=== PATIENT | female | born 2000 | race African-American/Black ===

== ENCOUNTER 2022-06-06 20:32 | Observation (INO) | payer BC, OTHER, SELFPAY ==
--- NOTE | 2022-06-18 08:56 | PM.OBTRLD ---
OB - Triage/Final Diagnosis Visit Information Comments/Additional reasons for admission: I have assessed the risk for this patient, Joyce Vieyra, and determined that she would benefit from observation care. Final Diagnosis (1) False labor: Code(s): O47.9 - False labor, unspecified Status: Acute
== END 2022-06-06 22:30 | disposition home or self-care (01) ==
PROVIDERS: Admitting Provider Obstetrics & Gynecology; Visit Provider Obstetrics & Gynecology
DX: O47.9 False labor, unspecified (principal); Z3A.00 Weeks of gestation of pregnancy not specified
CPT/HCPCS: G0378; G0379

== ENCOUNTER 2022-06-17 19:46 | Inpatient (IN) | payer BC, OTHER, SELFPAY ==
--- NOTE | 2022-06-17 19:46 | LDADM ---
This patient, Joyce Vieyra, was admitted to Labor/Delivery/Recovery 105 on 06/17/22 at 19:46. Plans for labor, pain management and were discussed with patient. Patient/family oriented to hospital policies and general routines including ID bracelet, bed and alarms, visiting hours, pain management, procedures, bathroom and other care routines, personal items, smoking policy, room service/diet and guest tray routines, security routines, and visiting hours. Patient/Family are encouraged to report perceived risks to care and to ask questions if they do not understand what they are told or what they should do. See OBIX for further documentation.
[2022-06-17 21:27] VITALS: BMI 24.9
[2022-06-17 21:31] VITALS: BP 93/53; PULSE 70
[2022-06-17 21:46] VITALS: BP 112/67; PULSE 80
[2022-06-17 21:49] VITALS: RESP 16; TEMP 37.1
[2022-06-17 21:51] LABS: Basophils Percent Auto 0.3 % (0.2-1.2); Eosinophils Absolute Auto 0.1 K/mm3 (0-0.3); Eosinophils Percent Auto 0.8 % (0-4.4); Hemoglobin 11.3 g/dL (12.0-15.0); Immature Granulocyte Absolute 0.18 K/mm3 (0.00-0.031); Immature Granulocyte Percent A 1.5 % (0-0.5); Lymphocytes Absolute Auto 1.31 K/mm3 (0.9-3.2); Lymphocytes Percent Auto 11.1 % (18.3-44.2); Mean Corpuscular HGB Conc 32.3 g/dl (32-36); Mean Corpuscular Hemoglobin 29.4 pg (26-34); Mean Corpuscular Volume 90.9 fl (80-100); Mean Platelet Volume 9.8 fl (7.4-10.4); Monocytes Percent Auto 8.1 % (2.6-8.5); Neutrophils Absolute Auto 9.2 K/mm3 (1.3-6.7); Neutrophils Percent Auto 78.2 % (45.5-73.1); Platelet Count Result 180 k/mm3 (150-375); Red Blood Count 3.85 M/mm3 (4.2-5.4); Red Cell Distribution Width 17.3 % (11.5-14.5); White Blood Count 11.8 K/mm3 (4.5-10.0)
[2022-06-17 22:39] VITALS: BP 104/83; PULSE 75
[2022-06-17 23:59] VITALS: BP 120/77; PULSE 78
[2022-06-18] VITALS (26 sets, daily range): BP systolic 92–129; BP diastolic 51–83; PULSE 62–93; RESP 14–18; TEMP 36.6–37.3; O2SAT 91–98
[2022-06-18] MEDS: fentaNYL CITRATE INJ (*CRX) 100 MCG/2 ML VIAL 50 MCG IV PUSH ×2 (00:34→02:22)
[2022-06-18] MEDS: fentaNYL CITRATE INJ (*CRX) 100 MCG/2 ML VIAL IV PUSH ×4 (03:27→09:11)
--- NOTE | 2022-06-18 08:47 | WPDOBADMIT ---
Obstetrics - Admit Note Admission Note: 22 y /o at 39 weeks here in spontaneous labor. VSS Regular contractions FHR category 1 Cervix 5/90/0 AROM small amount of clear odorless fluid Anticipate record reviewed. No pertinent additions to the history and/or any subsequent changes in the physical findings that are not consistent with the expected course of the were found. Additions to the history and/or subsequent changes in the physical findings follow. None.
--- NOTE | 2022-06-18 10:51 | PM.OBPRVD ---
OB - Delivery Note Procedure Delivery date: 06/18/22 Procedure: Induction method: None Delivery augmentation: Rupture of Membranes Delivery monitor: External FHT and External Uterine Route of delivery: Episiotomy description: None Laceration Description: Superficial and Other (Small superficial left inner labia and left perineal. Just skin involvement. No suture needed.) Quantitative Blood Loss (ml): 104 Anesthesia type: None Narrative: Called for unmedicated delivery. Spontaneous delivery. to mother abdomen. Mother and baby in stable condition. Cord venous gas collected and handed off to staff. Unable to collect arterial. [place] Baby Date of : 06/18/22 Time of : 10:35 Weeks of gestation at delivery: 39 Infant gender: Female Weight (pounds): 7 Weight (ounces): 7 presentation: vertex position: Left Occiput Anterior Placenta delivery description: Spontaneous score one minute: 9 score five minutes: 9
[2022-06-18] MEDS: OXYTOCIN 30 UNITS/NS 500 ML 30 UNITS/500 ML BAG 999 UNITS IV CONT (11:31)
[2022-06-18] MEDS: OXYTOCIN 30 UNITS/NS 500 ML 30 UNITS/500 ML BAG 125 UNITS IV CONT (11:33)
[2022-06-18] MEDS: HYDROcodone/acetaminophen (*CRX) 5-325 MG TABLET 1 TAB PO (12:21)
[2022-06-18] MEDS: WITCH HAZEL 40 PADS 1 PAD TOPICAL (12:38)
[2022-06-18] MEDS: BENZOCAINE 20% AER SPR (*SP) 56 GM CAN 1 SPRAY TOPICAL (12:38)
--- NOTE | 2022-06-18 15:09 | OBPPTRN ---
[id number] Patient transferred to post room #288 via W/C. Support person present. Oriented to unit, room, information board, rooming in, admission packet and security measures. Patient verbalizes understanding.
[2022-06-18] MEDS: ACETAMINOPHEN 325 MG TABLET 650 MG PO (16:08)
[2022-06-18] MEDS: IBUPROFEN 600 MG TABLET PO (16:11)
[2022-06-19] MEDS: ACETAMINOPHEN 325 MG TABLET 650 MG PO ×3 (00:16→13:05)
[2022-06-19] MEDS: IBUPROFEN 600 MG TABLET PO ×3 (00:17→13:06)
[2022-06-19 00:40] VITALS: BP 101/53; PULSE 73; RESP 14; TEMP 37.1; O2SAT 98
[2022-06-19 04:05] VITALS: BP 98/68; PULSE 67; RESP 16; TEMP 36.4; O2SAT 94
[2022-06-19 05:00] LABS: Hemoglobin 9.9 g/dL (12.0-15.0)
[2022-06-19] MEDS: POLYSACCHARIDE IRON COMPLEX 150 MG CAPSULE PO (07:02)
[2022-06-19] MEDS: MULTIVIT/MIN/PREN/FOL AC/IRON TABLET 1 TAB PO (07:02)
[2022-06-19] MEDS: DOCUSATE SODIUM 100 MG CAPSULE PO (07:02)
[2022-06-19 07:10] VITALS: PULSE 67; RESP 16; O2SAT 94
[2022-06-19 07:45] VITALS: BP 100/60; PULSE 64; RESP 16; TEMP 36.6; O2SAT 98
--- NOTE | 2022-06-19 08:19 | PM.OBPNVD ---
OB - PN: Subj Subjective Date/time seen: 06/19/22 08:19 Patient comments: no complaints baby status: doing well OB - PN: Obj Data Labs 06/19/22 04:12 Labs: Laboratory Results - last 24 hr 06/19/22 04:12 Hgb 9.9 L Hct 30.0 L OB - PN A/P Plan day: 1 Plan: routine care Time Spent With Patient Time: Total time spent is greater than 50% in coordination of care (as documented) at patient's floor/unit and/or counseling patient: Time with patient: less than 15 minutes Review of Systems Review of Systems: All systems reviewed & are unremarkable except as noted in HPI and below Exam Narrative: Fundus firm and vaginal flow controlled. No lower ext redness, warmth, or edema. Negative homans. Const: General: comfortable Chest: Breast/axilla inspection: normal inspection of the breasts Resp: Effort & Inspection: normal respiratory effort Cardio: Rate: regular rate GI: GI Palp: Yes Soft to palpation Psych: Appearance: grossly normal Affect: normal affect Attitude: cooperative Thought content: Yes Normal thought content present Judgement: Good judgement present (Psych)
--- NOTE | 2022-06-19 08:21 | P.DS_ITS ---
DS: Admitting Diagnosis Discharge Date 06/19/22 Admitting Diagnosis Labor DS: Discharge Diagnosis Discharge Diagnosis (1) Vaginal delivery: Code(s): O80 - Encounter for full-term uncomplicated delivery Status: Acute OB - DS: Summary OB Procedures : None OB Procedures Intrapartum: Spontaneous Vag Delivery OB Procedures: : None Time Spent with Patient Time attestation: Total time spent providing and/or coordinating discharge services: DS: Data Data Completed and Pending Labs on day of discharge: Labs from last 24 hours 06/19/22 04:12 Hgb 9.9 L Hct 30.0 L Discharge Plan Discharge Attending physician on discharge: Silvana Gonzalez Discharging Clinician: Silvana Gonzalez Patient Disposition: Home, Self-Care Activity: pelvic rest Diet: as tolerated Patient Instructions: Antibiotic Form Stand Alone Forms: General Discharge Information Follow-up/Referrals: Silvana Gonzalez, CNM [Certified Nurse Accounting Support Specialist] - Discharge Medications: New acetaminophen [Mapap (acetaminophen)] 325 mg Tablet 650 mg PO Q6H PRN (Reason: Mild Pain (1-3) Or Headache) Qty: 20 0RF ibuprofen 600 mg Tablet 600 mg PO Q6H PRN (Reason: Cramping) Qty: 20 0RF No Action No Home Medications Date of admission: 06/17/22 19:46 Primary Care Provider: UNKNOWN,DOCTOR Admitting Provider: Mavis Guthrie Attending physician on admission: Mavis Guthrie Condition: Stable
[2022-06-19 10:02] LABS: Rapid Plasma Reagin Non-Reactive (NonReactive)
[2022-06-19] MEDS: TETANUS,DIPHTHERIA,AC PERTUSSIS ADULT (0.5 ML) BOOSTRIX IM (13:07)
--- NOTE | 2022-06-19 13:22 | PC.NURSE ---
Patient was given the opportunity to view the discharge video Mother & Baby Care, The First Two Weeks and to ask questions. Patient declined viewing the video and has been given the mother/baby guide for home reference.
== END 2022-06-19 14:50 | disposition home or self-care (01) | DRG 807 ==
LOC: ANHLDR 21:18 → ANHOB2 06-18 13:40
PROVIDERS: Advanced Practice Midwife; Admitting Provider Obstetrics & Gynecology; Visit Provider Obstetrics & Gynecology
DX: O70.0 First degree perineal laceration during delivery (principal); Z37.0 Single live birth; Z3A.39 39 weeks gestation of pregnancy
CPT/HCPCS: 36415; 85014; 85018; 85025; 86592; 86850; 86900; 86901; 90715; A9270; J2590; J2795; J3010

== ENCOUNTER 2024-11-25 18:56 | Emergency (ER) | payer SELFPAY ==
--- NOTE | ~2024-11-25 | US_ITS ---
EXAMINATION: US OB <=14 wk fetus w TV INDICATION: abdominal pain, unknown TECHNIQUE: Sonography of the pelvis was performed by transabdominal and transvaginal techniques. COMPARISON: None. RESULT: Uterus: 8.9 x 5.7 x 6.5 cm. Anteverted. Irregular, thickened endometrium measuring up to 22 mm, with multifocal, irregular hypoechoic cystic areas. Intrauterine gestational sac: Not seen. Right ovary: 3.6 x 2.0 x 2.8 cm. Vascular flow is present. No adnexal mass. Left ovary: 2.7 x 1.2 x 2.1 cm. Vascular flow is present. No adnexal mass. Pelvis free fluid: Moderate volume pelvic ascites. IMPRESSION: of unknown location. No definite intrauterine gestational sac identified. Irregular, thickened endometrium, with several h ypoechoic cystic areas, any one of which could represent an early gestational sac, without identifiab le pole. No sonographic evidence of ectopic . Recommend close clinical and sonographic follow-up. Reviewed, dictated and finalized at location K. IMPRESSION: of unknown location. No definite intrauterine gestational sac identified. Irregular, thickened endom etrium, with several hypoechoic cystic areas, any one of which could represent an early gestational sac, without identifiable pole. No sonographic evidence of ectopic . Recommend close clinical and sonographic follow-up.
[2024-11-25 18:57] VITALS: BP 109/66; PULSE 90; RESP 18; TEMP 36.6; O2SAT 100
--- OUTSIDE RECORDS SUMMARY | 2024-11-25 18:58 | XMS_ITS | Clinical Summary ---
Author Organization [facility] Address [address] [place] [address] Care Team Providers Care Software Sales Executive Name Role Phone Unavailable Primary Care Provider Unavailabl e Source Comments [facility],non-owned Affiliates and Associated Physician Practices is amultiple site organization consisting of ambulatory clinics and hospital sitesin [place], [place], [place] and [place]. This disclosure is being madepursuant to the Care Everywhere program and may not contain all information available regarding this patient. Last updated 18.[facility] Allergies No known active allergies Medications * Be aware that medications may not be up to date on this document. Alwaysverify current medications with the patient. 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 Not hard at all 09/03/2023 [facility] [place] of Occupat ional Health - Occupational Stress Questionnaire Answer Date Recorded Do you feel stress - tense, restless, nervous, or anxious, or unable to sleep at night because your mind is troubled all the time - these days? Only a little 09/03/2023 Hunger Vital Sign Answer Date Recorded Within the past 12 months, y ou worried that your food would run out before you got the money to buy more. Never true 09/03/19 24 Within the past 12 months, t he food you bought just didn't last and you didn't have money to get more. Never true 09/03/2023 PRAPARE - Transportation Answer Date Re corded In the past 12 months, has l ack of transportation kept you from medical appointments or from getting medications? No 09/2023 In the past 12 months, has l ack of transportation kept you from meetings, work, or from getting things needed for daily living? No 09/03/2023 Housing Stability Vital Sign Answer Memo e Recorded In the last 12 months, was t here a time when you were not able to pay the mortgage or rent on time? Yes 09/03/2023 In the last 12 months, how many places have you lived? 2 09/03/2023 In the last 12 months, was t here a time when you did not have a steady place to sleep or slept in a nursing home (including now)? No 09/03/2023 [place] Depression Scale Answer Date Recorded [place] Depression Scale Total 0 09/03/2023 The thought of harming myself has occurred to me . Never 09/03/2023 Comments No Sex and Gender Information Value Date Recorded Sex Assigned at Not on file Legal Sex Female 1:36 PM CDT Gender Identity Not on file Sexual Orientation Not on file Last Filed Vital Signs Vital Sign Reading Time Taken Comments Blood Pressure 107/69 09/03/2023 9:58 AM CDT Pulse 64 09/03/2023 9:58 AM CDT Temperature - - Respiratory Rate 16 09/03/2023 9:58 AM CDT Oxygen Saturation - - Inhaled Oxygen Concentration - - Weight 52.2 kg (115 lb) 09/03/2023 9:58 AM CDT Height - - Body Mass Index - - Plan of Treatment Health Maintenance Due Date Last Done Comments HPV VACCINE (1 - 3-dose series) 2013 DTAP/TDAP/TD VACCINES (1 - Tdap) 2017 HEPATITIS B VACCINE (1 of 3 - 19+ 3-dose series) 2017 COVID-19 VACCINE (1 - 2023-2 5 season) 2023 DEPRESSION SCREENING 04/30/2024 INFLUENZA VACCINE (#1) 2024 8, 02/02/2016, 01/28/2013 PAP SMEAR 09/02/2026 09/03/2023 ZOSTER VACCINE (1 of 2) 2048 HEPATITIS C SCREENING Completed 09/03/2023 HIV SCREENING Completed 09/03/2023 HIB VACCINE Aged Out No longer eligi ble based on patient's age to complete this topic MENINGOCOCCAL (Group B) VACCINE SHARED DECISION-MAKING Aged Out No longer eligible based on patient's age to complete this topic MENINGOCOCCAL GROUPS A/C/Y/W VACCINE Aged Out No longer eligible b ased on patient's age to complete this topic PNEUMOCOCCAL VACCINE Aged Out No long er eligible based on patient's age to complete this topic Procedures Procedure Name Priority Date/Time Associated Diagnosis Comments PAP IG LB RFLX HPV APTIMA ASCU Routine 09/03/2023 10:48 AM CDT Supervision of high risk , antepartum HEPATITIS C ANTIBODY Routine 09/03/2023 10:46 AM CDT Supervision of high risk , antepartum HIV-1 HIV-2 ANTIBODY + HIV P24 AG PANEL Routine 09/03/2023 10:46 AM CDT Supervision of high risk , antepartum from Last 3 Months or Most Recently Relevant to Health Maintenance Results * PAP IG LB RFLX HPV APTIMA ASCU (09/03/2023 10:48 AM CDT) Diagnosis Comment 09/06/2023 3:10 PM CDT [facility] ([facility]) Comment: NEGATIVE FOR INTRAEPITHELIAL LESION OR MALIGNANCY. REACTIVE CELLULAR CHANGES AND/OR REPAIR ARE PRESENT. Specimen Adequacy Comment 024 3:10 PM CDT [facility] ([facility]) Comment: Satisfactory for evaluation. Endocervical and/or squamous metaplastic cells (endocervical component) are present. Performed by Comment 09/06/2023 3:10 PM CDT [facility] ([facility]) Comment:Nanda Chen Cytote chnologist (ASCP) Electronically Signed by Comment 09/06/2023 3:10 PM CDT [facility] ([facility]) Comment:Krystin Nelson MD, P athologist Comment . 09/06/2023 3:10 PM CDT [facility] ([facility]) Note Comment 09/06/2023 3:10 PM CDT [facility] ([facility]) Comment: The Pap smear is a screening test designed to aid in the detection of premalignant and malignant conditions of the uterine cervix. It is not a diagnostic procedure and should not be used as the sole means of detecting cervical cancer. Both false-positive and false-negative reports do occur. IGLBP CPT Code Automation Comment 09/06/2023 3:10 PM CDT [facility] ([facility]) Comment: This liquid based ThinPrep(R) pap test was screened with the use of an image guided system. Note Comment 09/06/2023 3:10 PM CDT [facility] ([facility]) Comment: The HPV DNA reflex criteria were not met with this specimen result therefore, no HPV testing was performed. Pathology/Cytolo gy ENTIRE ENDOCERVIX / Unknown Collection / Unknown 09/03/2023 10:48 AM CDT 09/03/2023 11:16 AM CDT Narrative [facility] ([facility]) - 09/06/2023 3:10 PM CDT Performed at: 01 - [address] [id number] [place] Machine Operator Helper: Gina Fernandez MD, Phone: [phone] Specimen Comment: No. of containers..01 ThinPrep Vial us Sherry Sutherland MD LAB - PATHOLOGY /CYTOLOGY ORDERABLES Final Result [facility] ([facility]) [address] [place] [address] * HIV-1 HIV-2 ANTIBODY + HIV P24 AG PANEL (09/03/2023 10:46 AM CDT) HIV1/2 Ab + P24 Ag Non Reactive Non Reactive 09/03/2023 12:09 PM CDT [facility] Blood BLOOD SPECIMEN / Unknown Venipuncture / Unknown 09/03/2023 10:46 AM CDT 09/03/2023 11:18 AM CDT Narrative [facility] - 09/03/2023 12:09 PM CDT No Laboratory evidence of HIV infection. Sherry Sutherland MD LAB - CHEMISTRY ORDERABLES Final Result [facility] [address] [place], [place] [id number] * HEPATITIS C ANTIBODY (09/03/2023 10:46 AM CDT) Pathologist [facility] HCV Antibody Screen Non Reactive Non Reactive 09/03/2023 12:10 PM CDT [facility] Blood BLOOD SPECIMEN / Unknown Venipuncture / Unknown 09/03/2023 10:46 AM CDT 09/03/2023 11:18 AM CDT Narrative [facility] - 09/03/2023 12:10 PM CDT Non Reactive - Antibodies to Hepatitis C virus (HCV) were not detected, result does not exclude early acute HCV infection. Sherry Sutherland MD LAB - CHEMISTRY ORDERABLES Final Result [facility] [address] [place] [id number] from Last 3 Months or Most Recently Relevant to Health Maintenance Insurance [facility]
--- OUTSIDE RECORDS SUMMARY | 2024-11-25 18:58 | XMS_ITS | Encounter Summary ---
Author Organization [facility] Address [address] [place] [address] Phone Care Team Providers Care Loan Analyst Name Role Phone Estelle Lopez APRN, CNP Unavailable [phone] Barak Bucio Primary Care Provider Arthur Espinosa MD Unavailable [phone] Reason for Visit * Reason Comments Medication Refill Encounter Details Date Type Department Care Team (Late st Contact Info) Description 06/30/2023 Refill [facility] - Primary Care - [place] [address] [place] [address] Barak Bucio PAC [address] [place] [address] Medication Refill Social History Tobacco Use Types Packs/Day Years Used Date Smoking Tobacco: Never Smokeless Tobacco: Never Alcohol Use Standard Drinks/Week Comments Yes 0 (1 standard drink = 0.6 oz pur e alcohol) rare PHQ-2 Answer Date Recorded Total Score - Questions 1-9 0 06/28 Sexually Active Control Partners Comments Yes None, Male Condom Male Comments Unknown Sex and Gender Information Value Date Recorded Sex Assigned at Not on file Legal Sex Female 7:20 PM CDT Gender Identity Not on file Sexual Orientation Not on file documented as of this encounter Miscellaneous Notes * Telephone Encounter - Barak Bucio PAC - 07/02/2023 1:24 PM CST Refill approved. ING SUPERVISOR * Telephone Encounter - Castro Membreno RN - 07/02/2023 8:04 AM CST Medication failed the protocol, provider to review and approve the medication order if appropriate. Requested Prescriptions Pending Prescriptions Disp Refills triamcinolone (KENALOG) 0.1 % Cream [Pharmacy Med Name: TRIAMCINOLONE 0.1% CREAM 80GM] 80 g 0 Sig: APPLY EXTERNALLY TO RASH ON ELBOW AND KNEE CREASES TWICE DAILY Not Delegated - Topical Steroids Protocol Failed - 06/30/2023 2:25 PM Failed - This refill cannot be delegated Passed - Visit with relevant provider in past 12 months or upcoming 90 days Recent Visits Date Type Provider Dept 06/29/23 Office Visit Barak Bucio PAC [facility] 05/28/23 Office Visit Barak Bucio PAC [facility] Showing recent visits within past 365 days and meeting all other requirements Future Appointments Date Type Provider Dept 07/30/23 Appointment Barak Bucio PAC [facility] Showing future appointments within next 90 days and meeting all other requirements ING SUPERVISOR documented in this encounter Plan of Treatment Not on file documented as of this encounter Visit Diagnoses Diagnosis Flexural eczema Other atopic dermatitis and related conditions documented in this encounter Additional Health Concerns Infection Onset Date Last Indicated Resolved Time COVID - 19 12/22/2023 12/22/2023 01/01/2024 12:1 6 AM CDT COVID - 19 04/27/2024 04/27/2024 04/27/2024 1:50 PM CLOSING SUPERVISOR Assessment Noted Time PHQ-9 Depression Total Score: 0 05/28/19 9:38 AM CLOSING SUPERVISOR documented as of this encounter Care Teams Loan Analyst Relationship Specialty Start Date End Date Barak Bucio PAC [address] [place] [id number] PCP - General Physician Shipping Supervisor 05/28/23 Estelle Lopez, ELECTRICAL TROUBLESHOOTER, HOTEL SERVICES SUPERVISOR [address] [place] [address] Nurse Practitioner Advanced Practice Nurse 07/12/20 06/10/24 Arthur Espinosa MD [address] [address] Consulting Physician Urology 11/04/24 documented as of this encounter
--- OUTSIDE RECORDS SUMMARY | 2024-11-25 18:58 | XMS_ITS | Data Portability ---
Author Organization [facility] Address [address] [place] [address] [place] [address] Assessment No assessment recorded. Plan of Treatment Reminders Order Date Submit Date Provider Last Modified By Organization Details Last Modified Time Details Appointments None recorded. Lab None recorded. Referral None recorded. Procedures None recorded. Surgeries None recorded. Imaging US, obstetric, biophysical profile + non-stress test 2022 023 [email or web address] [place], [facility] [address], [address], [place], [address], 3 21:48:12 non-stress test 2022 023 [email or web address] [place] [facility] [address], [address], [place], [address], 3 12:07:26 non-stress test 2022 023 [email or web address] [place] [facility] [address], [address], [place], [address], 3 11:54:18 Medication Orders None recorded. Patient TargetsNo targets recorded. Patient InstructionsNo instructions recorded. Reason for Referral None Reported. Results Created Date Observation Date Name Description Value Unit Range Abnormal Flag Note LastModifiedBy Organization Detail LastModifiedTime 05/30/19 23 05/30/2022 CULTU RE: GROUP B STREP SCREE N, REFLE X SUSCE PTIBI LITY result report SEE RESULT S BELOW Test: Cultu re: Group B Strep , Refle x Susce ptibi lity ([facility] ) Speci men Sourc e: Vagin a/Rec fiorella Speci men Type: Vagin al/Re ctal Speci men Date: 2022 1:39 PM Resul t Date: 023 12:28 PM Resul t Statu s: Final resul t Abnor mal: No Resul ting Lab: [facility] [address] [facility] [address] Tel: CULTU RE ----- ----- ----- --- No Group B strep isola susan at 2 days (joan ctive broth enhan cemen t) Not Available [facility] (Lab) [address], [place], [address], 06/02/2022 13:30:53 05/11/19 23 05/11/2022 US, obste tric, bioph ysica l profi le + non-s tress test No observ ation record ed. [email or web address] [place] [address], [place], [address], 05/11/2022 13:13:16 05/11/19 23 05/11/2022 non-s tress test No observ ation record ed. [email or web address] [place] [address], [place], [address], 05/11/2022 12:56:14 05/11/19 23 05/11/2022 US, obstute tric, bioph ysica l profi le + non-s tress test No observ ation record ed. [email or web address] [address] [facility], [place], [address], 05/12/2022 11:22:40 05/16/19 23 05/16/2022 non-s tress test No observ ation record ed. [email or web address] [place] [address], [place], [address], 05/16/2022 21:38:00 05/16/19 23 05/16/2022 US, obste tric, follo w-up No observ ation record ed. [email or web address] [place] [address], [place], [address], 05/16/2022 11:57:52 05/16/19 23 05/16/2022 US, obste tric, follo w-up No observ ation record ed. [email or web address] [address], [place], [address], 05/17/2022 18:37:04 05/23/19 23 05/23/2022 non-s tress test No observ ation record ed. [email or web address] [place] [address], [place], [address], 05/23/2022 11:47:25 05/23/19 23 05/23/2022 US, obste tric, bioph ysica l profi le + non-s tress test No observ ation record ed. [email or web address] [place] [address], [place], [address], 05/23/2022 13:44:19 05/23/19 23 05/23/2022 US, obste tric, bioph ysica l profi le + non-s tress test No observ ation record ed. [email or web address] [address], [place], [address], 05/24/2022 11:10:51 05/30/19 23 05/30/2022 US, obste tric, bioph ysica l profi le + non-s tress test No observ ation record ed. [email or web address] [place] [address], [place], [address], 05/30/2022 11:43:55 05/30/19 23 05/30/2022 US, obste tric, bioph ysica l profi le + non-s tress test No observ ation record ed. [email or web address] [address], [place], [address], 05/30/2022 23:35:35 05/30/19 23 05/30/2022 non-s tress test No observ ation record ed. [email or web address] [place] [address], [place], [address], 05/30/2022 22:31:10 06/06/19 23 06/06/2022 non-s tress test No observ ation record ed. [email or web address] [place] [address], [place], [address], 06/06/2022 11:31:34 06/06/19 23 06/06/2022 US, obste tric, follo w-up No observ ation record ed. [email or web address] [place] [address], [place], [address], 06/06/2022 13:02:02 06/06/19 23 06/06/2022 US, obste tric, follo w-up No observ ation record ed. [email or web address] [address], [place], [address], 06/08/2022 23:14:15 06/13/19 23 06/13/2022 US, obste tric, bioph ysica l profi le + non-s tress test No observ ation record ed. [email or web address] [place] [address], [place], [address], 06/13/2022 12:40:44 06/13/19 23 06/13/2022 US, obste tric, bioph ysica l profi le + non-s tress test No observ ation record ed. [email or web address] [address], [place], [address], 06/13/2022 17:56:31 06/13/19 23 06/13/2022 non-s tress test No observ ation record ed. [email or web address] [place] [address], [place], [address], 06/13/2022 17:14:16 Result Notes None recorded. Problems Name Problem SNOMED Code Status Onset Date Resolution Date Notes Provider Name and Address Organization Details Recorded Time Infectio n by Marge thornton [id number] Completed SILVERIO neg, repeat STD testing 3rd tri. Retest 05/04 [facility] 3 16:02:37 Anemia of pregnanc y [id number] Completed to start Fe [facility] [place] [facility] 3 16:02:37 History of previous intraute rine growth restrict ed [id number] Completed weekly NST [facility] 3 16:02:37 Problem Notes None recorded. Procedures Surgical History Date Name Laterality Status Provider Name and Address Organization Details Recorded Time 04/30/19 21 termination of completed Love Ty [facility] 05/23/2022 12:31:27 04/30/19 18 Ectopic completed Kourtney Adorno [facility] 11/17/2021 10:04:00 Imaging Results None recorded. Procedure Notes None recorded. Medical Equipment None Reported. Allergies No known drug allergies Medications Name Sig Start Date Stop Date Status Note LastModified by Organization Details LastModified Time Pain Reliever (acetaminop hen) 325 mg tablet 07/17 completed Not Available Not Available Not Available metronidazo le 0.75 % (37.5 mg/5 gram) vaginal gel INSERT 1 APPLICATO RFUL VAGINALLY EVERY NIGHT FOR 5 DAYS 11/17 completed Not Available Not Available Not Available ondansetron HCl 4 mg tablet TAKE 1 TABLET BY MOUTH EVERY 4 TO 6 HOURS NEEDED FOR NAUSEA OR VOMITING 12/15 completed Not Available Not Available Not Available metronidazo le 500 mg tablet TAKE 1 TABLET BY MOUTH TWICE DAILY FOR 7 DAYS DIRECTED 12/15 completed Not Available Not Available Not Available sulfamethox azole 800 mg-trimetho prim 160 mg tablet TAKE 1 TABLET BY MOUTH TWICE DAILY FOR 5 DAYS 11/17 completed Not Available Not Available Not Available cephalexin 500 mg capsule TAKE ONE CAPSULE BY MOUTH THREE TIMES DAILY FOR 7 DAYS 11/17 completed Not Available Not Available Not Available ibuprofen 600 mg tablet TAKE 1 TABLET BY MOUTH EVERY 6 HOURS NEEDED FOR CRAMPING 07/17 completed Not Available Not Available Not Available metoclopram mala 10 mg tablet 11/17 completed Not Available Not Available Not Available nitrofurant oin monohydrate /macrocryst als 100 mg capsule TAKE 1 CAPSULE BY MOUTH TWICE DAILY WITH MEALS FOR 7 DAYS 12/15 completed Not Available Not Available Not Available 28 mg iron-800 mcg tablet TAKE 1 TABLET BY MOUTH EVERY NIGHT FOR 30 DAYS 11/17 completed Not Available Not Available Not Available ID NOW COVID-19 Test Kit TEST DIRECTED TODAY 02/06 completed Not Available Not Available Not Available Vitals Date Recorded Body height Body mass index (BMI) Body weight Systolic And Diastolic Provider Name and Address Organization Details Last Updated DateTime 06/06/2022 165.1 cm 24.3 kg/m2 14743.486 02 g 99/65 mm[Hg] Christine Cantu [facility] 06/06/2022 11:54:42 Date Recorded Body height Body mass index (BMI) Body weight Systolic And Diastolic Provider Name and Address Organization Details Last Updated DateTime 06/13/2022 165.1 cm 24.6 kg/m2 35361.670 76 g 100/65 mm[Hg] Love Ty [facility] 06/13/2022 12:10:01 Date Recorded Body weight Provider Name an d Address Organization Details Last Updated DateTime 07/17/2022 99760.40180 g Nigel Barnett [facility] 08/14/2022 16:02:41 Date Recorded Body height Body mass index (BMI) Systolic And Diastolic Provider Name and Address Organization Details Last Updated DateTime 07/17/2022 165.1 cm 22.1 kg/m2 122/83 mm[Hg] Love Ty [facility] 07/17/2022 12:28:05 Social History Question Answer Notes LastModified by Organizat ion Details LastModified Time Tobacco Smoking Status Never Smoker Terry Bartholomew moiz, [facility] 02/06/2022 10:58:21 Do You Have An Advance Directive? No Information n ot available 11/17/2021 If You Are , What Was Your Level Of Alcohol Consumption Prior To ? Occasional [email or web address] Information not available 02/06/2022 How Many Years Have You Consumed Alcohol? 2 Information not available 11/17/2021 Are You Blind Or Do You Have Difficulty Seeing? No Information n ot available 11/17/2021 What Is Your Level Of Caffeine Consumption? Occasional Information not available 11/17/2021 How Much Tobacco Do You Chew? None Information not available 11/17/2021 In The 14 Days Before Symptom Onset, Have You Had Close Contact With A Laboratory-confirm ed COVID-19 While That Case Was Ill? No Information n ot available 11/17/2021 In The 14 Days Before Symptom Onset, Have You Had Close Contact With A Person Who Is Under Investigation For COVID-19 While That Person Was Ill? No Information not available 11/17/2021 Have You Been To An Area Known To Be High Risk For COVID-19? No Information not available 11/17/2021 Are You Deaf Or Do You Have Serious Difficulty Hearing? No Information not available 11/17/2021 What Type Of Diet Are You Following? REGULAR Information n ot available 11/17/2021 What Is The Highest Grade Or Level Of School You Have Completed Or The Highest Degree You Have Received? [id number] Information not available 11/17/2021 Are There Any Guns Present In Your Home? No Information not available 11/17/2021 Do You Use Protection During Sex? No Information not available 11/17/2021 Do You Use Your Seat Belt Or Car Seat Routinely? Yes Information not available 11/17/2021 Do You Have Smoke And Carbon Monoxide Detectors In Your Home? Yes Information not available 11/17/2021 How Much Tobacco Do You Smoke? No Information not available 11/17/2021 Do You Use Sunscreen Routinely? No Information not available 11/17/2021 Have You Used IV Drugs? No Information not available 11/17/2021 Do You Have Difficulty Walking Or Climbing Stairs? No [email or web address] Information not available 03/07/2022 Sex: Unknown Functional Status Question Answer Note LastModified by Organizat ion Details LastModified Time Do you use any illicit or recreational drugs? No Information not available 11/17/2021 What is your level of alcohol consumption? None Information not available 11/17/2021 Are you able to walk? YESWOREST Information not available 11/17/2021 Are you able to care for yourself independently? Yes Information not available 03/07/2022 What is your occupation? D[employer] Information not available 11/17/2021 Do you have difficulty dressing, bathing, grooming, or toileting? No [email or web address] Information not available 03/07/2022 What is your exercise level? None Information not available 11/17/2021 Mental Status Question Answer Note LastModified by Organization D etails LastModified Time Do you feel stressed (tense, restless, nervous, or anxious, or unable to sleep at night)? [id number] Information not available 11/17/2021 Family History Nothing Reported. Medical History Condition Response Allergies (Food, seasonal, environmental ) N Other Y Breast Cancer N Drug/Latex Allergies/Reactions N Blood Transfusion N Dermatologic Disorders N Lung Disease N Defects or Inherited Disease N Breast Problem N Gestational Diabetes N Hematologic disorders N Anesthesia Complications N History of STI N Deep Vein Thrombosis N Polycystic ovary syndrome N Anxiety Disorder N Autoimmune disease N Arthritis N Infertility N Polyps N Acid Reflux (GERD) N History of abnormal pap N Cancer N Stroke N Varicosities N Neurologic/Epilepsy N Endometriosis N High Cholesterol N Headaches N Fibromyalgia N Kidney Disease N Heart Problems N Kidney or Bladder Problems N Thyroid Problems N GI Problems N Eating Disorder N Anemia Y Art (IVF or FET) N Psychiatric Illness N Ovarian Cancer N Diabetes N Pulmonary (TB, Asthma) N Hepatitis/Liver Disease N No Past Medical History N Eczema N Urinary Tract Infection N Abuse/Domestic Violence N Asthma N Trauma/Violence N Depression/ depression N Heart Disease N Pre-Eclampsia N Hypertension N Osteoporosis N Thrombophilias N Gynecological History Statement/Question Response STIs/STDs N Date of Last Pap Smear Sexual Problems? N Current Control Method None LMP Unknown Sexually Active? Y Obstetrics History GPAL:G 4 P 2 0 2 2 Type Value Full Term 2 Induced 1 Living 2 Ectopics 1 Total 4 Past Encounters Encounter ID Performer Location Encounter Start Date Encounter Closed Date Diagnosis/Indication Diagnosis SNOMED-CT Code Diagnosis ICD10 Code Diagnosis Note [id number] Yobany Guthrie MD [place] [address] [address] 11/17/2021 09:27:58 11/17/2021 09:55:39 [id number] Yobany Guthrie MD [place] [address] [address] 11/17/2021 09:28:12 11/17/2021 11:16:12 Urinary symptoms 680200431 R39.9 to treat for UTI. She was diagnosed with UTI previously . She was not treated. She denies any dysuria or hematuria or urgency. Amenorrhea 49544313 N91. 2 This patient is a 21-year-ol d multiparou s female who presents for amenorrhea . She has positive test. Ultrasound performed today. She has an 8 week 3 day gestation. She is continent of her last menstrual. She denies any nausea, vomiting, fever, chills. She denies any vaginal bleeding or cramping. We discussed early care today we spent more than 30 minutes face-to-fa ce. More than 50% was counseling . She will follow-up in 4 weeks . She will have 1st visit in 4 weeks. [id number] Yobany Guthrie MD [place] [address] [address] 12/15/2021 11:37:02 12/15/2021 12:10:24 screening 769444671 Z36.82 [id number] Yobany Guthrie MD [place] [address] [address] 12/15/2021 11:37:44 12/15/2021 13:52:36 Routine care 895587418 Z34.81 [id number] Radha Aguilar MD [place] [address] [address] 01/09/2022 12:04:44 01/11/2022 15:27:15 Routine care 248705684 Z34.82 Anemia of 2734 2003 O99.019 [id number] Radha Aguilar MD [place] [address] [address] 02/06/2022 10:58:13 02/06/2022 12:42:19 screening for malformation 873363124 Z36.3 [id number] Radha Aguilar MD [place] [address] [address] 02/06/2022 10:58:34 02/06/2022 13:54:09 Routine care 007087232 Z34.82 [id number] Yobany Guthrie MD [place] [address],[place] [address] 03/07/2022 11:13:28 03/07/2022 12:18:41 Routine care 943477145 Z34.81 [id number] MD Mary Abreu [address] [address] 03/30/2022 11:56:15 03/30/2022 12:55:38 Routine care 476029543 Z34.81 [id number] MD Mary Abreu [address] [address] 04/17/2022 11:32:38 04/17/2022 12:53:42 History of previous intrauterine growth restricted 5442397795 75289 Z87.59 [id number] MD Mary Abreu [address] [address] 04/19/2022 09:33:34 04/19/2022 10:12:42 Medical examination for suspected condition 381953870 Z03.74 Z3A.30 [id number] MD Mary Abreu [address] [address] 05/04/2022 11:33:59 05/04/2022 13:03:24 Routine care 384126295 Z34.81 [id number] MD Mary Abreu [address] [address] 05/11/2022 12:04:19 05/11/2022 12:49:01 Anemia of 63033917 O99.013 Z03.74 Z3A.33 [id number] MD Mary Abreu [address] [address] 05/11/2022 12:04:31 05/11/2022 12:56:30 History of previous intrauterine growth restricted 8521035014 35657 Z87.59 [id number] Silvana Gonzalez [facility] [address],[place] [address] 05/11/2022 12:05:58 05/11/2022 14:28:26 Routine care 523833083 Z34.93 [id number] MD Mary Abreu [address],[place] [address] 05/16/2022 10:00:59 05/16/2022 11:47:25 History of previous intrauterine growth restricted 2825258749 23704 Z87.59 [id number] MD Mary Abreu [address] [address] 05/16/2022 10:01:17 05/16/2022 11:47:06 Anemia of 25497182 O99.013 Z03.74 Z3A.34 [id number] MD Mary Abreu [address] [address] 05/16/2022 10:01:33 05/16/2022 11:46:19 Routine care 592055679 Z34.81 [id number] Yobany Guthrie MD [place] [address],[place] [address] 05/23/2022 10:52:27 05/23/2022 11:41:49 History of previous intrauterine growth restricted 4316512210 65676 Z87.59 [id number] MD Mary Abreu [address] [address] 05/23/2022 10:52:46 05/23/2022 12:24:23 Anemia of 88238853 O99.013 O09.293 Z3A.35 [id number] Silvana Gonzalez [facility] [address],[place] [address] 05/23/2022 10:53:05 05/23/2022 15:22:35 Routine care 741494593 Z34.93 [id number] Yobany Guthrie MD [place] [address],[place] [address] 05/30/2022 10:27:07 05/30/2022 12:33:23 History of previous intrauterine growth restricted 3869046857 39249 Z87.59 [id number] MD Mary Abreu [address],[place] [address] 05/30/2022 10:31:45 05/30/2022 11:57:08 Anemia of 45786668 O99.013 O09.293 Z3A.36 [id number] Yobany Guthrie MD [place] [address] [address] 05/30/2022 10:32:17 05/30/2022 13:52:09 Routine care 356122156 Z34.81 [id number] MD Mary Abreu [address] [address] 06/06/2022 10:26:10 06/06/2022 11:54:18 History of previous intrauterine growth restricted 2775428118 78519 Z87.59 [id number] Yobany Guthrie MD [place] [address] [address] 06/06/2022 10:27:42 06/06/2022 11:53:58 Anemia of 02391461 O99.013 Z3A.37 [id number] Silvana Gonzalez CNM [place] [address] [address] 06/06/2022 10:29:07 06/06/2022 14:55:54 Routine care 467332611 Z34.93 [id number] Yobany Guthrie MD [place] [address] [address] 06/13/2022 10:23:59 06/13/2022 12:07:25 History of previous intrauterine growth restricted 6439447451 99928 Z87.59 [id number] Yobany Guthrie MD [place] [address] [address] 06/13/2022 10:24:33 06/13/2022 12:09:04 Anemia of 39539251 O99.013 Z3A.38 [id number] Silvana Gonzalez CNM [place] [address] [address] 06/13/2022 10:24:55 06/14/2022 12:20:07 Routine care 567883182 Z34.93 [id number] Silvana Gonzalez CNM [place] [address] [address] 07/17/2022 12:19:24 07/19/2022 17:42:32 state 11838740 Z39.2 Continue to watch for signs/symp toms of post depression . Return one year from last pap smear for a well woman exam. Will schedule in 1 month. Considerin g mirena IUD. Discussed risks and benefits. Will discuss again at wwe. Patient received above instructio ns, and questions have been answered. If you have any questions please call or respond to this email. Patient was made aware of the patient portal and may obtain a paper copy of today's plan if desired Health Concerns Section Related Observation LastModified by Organization Detai ls LastModified Time None Recorded Concern Status LastModified by Organization Details LastModified Time None Recorded Advance Directives Directive N: Payers Insurance Date Sequence Insurance Name Policy Number Policy Byrnes Covered Member ID Byrnes Member ID Guarantor Name 08/11/2022 1 [facility] (MEDICAID HMO) [id number] Joyce Vieyra [id number] Joyce Vieyra 07/07/2022 2 [place] [facility] Joyce Vieyra [id number] Joyce Vieyra OBGyn Episode Ob Episode Information Episode Created Date Number of Fetuses Patient Bloodtype Patient rh Status Prepregnancy Weight lbs Domestic Partner Domestic Partner Phone Father Name Metal Hanger Status 12/16/19 22 1 O Positive 119 CLOSED Fetus Data First Name Last Name Admitted to NICU Weight (g) Sex Living Outcome Pediatric Complications Fetus ID Race Codes Race Delivery Type Azie 3373.59 05 F true Full Term [id number] Vaginal Delivery Problems Problem Notes Problem Name Start Date End Date Resolution Snomed Code Not e History of previous intrauterine growth restricted 593869531395863 weekly NST Infection by Trichomonas [id number] SILVERIO neg, repeat STD testing 3rd tri. Retest 05/04 Negative. Anemia of 55104384 to start Fe Jamel Calculation Initial Jamel Date Initial Exam Date Initial Exam Provider Initial Ultrasound Date Last Menstrual Period Date Ultra Sound Weeks Gestation 06/26/2022 12/15/2021 11/17/2021 09/18/2021 8 Eighteen To Twenty Week Jamel Update Ultra Sound Date Fundal Height At Umbil Quickening Date Ultra Sound Latest Weeks Gestation Final Jamel Confirmed By Final Jamel Confirmed Date Final Jamel Date Ultra Sound Latest Days Gestation 0 [email or web address] 12/15/2021 06/25/19 23 0 Pre-crista Flowsheet Flowsheet Date 12/15/2021 Beltran Score Blood Edema Fundus Height Fundus Units Glucose Ketones Leukocytes Nitrite Labor Signs Protein Cervic Dilation Cervic Effacement Cervic Station 12 Type Weight in lbs Pre/Post Dialysis Refused Weight 121.242736301511 BP Diastolic BP Location Tested BP Systolic BP Type 67 R arm 106 sitting Fetus Heart Rate Present A 165 Fetus Movement Comments no complaints, this patient is a 21-year-old 4 para 1021 at 12 weeks gestation presents for initial care. Patient is on vaccinated. She is given vaccine recommendation for COVID. She is also given flu and Tdap recommendations. She has no worrisome medical concerns. She has a term 6 lb 4 oz vaginal without complications. We discussed care in detail. Flowsheet Date 01/09/2022 Beltran Score Blood Edema Fundus Height Fundus Units Glucose Ketones Leukocytes Nitrite Labor Signs Protein Cervic Dilation Cervic Effacement Cervic Station neg none none trace Type Weight in lbs Pre/Post Dialysis Refused Weight 124.442717351953 BP Diastolic BP Location Tested BP Systolic BP Type 67 106 Fetus Heart Rate Present A 145 Fetus Movement A Yes Comments Doing fine. NO concerns. Did not start iron for anemia, forgot. Will start now. Trich SILVERIO neg. Will retest STDs in 3rd trimester. Anatomy US next visit. Flowsheet Date 02/06/2022 Beltran Score Blood Edema Fundus Height Fundus Units Glucose Ketones Leukocytes Nitrite Labor Signs Protein Cervic Dilation Cervic Effacement Cervic Station Type Weight in lbs Pre/Post Dialysis Refused BP Diastolic BP Location Tested BP Systolic BP Type Fetus Heart Rate Present Fetus Movement Comments Flowsheet Date 02/06/2022 Beltran Score Blood Edema Fundus Height Fundus Units Glucose Ketones Leukocytes Nitrite Labor Signs Protein Cervic Dilation Cervic Effacement Cervic Station neg none none trace Type Weight in lbs Pre/Post Dialysis Refused Weight 127.578580168054 BP Diastolic BP Location Tested BP Systolic BP Type 68 102 Fetus Heart Rate Present A 150 Fetus Movement A Yes Comments Doing well no concerns. Lilo amada today complete and wnl. Taking iron, tolerating well. Flowsheet Date 03/07/2022 Beltran Score Blood Edema Fundus Height Fundus Units Glucose Ketones Leukocytes Nitrite Labor Signs Protein Cervic Dilation Cervic Effacement Cervic Station neg none 21 none trace Type Weight in lbs Pre/Post Dialysis Refused Weight 135.99969642472 BP Diastolic BP Location Tested BP Systolic BP Type 56 97 Fetus Heart Rate Present A 145 Fetus Movement A Yes Comments no problems Flowsheet Date 03/30/2022 Beltran Score Blood Edema Fundus Height Fundus Units Glucose Ketones Leukocytes Nitrite Labor Signs Protein Cervic Dilation Cervic Effacement Cervic Station 27 Type Weight in lbs Pre/Post Dialysis Refused Weight [id number] BP Diastolic BP Location Tested BP Systolic BP Type 67 R arm 106 sitting Fetus Heart Rate Present A 145 Fetus Movement A Yes Comments no complaints, no problems, diabetes testing today. Flowsheet Date 04/17/2022 Beltran Score Blood Edema Fundus Height Fundus Units Glucose Ketones Leukocytes Nitrite Labor Signs Protein Cervic Dilation Cervic Effacement Cervic Station 30 Type Weight in lbs Pre/Post Dialysis Refused Weight 138.179118201659 BP Diastolic BP Location Tested BP Systolic BP Type 59 R arm 98 sitting Fetus Heart Rate Present A 145 Fetus Movement Comments history growth restriction, growth ultrasound today her as soon as possible, awaiting iron infusion For severe anemi Flowsheet Date 04/19/2022 Beltran Score Blood Edema Fundus Height Fundus Units Glucose Ketones Leukocytes Nitrite Labor Signs Protein Cervic Dilation Cervic Effacement Cervic Station Type Weight in lbs Pre/Post Dialysis Refused BP Diastolic BP Location Tested BP Systolic BP Type Fetus Heart Rate Present Fetus Movement Comments Flowsheet Date 05/04/2022 Beltran Score Blood Edema Fundus Height Fundus Units Glucose Ketones Leukocytes Nitrite Labor Signs Protein Cervic Dilation Cervic Effacement Cervic Station 32 Type Weight in lbs Pre/Post Dialysis Refused Weight 139.697781200730 BP Diastolic BP Location Tested BP Systolic BP Type 58 R arm 96 sitting Fetus Heart Rate Present A 145 Fetus Movement Comments this patient is 21-year-old, multiparous to start weekly NSTs for growth restriction, serial growth ultrasound. No complaints today. Flowsheet Date 05/11/2022 Beltran Score Blood Edema Fundus Height Fundus Units Glucose Ketones Leukocytes Nitrite Labor Signs Protein Cervic Dilation Cervic Effacement Cervic Station Type Weight in lbs Pre/Post Dialysis Refused BP Diastolic BP Location Tested BP Systolic BP Type Fetus Heart Rate Present Fetus Movement Comments Flowsheet Date 05/11/2022 Beltran Score Blood Edema Fundus Height Fundus Units Glucose Ketones Leukocytes Nitrite Labor Signs Protein Cervic Dilation Cervic Effacement Cervic Station Type Weight in lbs Pre/Post Dialysis Refused BP Diastolic BP Location Tested BP Systolic BP Type Fetus Heart Rate Present Fetus Movement Comments Flowsheet Date 05/11/2022 Beltran Score Blood Edema Fundus Height Fundus Units Glucose Ketones Leukocytes Nitrite Labor Signs Protein Cervic Dilation Cervic Effacement Cervic Station neg none none trace Type Weight in lbs Pre/Post Dialysis Refused Weight 141.462677413537 BP Diastolic BP Location Tested BP Systolic BP Type 64 99 Fetus Heart Rate Present Fetus Movement A Yes Comments Doing well. No contractions. Encouraged tdap and to schedule pre admit. History of spontaneous labor. No epidural. Having a girl. Growth ultrasound next week. BPP today normal. Flowsheet Date 05/16/2022 Beltran Score Blood Edema Fundus Height Fundus Units Glucose Ketones Leukocytes Nitrite Labor Signs Protein Cervic Dilation Cervic Effacement Cervic Station Type Weight in lbs Pre/Post Dialysis Refused BP Diastolic BP Location Tested BP Systolic BP Type Fetus Heart Rate Present Fetus Movement Comments Flowsheet Date 05/16/2022 Beltran Score Blood Edema Fundus Height Fundus Units Glucose Ketones Leukocytes Nitrite Labor Signs Protein Cervic Dilation Cervic Effacement Cervic Station Type Weight in lbs Pre/Post Dialysis Refused BP Diastolic BP Location Tested BP Systolic BP Type Fetus Heart Rate Present Fetus Movement Comments Flowsheet Date 05/16/2022 Beltran Score Blood Edema Fundus Height Fundus Units Glucose Ketones Leukocytes Nitrite Labor Signs Protein Cervic Dilation Cervic Effacement Cervic Station 34 Type Weight in lbs Pre/Post Dialysis Refused Weight 142.332820545525 BP Diastolic BP Location Tested BP Systolic BP Type 64 R arm 100 sitting Fetus Heart Rate Present A 134 Fetus Movement Comments no complaints, no problems - routine care. noraml growth US today Flowsheet Date 05/23/2022 Beltran Score Blood Edema Fundus Height Fundus Units Glucose Ketones Leukocytes Nitrite Labor Signs Protein Cervic Dilation Cervic Effacement Cervic Station Type Weight in lbs Pre/Post Dialysis Refused BP Diastolic BP Location Tested BP Systolic BP Type Fetus Heart Rate Present Fetus Movement Comments Flowsheet Date 05/23/2022 Beltran Score Blood Edema Fundus Height Fundus Units Glucose Ketones Leukocytes Nitrite Labor Signs Protein Cervic Dilation Cervic Effacement Cervic Station Type Weight in lbs Pre/Post Dialysis Refused BP Diastolic BP Location Tested BP Systolic BP Type Fetus Heart Rate Present Fetus Movement Comments Flowsheet Date 05/23/2022 Beltran Score Blood Edema Fundus Height Fundus Units Glucose Ketones Leukocytes Nitrite Labor Signs Protein Cervic Dilation Cervic Effacement Cervic Station neg none none trace Type Weight in lbs Pre/Post Dialysis Refused Weight 144.061521699668 BP Diastolic BP Location Tested BP Systolic BP Type 66 101 Fetus Heart Rate Present Fetus Movement A Yes Comments Doing well. Pre admit today. Labor precautions. testing reassuring. Return in 1 week for routine visit. Flowsheet Date 05/30/2022 Beltran Score Blood Edema Fundus Height Fundus Units Glucose Ketones Leukocytes Nitrite Labor Signs Protein Cervic Dilation Cervic Effacement Cervic Station Type Weight in lbs Pre/Post Dialysis Refused BP Diastolic BP Location Tested BP Systolic BP Type Fetus Heart Rate Present Fetus Movement Comments Flowsheet Date 05/30/2022 Beltran Score Blood Edema Fundus Height Fundus Units Glucose Ketones Leukocytes Nitrite Labor Signs Protein Cervic Dilation Cervic Effacement Cervic Station Type Weight in lbs Pre/Post Dialysis Refused BP Diastolic BP Location Tested BP Systolic BP Type Fetus Heart Rate Present Fetus Movement Comments Flowsheet Date 05/30/2022 Beltran Score Blood Edema Fundus Height Fundus Units Glucose Ketones Leukocytes Nitrite Labor Signs Protein Cervic Dilation Cervic Effacement Cervic Station 36 2cm 50% -1 Type Weight in lbs Pre/Post Dialysis Refused Weight 150.909950072145 BP Diastolic BP Location Tested BP Systolic BP Type 65 R arm 100 sitting Fetus Heart Rate Present A 143 Fetus Movement Comments no problems, routine care Flowsheet Date 06/06/2022 Beltran Score Blood Edema Fundus Height Fundus Units Glucose Ketones Leukocytes Nitrite Labor Signs Protein Cervic Dilation Cervic Effacement Cervic Station Type Weight in lbs Pre/Post Dialysis Refused BP Diastolic BP Location Tested BP Systolic BP Type Fetus Heart Rate Present Fetus Movement Comments Flowsheet Date 06/06/2022 Beltran Score Blood Edema Fundus Height Fundus Units Glucose Ketones Leukocytes Nitrite Labor Signs Protein Cervic Dilation Cervic Effacement Cervic Station Type Weight in lbs Pre/Post Dialysis Refused BP Diastolic BP Location Tested BP Systolic BP Type Fetus Heart Rate Present Fetus Movement Comments Flowsheet Date 06/06/2022 Beltran Score Blood Edema Fundus Height Fundus Units Glucose Ketones Leukocytes Nitrite Labor Signs Protein Cervic Dilation Cervic Effacement Cervic Station neg none 36 none trace 3cm 50% -3 Type Weight in lbs Pre/Post Dialysis Refused Weight 146.108175680729 BP Diastolic BP Location Tested BP Systolic BP Type 65 R arm 99 sitting Fetus Heart Rate Present A 130 Fetus Movement A Yes Comments Doing well. Labor precaution s discussed. Pt had very little pain with her other labor. Encouraged to come in if any suspicion of labor. Flowsheet Date 06/13/2022 Beltran Score Blood Edema Fundus Height Fundus Units Glucose Ketones Leukocytes Nitrite Labor Signs Protein Cervic Dilation Cervic Effacement Cervic Station Type Weight in lbs Pre/Post Dialysis Refused BP Diastolic BP Location Tested BP Systolic BP Type Fetus Heart Rate Present Fetus Movement Comments Flowsheet Date 06/13/2022 Beltran Score Blood Edema Fundus Height Fundus Units Glucose Ketones Leukocytes Nitrite Labor Signs Protein Cervic Dilation Cervic Effacement Cervic Station Type Weight in lbs Pre/Post Dialysis Refused BP Diastolic BP Location Tested BP Systolic BP Type Fetus Heart Rate Present Fetus Movement Comments Flowsheet Date 06/13/2022 Beltran Score Blood Edema Fundus Height Fundus Units Glucose Ketones Leukocytes Nitrite Labor Signs Protein Cervic Dilation Cervic Effacement Cervic Station neg none none trace 3cm Type Weight in lbs Pre/Post Dialysis Refused Weight 148.460710309333 BP Diastolic BP Location Tested BP Systolic BP Type 65 100 Fetus Heart Rate Present Fetus Movement A Yes Comments Doing well. Occasional contr actions. Labor precautions discussed. MIL 2-20 @ 0001 Flowsheet Date 07/17/2022 Beltran Score Blood Edema Fundus Height Fundus Units Glucose Ketones Leukocytes Nitrite Labor Signs Protein Cervic Dilation Cervic Effacement Cervic Station Type Weight in lbs Pre/Post Dialysis Refused Weight 133.741918026564 BP Diastolic BP Location Tested BP Systolic BP Type 83 122 Fetus Heart Rate Present Fetus Movement Comments Menstrual History Last Menstrual Date Menses Monthly On Bcp Conception Prior Menses Frequency Hcg Plus Date Menarche Onset Age 0509/18/2021 Genetic Screening And Infection History Question Response Note Mental Retardation/Autism false Patient's Age Will Be 35 Years Or Older At Estim ated Date of Delivery false Thalassemia (Faroese, Venezuelan, Mediterranean, Or Background): MCV < 80 false Neural Tube Defect (Meningomyelocele, Spina Bifi da, Or Anencephaly) false Congenital Heart Defect false Down Syndrome false Shiva-Sachs (eg, Taoism, Cajun, Japanese-[place]) f alse Nazia Disease false Sickle Cell Disease Or Trait () false Hemophilia Or Other Blood Disorders false Muscular Dystrophy false Cystic Fibrosis false Richards's Chorea false Intellectual Disability/Autism false If Yes, Was Person Tested For Fragile X? false Other Inherited Genetic Or Chromosomal Disorder false Maternal Metabolic Disorder (eg, Type 1 Diabetes , PKU) false Patient Or Baby's Father Had A Child With Defects Not Listed Above false Recurrent Loss, Or A Stillbirth false Medications (including Suppl ements, Vitamins, Herbs, OTC Drugs), Illicit/Recreational Drugs, Alcohol false If Yes, Agent(s) And Strength/Dosage false Any Other Genetic History false Live With Someone With TB Or Exposed To TB false Patient Or Partner Has History Of Genital Herpes false Rash Or Viral Illness Since Last Menstrual Perio d false History Of STD, Gonorrhea, Chlamydia, HPV, Syphi lis false Other Infection History false History of HIV false History of Hepatitis false Prior GBS-infected child false Hemoglobinopathy Or Carrier false Other Structural Defect false Recent Travel History Outside of Country false Delivery Information Delivery Date Delivery Type Labor Anesthesia Weeks Gestation Incision Type Labor Labor Length Hrs Delivered By Post Complications Tubal Sterilization Discharge Date Comments 3 susan None 39 false Panyik, Silvana CNM Anemia Discharge Information Feeding Method Contraceptive Method Maternal HG B and HCT Levels Ob Episode Information Episode Created Date Number of Fetuses Patient Bloodtype Patient rh Status Prepregnancy Weight lbs Domestic Partner Domestic Partner Phone Father Name Metal Hanger Status 11/18/19 22 1 CLOSED Fetus Data First Name Last Name Admitted to NICU Weight (g) Sex Living Outcome Pediatric Complications Fetus ID Race Codes Race Delivery Type Ectopic [id number] Jamel Calculation Initial Jamel Date Initial Exam Date Initial Exam Provider Initial Ultrasound Date Last Menstrual Period Date Ultra Sound Weeks Gestation 0 Eighteen To Twenty Week Jamel Update Ultra Sound Date Fundal Height At Umbil Quickening Date Ultra Sound Latest Weeks Gestation Final Jamel Confirmed By Final Jamel Confirmed Date Final Jamel Date Ultra Sound Latest Days Gestation 0 0 Menstrual History Last Menstrual Date Menses Monthly On Bcp Conception Prior Menses Frequency Hcg Plus Date Menarche Onset Age Delivery Information Delivery Date Delivery Type Labor Anesthesia Weeks Gestation Incision Type Labor Labor Length Hrs Delivered By Post Complications Tubal Sterilization Discharge Date Comments 8 Discharge Information Feeding Method Contraceptive Method Maternal HG B and HCT Levels Ob Episode Information Episode Created Date Number of Fetuses Patient Bloodtype Patient rh Status Prepregnancy Weight lbs Domestic Partner Domestic Partner Phone Father Name Metal Hanger Status 11/18/19 22 1 CLOSED Fetus Data First Name Last Name Admitted to NICU Weight (g) Sex Living Outcome Pediatric Complications Fetus ID Race Codes Race Delivery Type , Induced [id number] Jamel Calculation Initial Jamel Date Initial Exam Date Initial Exam Provider Initial Ultrasound Date Last Menstrual Period Date Ultra Sound Weeks Gestation 0 Eighteen To Twenty Week Jamel Update Ultra Sound Date Fundal Height At Umbil Quickening Date Ultra Sound Latest Weeks Gestation Final Jamel Confirmed By Final Jamel Confirmed Date Final Jamel Date Ultra Sound Latest Days Gestation 0 0 Menstrual History Last Menstrual Date Menses Monthly On Bcp Conception Prior Menses Frequency Hcg Plus Date Menarche Onset Age Delivery Information Delivery Date Delivery Type Labor Anesthesia Weeks Gestation Incision Type Labor Labor Length Hrs Delivered By Post Complications Tubal Sterilization Discharge Date Comments 1 Discharge Information Feeding Method Contraceptive Method Maternal HG B and HCT Levels Ob Episode Information Episode Created Date Number of Fetuses Patient Bloodtype Patient rh Status Prepregnancy Weight lbs Domestic Partner Domestic Partner Phone Father Name Metal Hanger Status 11/18/19 22 1 CLOSED Fetus Data First Name Last Name Admitted to NICU Weight (g) Sex Living Outcome Pediatric Complications Fetus ID Race Codes Race Delivery Type [id number] F Full Term [id number] Vaginal Delivery Jamel Calculation Initial Jamel Date Initial Exam Date Initial Exam Provider Initial Ultrasound Date Last Menstrual Period Date Ultra Sound Weeks Gestation 0 Eighteen To Twenty Week Jamel Update Ultra Sound Date Fundal Height At Umbil Quickening Date Ultra Sound Latest Weeks Gestation Final Jamel Confirmed By Final Jamel Confirmed Date Final Jamel Date Ultra Sound Latest Days Gestation 0 0 Menstrual History Last Menstrual Date Menses Monthly On Bcp Conception Prior Menses Frequency Hcg Plus Date Menarche Onset Age Delivery Information Delivery Date Delivery Type Labor Anesthesia Weeks Gestation Incision Type Labor Labor Length Hrs Delivered By Post Complications Tubal Sterilization Discharge Date Comments 9 40.4 Discharge Information Feeding Method Contraceptive Method Maternal HG B and HCT Levels
--- OUTSIDE RECORDS SUMMARY | 2024-11-25 18:58 | XMS_ITS | Clinical Summary ---
Author Organization [facility] Address [address] [place] [address] Phone Care Team Providers Care Power System Electrical Engineer Name Role Phone BucioBarak Noreen HOYT Primary Care Provider [phone] Arthur Espinosa MD Unavailable [phone] Allergies No known active allergies Medications mometasone (ELOCON) 0.1 % OintmentIndicati ons:Flexural eczema Apply daily. Application Site: Bilateral elbow creases. Apply twice daily 45 g 5 Active docusate sodium (COLACE) 100 MG CapsuleIndicatio ns:Constipation, unspecified constipation type Take 1 Capsule by mouth 2 times daily. 180 Capsule 3 5 Active polyethylene glycol (GLYCOLAX, MIRALAX) 17 g PackIndications: Constipation, unspecified constipation type Take 1 Packet by mouth daily. Dissolve in 4-8 oz of liquid. 90 Packet 3 5 Active fluconazole (DIFLUCAN) 150 MG Tablet Take 1 Tablet by mouth every 3 days. 2 Tablet 5 Active ondansetron (ZOFRAN) 4 MG TabletIndication s:Nausea and Vomiting Take 1 Tablet by mouth every 8 hours as needed for Nausea - 1st line. Indications: Nausea and Vomiting 10 Tablet 5 Active dicyclomine (BENTYL) 20 MG Tablet Take 1 Tablet by mouth every 6 hours. 30 Tablet 5 Active Active Problems Problem Noted Date Diagnosed Date Chronic constipation 07/30/2023 Anxiety 07/01/2023 Encounters Date Type Department Care Team Description 11/24/2024 7:00 PM CDT - 11/24/2024 9:47 PM CDT Emergency [facility] Emergency [address] [facility] [place] [address] Joel Quispe, PAC Gastroenteritis Discharge Disposition: Discharged to home or Selfcare 11/24/2024 Travel 11/07/2024 Travel 09/27/2024 10:29 AM CDT - 09/27/2024 11:57 AM CDT Emergency [facility] Emergency [address] [place] [address] Joel Quispe, PAC Variable menstrual cycle Discharge Disposition: Discharged to home or Selfcare 09/27/2024 Travel 09/10/2024 8:40 AM CDT - 09/10/2024 10:47 AM CDT Emergency [facility] Emergency [address] [place] [address] Dano Russell MD Cystitis Discharge Disposition: Discharged to home or Selfcare 09/10/2024 Travel 09/04/2024 8:29 AM CDT - 09/04/2024 9:15 AM CDT Emergency [facility] Emergency [address] [place] [address] Bassem Powell, Dysuria Discharge Disposition: Discharged to home or Selfcare 09/04/2024 Travel from Last 3 Months Immunizations Immunization Administration Dates Next Due DTAP VACCINE 01/23/2003, 0,10/25/1999,08/17 Hepatitis A Vaccine, Pediatric/adolescent, 2 Dose Schedule 02/02/2016,01/28/2013 Hepatitis B Vaccine, Pediatric/adolescent 01/23/2003,08/18/1999,1998 Hib Vaccine,unspecified Formulation 01/19/2000,0 10/25/1999,08/18/1999 Human Papillomavirus (HPV) 9 -valent Vaccine 02/02/2016 Human Papillomavirus Vaccine (HPV), quadrivalent 01/28/2013 Inactivated Polio Vaccine 01/23/2003,,10/25/1999,08/17 Influenza Vaccine, Quadrivalent, PF 02/02/2016,1 Influenza, Injectable, Quadrivalent 04/04/2018 MMR Vaccine 01/28/2004,01/19/2000 Meningococcal Group B OMV 06/07/2016,02/02/2016 Meningococcal Vaccine 02/02/2016 TDAP Vaccine 06/19/2022,07/10/2018,01/28/2013 Varicella Vaccine Live 02/02/2016,02/10/2003 Social History Tobacco Use Types Packs/Day Years Used Date Smoking Tobacco: Never Smokeless Tobacco: Never Tobacco Cessation:Counseling Given: Not Answered Alcohol Use Standard Drinks/Week Comments Yes 0 (1 standard drink = 0.6 oz pur e alcohol) rare [facility] Utilities Answer Date Recorded In the past 12 months has th e electric, gas, oil, or water company threatened to shut off services in your home? Patient declined 07/16/2024 Social Connection and Isolation Panel Answer Date Recorded In a typical week, how many times do you talk on the phone with family, friends, or neighbors? Patient declined 07/16/2024 How often do you get togethe r with friends or relatives? Patient declined 07/16/2024 How often do you attend confucianist or yazidi serv ices? Patient declined 07/16/2024 Active Member of Clubs or Organizations Not on f ile 07/16/2024 Attends Club or Organization Meetings Not on alexandra e 07/16/2024 Marital Status Not on file 07/16/2024 AUDIT-C Answer Date Recorded Q1: How often do you have a drink containing alc ohol? Patient declined 07/16/2024 Q2: How many drinks containi ng alcohol do you have on a typical day when you are drinking? Patient declined 07/16/2024 Q3: How often do you have si x or more drinks on one occasion? Patient declined 07/16/2024 Overall Financial Resource Strain (CARDIA) Answe r Date Recorded How hard is it for you to pa y for the very basics like food, housing, medical care, and heating? Patient declined 07/16/2024 PHQ-2 Answer Date Recorded Total Score - Questions 1-9 0 06/28 [facility] of Occupat ional Health - Occupational Stress Questionnaire Answer Date Recorded Do you feel stress - tense, restless, nervous, or anxious, or unable to sleep at night because your mind is troubled all the time - these days? Patient declined 07/16/2024 Exercise Vital Sign Answer Date Recorde d On average, how many days pe r week do you engage in moderate to strenuous exercise (like a brisk walk)? Patient declined On average, how many minutes do you engage in exercise at this level? Patient declined 07/16/2024 Hunger Vital Sign Answer Date Recorded Within the past 12 months, y ou worried that your food would run out before you got the money to buy more. Patient declined Within the past 12 months, t he food you bought just didn't last and you didn't have money to get more. Patient declined PRAPARE - Transportation Answer Date Re corded In the past 12 months, has l ack of transportation kept you from medical appointments or from getting medications? Patient declined 07/16/2024 In the past 12 months, has l ack of transportation kept you from meetings, work, or from getting things needed for daily living? Patient declined 07/16/2024 Housing Stability Vital Sign Answer Memo e Recorded In the last 12 months, was t here a time when you were not able to pay the mortgage or rent on time? No 07/29/2023 In the last 12 months, how many places have you lived? 1 07/29/2023 In the last 12 months, was t here a time when you did not have a steady place to sleep or slept in a longterm (including now)? No 07/29/2023 Housing Stability Vital Sign Answer Memo e Recorded In the last 12 months, was t here a time when you were not able to pay the mortgage or rent on time? Patient declined 07/17/19 25 Number of Times Moved in the Last Year Not on fi le 07/16/2024 At any time in the past 12 m [facility], were you homeless or living in a longterm (including now)? Patient declined 07/16/2024 Sexually Active Control Partners Comments Yes None, Male Condom Male Comments No Sex and Gender Information Value Date Recorded Sex Assigned at Not on file Legal Sex Female 7:20 PM CDT Gender Identity Not on file Sexual Orientation Not on file Last Filed Vital Signs Vital Sign Reading Time Taken Comments Blood Pressure 117/71 11/24/2024 9:30 PM CDT Pulse 78 11/24/2024 9:30 PM CDT Temperature 37.2 C (98.9 F) 11/24/2024 7:04 PM CDT Respiratory Rate 16 11/24/2024 9:30 PM CDT Oxygen Saturation 100% 11/24/2024 9:30 PM CDT Inhaled Oxygen Concentration - - Weight 55.2 kg (121 lb 11.1 oz) 11/24/2024 7:04 PM CDT Height 165.1 cm (5' 5) 11/24/2024 7:04 PM CDT Body Mass Index 20.25 11/24/2024 7:04 PM CDT Plan of Treatment Health Maintenance Due Date Last Done Comments SARS-COV-2 Immunization ( season) 2023 Influenza Immunization (#1) 2024 12/0 09/2017, 02/02/2016, 01/28/2013 Pap Smear 09/02/2026 09/03/2023 DTaP/Tdap/Td Immunization (8 - Td or Tdap) 06/19/2032 06/19/2022, 07/10/2018, 01/28/2013, Additional history exists Respiratory Syncytial Virus (RSV) Immunization (Adult) (1 - 1-dose 75+ series) 2073 Hepatitis B Immunization Completed 003, 08/18/1999, 1998 Human Papillomavirus (HPV) Immunization Completed 02/02/2016, 01/28/2013 Meningococcal Immunization (ACWY) Completed 02/02/2016 Meningococcal B Immunization Discontinued 06/07/2016, 02/02/2016 Hepatitis C Virus (HCV) Screening Completed 09/03/2023 Pneumococcal Immunization Combined Aged Out No longer eligible based on patient's age to complete this topic Rotavirus Immunization Aged Out No lo nger eligible based on patient's age to complete this topic Procedures Procedure Name Priority Date/Time Associated Diagnosis Comments URINALYSIS REFLEX IF INDICATED BY ABNORMAL RESULTS STAT 11/24/2024 7:37 PM CDT MINT GREEN, LI HEPARIN/SST TOP TUBE STAT 11/24/2024 7:32 PM CDT CBC WITH AUTO DIFFERENTIAL STAT 11/24/2024 7:32 PM CDT EXTRA TUBES STAT 11/24/2024 7:32 PM CDT LIPASE STAT 11/24/2024 7:32 PM CDT CMP (COMPREHENSIVE METABOLIC PANEL) STAT 11/24/2024 7:32 PM CDT COMPLETE BLOOD COUNT (CBC) WITH DIFF STAT 11/24/2024 7:32 PM CDT CBC WITH AUTO DIFFERENTIAL STAT 09/27/2024 10:45 AM CDT HCG BETA SUBUNIT SERUM QUANT STAT 09/27/2024 10:45 AM CDT CMP (COMPREHENSIVE METABOLIC PANEL) STAT 09/27/2024 10:45 AM CDT COMPLETE BLOOD COUNT (CBC) WITH DIFF STAT 09/27/2024 10:45 AM CDT URINALYSIS REFLEX IF INDICATED BY ABNORMAL RESULTS STAT 09/27/2024 10:40 AM CDT POCT URINE HCG () STAT 09/27/2024 10:37 AM CDT URINALYSIS REFLEX IF INDICATED BY ABNORMAL RESULTS STAT 09/10/2024 9:30 AM CDT CULTURE, URINE STAT 09/10/2024 9:30 AM CDT POCT URINE HCG () STAT 09/10/2024 9:21 AM CDT URINALYSIS REFLEX IF INDICATED BY ABNORMAL RESULTS STAT 09/04/2024 8:29 AM CDT CULTURE, URINE STAT 09/04/2024 8:29 AM CDT from Last 3 Months Results * (ABNORMAL) Urinalysis w/ Reflex (11/24/2024 7:37 PM CDT) Only the most recent of4 resultswithin the time period is included. SPECIFIC GRAVITY 1.020 1.003 - 1.030 11/24/2024 8:22 PM CDT [facility] URINE PH 6.0 5.0 - 9.0 11/24/2024 8:22 PM CDT [facility] WBC ESTERASE Negative Negative 11/24/2024 8:22 PM CDT [facility] NITRITE Negative Negative 11/24/2024 8:22 PM CDT [facility] PROTEIN, RANDOM URINE 30 mg/dL(A) Negative 11/24/2024 8:22 PM CDT [facility] URINE GLUCOSE, QUAL Negative Negative 11/24/2024 8:22 PM CDT [facility] URINE KETONES 50 mg/dL(A) Negative 11/24/2024 8:22 PM CDT [facility] UROBILINOGEN Normal Normal mg/dL 11/24/2024 8:22 PM CDT [facility] URINE BLOOD Negative Negative brodie/ul 11/24/2024 8:22 PM CDT [facility] URINALYSIS COLOR Yellow 11/25/19 8:22 PM CDT [facility] URINALYSIS CLARITY Clear 11/24/2024 8:22 PM CDT [facility] WBC (Urine) 0-5 Negative, 0-5 /hpf 11/24/2024 8:22 PM CDT [facility] URINE RBC'S Negative Negative, 0-2 /hpf 11/24/2024 8:22 PM CDT [facility] EPITHELIAL CELLS Large amount squamous /lpf 11/24/2024 8:22 PM CDT [facility] BACTERIA, URINE Few(A) Negative /hpf 11/24/2024 8:22 PM CDT [facility] URINE YEAST Few Budding Yeast 11/24/2024 8:22 PM CDT [facility] Urine URINE SPECIMEN / Unknown Non-Phlebotomy Collection / Unknown 11/24/2024 7:37 PM CDT 11/24/2024 8:00 PM CDT Joel Quispe PAC URINE ORDERABLES Fin al Result Performing Organization Address City/[facility]/ZIP Co de Phone Number [facility] [address] [place] [address] * SAURAV HOLBROOK HEPARIN/SST TOP TUBE (11/24/2024 7:32 PM CDT) Blood No Phlebotomy Charged / Unknown 11/24/2024 7:32 PM CDT 11/24/2024 8:00 PM CDT Joel Quispe PAC HEMATOLOGY ORDERABLE S Final Result Performing Organization Address [facility] Co de Phone Number [facility] [address] [place] [address] * (ABNORMAL) CBC with Auto Differential (11/24/2024 7:32 PM CDT) Only the most recent of2 resultswithin the time period is included. WBC 6.21 4.00 - 12.00 10(3)/mcL 11/24/2024 8:27 PM CDT [facility] RBC 4.05 3.80 - 5.30 10(6)/mcL 11/24/2024 8:27 PM CDT [facility] HEMOGLOBIN (HGB) 8.5(L) 12.0 - 15.8 g/dL 11/24/2024 8:27 PM CDT [facility] HEMATOCRIT (HCT) 28.0(L) 36.0 - 47.0 % 11/24/2024 8:27 PM CDT [facility] MCV 69.1(L) 82.0 - 96.0 fL 11/24/2024 8:27 PM CDT [facility] MCH 21.0(L) 26.0 - 34.0 pg 11/24/2024 8:27 PM CDT [facility] MCHC 30.4(L) 31.0 - 36.0 g/dL 11/24/2024 8:27 PM CDT [facility] PLATELET COUNT 293 140 - 440 10(3)/mcL 11/24/2024 8:27 PM CDT [facility] RDW 18.8(H) 11.8 - 15.5 % 11/24/2024 8:27 PM CDT [facility] MPV 10.7 9.7 - 12.4 fL 11/24/2024 8:27 PM CDT [facility] NEUTROPHILS 63.1 47.0 - 73.0 % 11/24/2024 8:27 PM CDT [facility] LYMPHOCYTES 24.2 18.0 - 42.0 % 11/24/2024 8:27 PM CDT [facility] MONOCYTES 9.8 4.0 - 12.0 % 11/24/2024 8:27 PM CDT [facility] EOSINOPHILS 2.1 0.0 - 5.0 % 11/24/2024 8:27 PM CDT [facility] BASOPHILS 0.5 0.0 - 1.0 % 11/24/2024 8:27 PM CDT [facility] IMMATURE GRANULOCYTE 0.3 0.0 - 0.4 % 11/24/2024 8:27 PM CDT [facility] Comment:Immature Granulocyte s includes Metamyelocytes, Myelocytes, and Promyelocytes. ABSOLUTE NEUTROPHILS 3.92 1.60 - 7.70 10(3)/mcL 11/24/2024 8:27 PM CDT [facility] ABSOLUTE LYMPHOCYTES 1.50 1.30 - 3.20 10(3)/mcL 11/24/2024 8:27 PM CDT [facility] ABSOLUTE MONOCYTES 0.61 0.20 - 1.00 10(3)/mcL 11/24/2024 8:27 PM CDT [facility] ABSOLUTE EOSINOPHIL 0.13 0.00 - 0.40 10(3)/mcL 11/24/2024 8:27 PM CDT [facility] ABSOLUTE BASOPHILS 0.03 0.00 - 0.10 10(3)/mcL 11/24/2024 8:27 PM CDT [facility] ABSOLUTE IMMATURE GRANULOCYTE 0.02 0.00 - 0.03 10 (3) mcL. 11/24/2024 8:27 PM CDT [facility] NRBC PER 100 WBC 0 11/25/19 8:27 PM CDT [facility] RESULTS ARE CONSISTENT WITH PERIPHERAL SMEAR REVIEW Yes 11/24/2024 8:27 PM CDT [facility] RBC MORPHOLOGY CONSISTENT WITH INDICES Yes 11/24/2024 8:27 PM CDT [facility] POIKILOCYTOSIS 1+ 11/24/2024 8:27 PM CDT [facility] TARGET Present 11/24/2024 8:27 PM CDT [facility] ANETTE CELLS Present 11/24/2024 8:27 PM CDT [facility] TEARDROP CELLS Present 11/24/2024 8:27 PM CDT [facility] Blood Venipuncture / Unknown 11/24/2024 7:32 PM CDT 11/24/2024 8:00 PM CDT Narrative [facility] - 11/24/2024 8:27 PM CDT Microcytosis Anisocytosis us Joel Quispe PAC HEMATOLOGY ORDERABLE S Final Result [facility] [address] [place] [address] * Lipase (11/24/2024 7:32 PM CDT) LIPASE 57 8 - 78 U/L 11/24/2024 8:22 PM CDT [facility] Blood Venipuncture / Unknown 11/24/2024 7:32 PM CDT 11/24/2024 8:00 PM CDT Joel Quispe PAC CHEMISTRY ORDERABLES Final Result [facility] [address] [place] [address] * (ABNORMAL) CMP (11/24/2024 7:32 PM CDT) Only the most recent of2 resultswithin the time period is included. SODIUM 137 136 - 145 mmol/L 11/24/2024 8:22 PM CDT [facility] POTASSIUM 3.6 3.5 - 5.1 mmol/L 11/24/2024 8:22 PM CDT [facility] CHLORIDE 108(H) 98 - 107 mmol/L 11/24/2024 8:22 PM CDT [facility] CO2, VENOUS 19(L) 22 - 30 mmol/L 11/24/2024 8:22 PM CDT [facility] ANION GAP 13.6 <18.0 mmol/L 11/24/2024 8:22 PM CDT [facility] GLUCOSE 90 70 - 99 mg/dL 11/24/2024 8:22 PM CDT [facility] BUN 10 5 - 18 mg/dL 11/24/2024 8:22 PM CDT [facility] CREATININE, BLOOD 0.81 0.60 - 1.00 mg/dL 11/24/2024 8:22 PM CDT [facility] BUN/CREATININE RATIO 12 12 - 20 ratio 11/24/2024 8:22 PM CDT [facility] TOTAL PROTEIN 7.3 6.0 - 8.0 g/dL 11/24/2024 8:22 PM CDT [facility] ALBUMIN 4.2 3.5 - 5.0 g/dL 11/24/2024 8:22 PM CDT [facility] A/G RATIO 1.4 1.0 - 2.2 11/24/2024 8:22 PM CDT [facility] CALCIUM 8.6(L) 8.7 - 10.5 mg/dL 11/24/2024 8:22 PM CDT [facility] T BILI 1.0 0.2 - 1.2 mg/dL 11/24/2024 8:22 PM CDT [facility] SGOT (AST) 18 <43 U/L 11/24/2024 8:22 PM CDT [facility] SGPT (ALT) 9 <56 U/L 11/24/2024 8:22 PM CDT [facility] ALKALINE PHOSPHATASE 30(L) 40 - 150 U/L 11/24/2024 8:22 PM CDT [facility] GFR, ESTIMATED >60 >=60 11/24/2024 8:22 PM CDT [facility] Comment: Creatinine Clearance is the preferred criteria for selecting drug dose adjustments in renally impaired patients. The GFR is provided as additional pertinent clinical information. GFR is reported in mL/min/1.73 sq m. Calculation based on the Chronic Kidney Disease Epidemiology Collaboration (CKD- EPI) equation refit without adjustment for race. GFR, EST. >60 >=60 025 8:22 PM CDT [facility] GFR, EST. NONAFRICAN >60 >=60 11/24/2024 8:22 PM CDT [facility] Blood Venipuncture / Unknown 11/24/2024 7:32 PM CDT 11/24/2024 8:00 PM CDT us Joel Quispe PAC CHEMISTRY ORDERABLES Final Result [facility] [address] [place] [address] * HCG Beta Subunit Serum Quant (09/27/2024 10:45 AM CDT) HCG BETA SUBUNIT, QUANT <2.42 0.00 - 5.00 mIU/mL 09/27/2024 11:20 AM CDT [facility] Blood Venipuncture / Unknown 09/27/2024 10:45 AM CDT 09/27/2024 10:52 AM CDT Narrative [facility] - 09/27/2024 11:20 AM CDT HCG levels should be interpreted with consideration given to the patient's clinical condition. No currently available hCG test is approved by the FDA for use as a tumor marker. hCG results <5 mIU/mL are considered negative. Weeks post LMP hCG range (mIU/mL) 1 - 10 202 - 231,000 11 - 15 22,536 - 234,990 16 - 22 8,007 - 50,064 23 - 40 1,600 - 49,413 The concentration of hCG in maternal serum rises rapidly in early , hCG levels less than 25 mIU/mL do not exclude . A further sample should be tested after 48 hours if is suspected. Heterophilic antibodies present in the serum of some patients may cause a false positive result in the assay. Before making a diagnosis of malignancy based on elevated hCG, confirm results with a urine hCG. Joel HOYT CHEMISTRY ORDERABLES Final Result [facility] [address] [place] [address] * POCT Urine HCG () (09/27/2024 10:37 AM CDT) Only the most recent of2 resultswithin the time period is included. POC URINE Negative POC URINE CONTROL Refrigerating Oiler Pass Urine 09/27/2024 10:3 7 AM CDT Joel Quispe [facility] POINT OF CARE TESTIN G (MANUAL) Final Result * Culture, Urine (09/10/2024 9:30 AM CDT) Only the most recent of2 resultswithin the time period is included. CULTURE RESULTS Mixed Growth or 3 or More Organisms, Probable Collection Contamination, Suggest Repeat 09/11/2024 10:01 AM CDT [facility] Urine URINE SPECIMEN / Unknown Non-Phlebotomy Collection / Unknown 09/10/2024 9:30 AM CDT 09/10/2024 9:56 AM CDT us Dano Russell MD MICROBIOLOGY - GENERAL OR DERABLES Final Result [facility] [address] [place] [address], from Last 3 Months Care Teams Power System Electrical Engineer Relationship Specialty Start Date End Date Barak Bucio, PAC [address] [place] [address] PCP - General Physician Slate Splitting Supervisor 05/28/23 Arthur Espinosa MD [address] [address] Consulting Physician Urology 11/04/24
--- OUTSIDE RECORDS SUMMARY | 2024-11-25 18:58 | XMS_ITS | Encounter Summary ---
Author Organization [employer] Care Team Providers Care Construction Economist Name Role Phone Barak Bucio PAC Primary Care Provider [phone] Arthur Espinosa MD Unavailable [phone] Encounter Details Date Type Department Care Team (Latest Contact Info) Description 11/24/2024 Travel Social History Tobacco Use Types Packs/Day Years Used Date Smoking Tobacco: Never Smokeless Tobacco: Never Alcohol Use Standard Drinks/Week Comments Yes 0 (1 standard drink = 0.6 oz pur e alcohol) rare [facility] Utilities Answer Date Recorded In the past 12 months has [employer] electric, gas, oil, or water company threatened [...] declined 07/16/2024 How often do you attend christianity or cheondoism serv ices? Patient declined 07/16/2024 Active Member [...] Total Score - Questions 1-9 0 06/28 [facility] of Occupat ional Health - Occupational Stress [...] place to sleep or slept in a mcc (including now)? No 07/29/2023 Housing Stability Vital Sign Answer Memo e Recorded In the last 12 months, was t here a time when you were not able to pay the mortgage or rent on time? Patient declined 07/17/19 25 Number of Times Moved in the Last Year Not on fi le 07/16/2024 At any time in the past 12 m [facility], were you homeless or living in a mcc (including now)? Patient declined 07/16/2024 Sexually Active Control Partners Comments Yes None, Male Condom Male Comments No Sex and Gender Information Value Date Recorded Sex Assigned at Not on file Legal Sex Female 7:20 PM CDT Gender Identity Not on file Sexual Orientation Not on file documented as of this encounter Plan of Treatment Not on file documented as of this encounter Visit Diagnoses Not on filedocumented in this encounter Additional Health Concerns Assessment Noted Time PHQ-9 Depression Total Score: 0 07/17/19 1:21 PM CDT documented as of this encounter Care Teams Construction Economist Relationship Specialty Start Date End Date Barak Bucio, EVELINA [address] [place] [id number] PCP - General Physician City Planning Teacher 05/28/23 Arthur Espinosa MD [address] [address] Consulting Physician Urology 11/04/24 documented as of this encounter
--- OUTSIDE RECORDS SUMMARY | 2024-11-25 18:58 | XMS_ITS | Encounter Summary ---
Author Organization [facility] Address [address] [place] [address] Phone Care Team Providers Care Fish Hatchery Worker Name Role Phone Barak Bucio PAC Primary Care Provider + [phone] Arthur Espinosa MD Unavailable [phone] Reason for Visit * Reason Comments Abdominal Pain Diarrhea Encounter Details Date Type Department Care Team (Late st Contact Info) Description 11/24/2024 7:00 PM CDT - 11/24/2024 9:47 PM CDT Emergency [facility] Emergency [address] [place] [address] Joel Quispe, PAC [address] [place] [address] Gastroenteritis Discharge Disposition: Discharged to home or Selfcare Social History Tobacco Use Types Packs/Day Years Used Date Smoking Tobacco: Never Smokeless Tobacco: Never Alcohol Use Standard Drinks/Week Comments Yes 0 (1 standard drink = 0.6 oz pur e alcohol) rare [facility] Utilities Answer Date Recorded In the past 12 months has [employer], gas, oil, or water company threatened to [...] declined 07/16/2024 How often do you attend restoration or druze serv ices? Patient declined 07/16/2024 Active Member [...] Total Score - Questions 1-9 0 06/28 [facility] - Occupational Stress Questionnaire Answer Date Recorded [...] place to sleep or slept in a [place] facility (including now)? No 07/29/2023 Housing Stability Vital Sign Answer Memo e Recorded In the last 12 months, was t here a time when you were not able to pay the mortgage or rent on time? Patient declined 07/17/19 25 Number of Times Moved in the Last Year Not on fi le 07/16/2024 At any time in the past 12 m [facility], were you homeless or living in a [place] facility (including now)? Patient declined 07/16/2024 Sexually Active Control Partners Comments Yes None, Male Condom Male Comments No Sex and Gender Information Value Date Recorded Sex Assigned at Not on file Legal Sex Female 7:20 PM CDT Gender Identity Not on file Sexual Orientation Not on file documented as of this encounter Last Filed Vital Signs Vital Sign Reading [...] Mass Index 20.25 11/24/2024 7:04 PM CDT documented in this encounter Medications at Time of Discharge dicyclomine (BENTYL) 20 MG Tablet Take 1 Tablet by mouth every 6 hours. 30 Tablet 11/24/2024 docusate sodium (COLACE) 100 MG CapsuleIndications :Constipation, unspecified constipation type Take 1 Capsule by mouth 2 times daily. 180 Capsule 3 07/16/2024 fluconazole (DIFLUCAN) 150 MG Tablet Take 1 Tablet by mouth every 3 days. 2 Tablet 09/10/2024 mometasone (ELOCON) 0.1 % OintmentIndication s:Flexural eczema Apply daily. Application Site: Bilateral elbow creases. Apply twice daily 45 g 07/16/2024 ondansetron (ZOFRAN) 4 MG TabletIndications: Nausea and Vomiting Take 1 Tablet by mouth every 8 hours as needed for Nausea - 1st line. Indications: Nausea and Vomiting 10 Tablet 11/24/2024 polyethylene glycol (GLYCOLAX, MIRALAX) 17 g PackIndications:Co nstipation, unspecified constipation type Take 1 Packet by mouth daily. Dissolve in 4-8 oz of liquid. 90 Packet 3 07/16/2024 documented as of this encounter ED Notes * Salome Barr RN - 11/24/2024 9:45 PM CDT Patient ready for discharge. Discharge instructions reviewed with patient at bedside; patient verbalizes understanding. Patient instructed on follow up care recommendations, all prescribed medications reviewed. Patient is alert and oriented, ambulatory without issue at time of discharge. No additional needs noted. * Salome Barr RN - 11/24/2024 9:30 PM CDT ERP at bedside. * Salome Barr RN - 11/24/2024 7:38 PM CDT Patient updated on plan of care and aware of estimated wait times for lab processing. All personal belongings and call light left within reach. Patient provided with warm blanket per request. * Salome Barr RN - 11/24/2024 7:33 PM CDT Patient ambulatory to restroom for urine specimen. * Salome Barr RN - 11/24/2024 7:15 PM CDT Patient resting on stretcher bed, conversing on phone upon entrance into patient room. Patient states she had been having episodes of diarrhea about every 30 minutes yesterday and today with abdominal pain, but denies any pain at this time, denies any symptoms. Patient is alert and oriented, able to answer all questions appropriately. * Salome Barr RN - 11/24/2024 7:13 PM CDT Registration at bedside. * Michelle Caldera RN - 11/24/2024 7:05 PM CDT Pt ambulatory to ED with complaints of abdominal pain, diarrhea, and generalized body aches for thepast 2 days. Pt also reports urinary pain. Denies N/V. VSS. documented in this encounter Miscellaneous Notes * PatientPass Patient Instructions - Joel Quispe, PAC - 11/24/2024 9:18 PM CDT Images from the original note were not included. Patient Education Table of Contents Diarrhea, Adult To view videos and all your education online visit, [email or web address] or scan this QR code with your smartphone. Access to this content will in one year. Diarrhea, Adult Diarrhea is when you pass loose and sometimes watery poop (stool) often. Diarrhea can make you feelweak and cause you to lose water in your body (get dehydrated). Losing water in your body can causeyou to: Feel tired and thirsty. Have a dry mouth. Go pee (urinate) less often. Diarrhea often lasts 2?3 days. It can last longer if it is a sign of something more serious. Be sure to treat your diarrhea as told by your doctor. Follow these instructions at home: Eating and drinking Follow these instructions as told by your doctor: Take an ORS (oral rehydration solution). This is a drink that helps you replace fluids and mineralsyour body lost. It is sold at pharmacies and stores. Drink enough fluid to keep your pee (urine) pale yellow. ? Drink fluids such as: ? Water. You can also get fluids by sucking on ice chips. ? Diluted fruit juice. ? Low-calorie sports drinks. ? Milk. ? Avoid drinking fluids that have a lot of sugar or caffeine in them. These include soda, energy drinks, and regular sports drinks. ? Avoid alcohol. Eat bland, kdvq-jq-rxcalv foods in small amounts as you are able. These foods include: ? Bananas. ? Applesauce. ? Rice. ? Low-fat (lean) meats. ? [place]. ? Crackers. Avoid spicy or fatty foods. Medicines Take uoxe-rwx-rlxesjx and prescription medicines only as told by your doctor. If you were prescribed antibiotics, take them as told by your doctor. Do not stop taking them even if you start to feel better. General instructions Wash your hands often using soap and water for 20 seconds. If soap and water are not available, usehand air support control officer. Others in your home should wash their hands as well. Wash your hands: ? After using the toilet or changing a diaper. ? Before preparing, cooking, or serving food. ? While caring for a sick person. ? While visiting someone in a hospital. Rest at home while you get better. Take a warm bath to help with any burning or pain from having diarrhea. Watch your condition for any changes. Contact a doctor if: You have a fever. Your diarrhea gets worse. You have new symptoms. You vomit every time you eat or drink. You feel light-headed, dizzy, or you have a headache. You have muscle cramps. You have signs of losing too much water in your body, such as: ? Dark pee, very little pee, or no pee. ? Cracked lips. ? Dry mouth. ? Sunken eyes. ? Sleepiness. ? Weakness. You have bloody or black poop or poop that looks like tar. You have very bad pain, cramping, or bloating in your belly (abdomen). Your skin feels cold and clammy. You feel confused. Get help right away if: You have chest pain. Your heart is beating very quickly. You have trouble breathing or you are breathing very quickly. You feel very weak or you faint. These symptoms may be an emergency. Get help right away. Call 911. Do not wait to see if the symptoms will go away. Do not drive yourself to the hospital. This information is not intended to replace advice given to you by your health care provider. Make sure you discuss any questions you have with your health care provider. Document Released: 2008-10-02 Document Updated: 2022-10-03 Document Reviewed: 2022-10-03 [employer] Patient Education ? 2024 [employer]. documented in this encounter Plan of Treatment Not on file documented as of this encounter Procedures Procedure Name Priority Date/Time Associated Diagnosis Comments URINALYSIS REFLEX IF INDICATED BY ABNORMAL RESULTS STAT 11/24/2024 7:37 PM CDT EXTRA TUBES STAT 11/24/2024 7:32 PM CDT SAURAV HOLBROOK HEPARIN/SST TOP TUBE STAT 11/24/2024 7:32 PM CDT CBC WITH AUTO DIFFERENTIAL STAT 11/24/2024 7:32 PM CDT LIPASE STAT 11/24/2024 7:32 PM CDT CMP (COMPREHENSIVE METABOLIC PANEL) STAT 11/24/2024 7:32 PM CDT COMPLETE BLOOD COUNT (CBC) WITH DIFF STAT 11/24/2024 7:32 PM CDT documented in this encounter Results * (ABNORMAL) Urinalysis w/ Reflex (11/24/2024 7:37 PM CDT) SPECIFIC GRAVITY 1.020 1.003 - 1.030 11/24/2024 8:22 PM CDT [facility] URINE PH 6.0 5.0 - 9.0 11/24/2024 8:22 PM CDT [facility] WBC ESTERASE Negative Negative 11/24/2024 8:22 PM CDT [facility] NITRITE Negative Negative 11/24/2024 8:22 PM CDT [facility] PROTEIN, RANDOM URINE 30 mg/dL(A) Negative 11/24/2024 8:22 PM CDT [facility] URINE GLUCOSE, QUAL Negative Negative 11/24/2024 8:22 PM CDT [facility] URINE KETONES 50 mg/dL(A) Negative 11/24/2024 8:22 PM CDT [facility] UROBILINOGEN Normal Normal mg/dL 11/24/2024 8:22 PM CDT [facility] URINE BLOOD Negative Negative brodie/ul 11/24/2024 8:22 PM CDT [facility] URINALYSIS COLOR Yellow 11/25/19 8:22 PM CDT [facility] URINALYSIS CLARITY Clear 11/24/2024 8:22 PM CDT [facility] WBC (Urine) 0-5 Negative, 0-5 /hpf 11/24/2024 8:22 PM CDT [facility] URINE RBC'S Negative Negative, 0-2 /hpf 11/24/2024 8:22 PM CDT [facility] EPITHELIAL CELLS Large amount squamous /lpf 11/24/2024 8:22 PM CDT [facility] BACTERIA, URINE Few(A) Negative /hpf 11/24/2024 8:22 PM CDT [facility] URINE YEAST Few Budding Yeast 11/24/2024 8:22 PM CDT [facility] Urine URINE SPECIMEN / Unknown Non-Phlebotomy Collection / Unknown 11/24/2024 7:37 PM CDT 11/24/2024 8:00 PM CDT Joel Quispe PAC URINE ORDERABLES Fin al Result [facility] [address] [place] [address] * SAURAV HOLBROOK HEPARIN/SST TOP TUBE (11/24/2024 7:32 PM CDT) Blood No Phlebotomy Charged / Unknown 11/24/2024 7:32 PM CDT 11/24/2024 8:00 PM CDT us Joel Juan A Quispe PAC HEMATOLOGY ORDERABLE S Final Result Performing Organization Address City/[facility]/ZIP Co de Phone Number [facility] [address] [place] [address] * (ABNORMAL) CBC with Auto Differential (11/24/2024 7:32 PM CDT) WBC 6.21 4.00 - 12.00 10(3)/mcL 11/24/2024 [...] - 96.0 fL 11/24/2024 8:27 PM CDT [facility] MCH 21.0(L) 26.0 - 34.0 pg 11/24/2024 8:27 PM CDT [facility] MCHC 30.4(L) 31.0 - 36.0 g/dL 11/24/2024 8:27 PM CDT [facility] PLATELET COUNT 293 140 - 440 10(3)/mcL 11/24/2024 8:27 PM CDT [facility] RDW 18.8(H) 11.8 - 15.5 % 11/24/2024 8:27 PM CDT [facility] MPV 10.7 9.7 - 12.4 fL 11/24/2024 8:27 PM CDT [facility] NEUTROPHILS 63.1 47.0 - 73.0 % 11/24/2024 8:27 PM CDT [facility] LYMPHOCYTES 24.2 18.0 - 42.0 % 11/24/2024 8:27 PM CDT [facility] MONOCYTES 9.8 4.0 - 12.0 % 11/24/2024 8:27 PM CDT [facility] EOSINOPHILS 2.1 0.0 - 5.0 % 11/24/2024 8:27 PM CDT [facility] BASOPHILS 0.5 0.0 - 1.0 % 11/24/2024 8:27 PM CDT [facility] IMMATURE GRANULOCYTE 0.3 0.0 - 0.4 % 11/24/2024 8:27 PM CDT [facility] Comment:Immature Granulocyte s includes Metamyelocytes, Myelocytes, and Promyelocytes. ABSOLUTE NEUTROPHILS 3.92 1.60 - 7.70 10(3)/mcL 11/24/2024 8:27 PM CDT [facility] ABSOLUTE LYMPHOCYTES 1.50 1.30 - 3.20 10(3)/mcL 11/24/2024 8:27 PM CDT [facility] ABSOLUTE MONOCYTES 0.61 0.20 - 1.00 10(3)/mcL 11/24/2024 8:27 PM CDT [facility] ABSOLUTE EOSINOPHIL 0.13 0.00 - 0.40 10(3)/mcL 11/24/2024 8:27 PM CDT [facility] ABSOLUTE BASOPHILS 0.03 0.00 - 0.10 10(3)/mcL 11/24/2024 8:27 PM CDT [facility] ABSOLUTE IMMATURE GRANULOCYTE 0.02 0.00 - 0.03 10 (3) mcL. 11/24/2024 8:27 PM CDT [facility] NRBC PER 100 WBC 0 11/25/19 8:27 PM CDT [facility] RESULTS ARE CONSISTENT WITH PERIPHERAL SMEAR REVIEW Yes 11/24/2024 8:27 PM CDT [facility] RBC MORPHOLOGY CONSISTENT WITH INDICES Yes 11/24/2024 8:27 PM CDT [facility] POIKILOCYTOSIS 1+ 11/24/2024 8:27 PM CDT [facility] TARGET Present 11/24/2024 8:27 PM CDT [facility] ANETTE CELLS Present 11/24/2024 8:27 PM CDT [facility] TEARDROP CELLS Present 11/24/2024 8:27 PM CDT [facility] Blood Venipuncture / Unknown 11/24/2024 7:32 PM CDT 11/24/2024 8:00 PM CDT Narrative [facility] - 11/24/2024 8:27 PM CDT Microcytosis Anisocytosis Joel Quispe PAC HEMATOLOGY ORDERABLE S Final Result [facility] [address] [place] [address] * Lipase (11/24/2024 7:32 PM CDT) LIPASE 57 8 - 78 U/L 11/24/2024 8:22 PM CDT [facility] Blood Venipuncture / Unknown 11/24/2024 7:32 PM CDT 11/24/2024 8:00 PM CDT Joel Quispe PAC CHEMISTRY ORDERABLES Final Result [facility] [address] [place] [address] * (ABNORMAL) CMP (11/24/2024 7:32 PM CDT) SODIUM 137 136 - 145 mmol/L 11/24/2024 8:22 PM CDT [facility] POTASSIUM 3.6 3.5 - 5.1 mmol/L 11/24/2024 8:22 PM CDT [facility] CHLORIDE 108(H) 98 - 107 mmol/L 11/24/2024 8:22 PM CDT [facility] CO2, VENOUS 19(L) 22 - 30 mmol/L 11/24/2024 8:22 PM CDT [facility] ANION GAP 13.6 <18.0 mmol/L 11/24/2024 8:22 PM CDT [facility] GLUCOSE 90 70 - 99 mg/dL 11/24/2024 8:22 PM CDT [facility] BUN 10 5 - 18 mg/dL 11/24/2024 8:22 PM CDT [facility] CREATININE, BLOOD 0.81 0.60 - 1.00 mg/dL 11/24/2024 8:22 PM CDT [facility] BUN/CREATININE RATIO 12 12 - 20 ratio 11/24/2024 8:22 PM CDT [facility] TOTAL PROTEIN 7.3 6.0 - 8.0 [...] 18 <43 U/L 11/24/2024 8:22 PM CDT [facility] SGPT (ALT) 9 <56 U/L 11/24/2024 8:22 PM CDT [facility] ALKALINE PHOSPHATASE 30(L) 40 - 150 U/L 11/24/2024 8:22 PM CDT [facility] GFR, ESTIMATED >60 >=60 11/24/2024 8:22 PM CDT [facility] Comment: Creatinine Clearance is the preferred criteria for selecting drug dose adjustments in renally impaired patients. The GFR is provided as additional pertinent clinical information. GFR is reported in mL/min/1.73 sq m. Calculation based on the Chronic Kidney Disease Epidemiology Collaboration (CKD- EPI) equation refit without adjustment for race. GFR, EST. >60 >=60 025 8:22 PM CDT [facility] GFR, EST. NONAFRICAN >60 >=60 11/24/2024 8:22 PM CDT [facility] Blood Venipuncture / Unknown 11/24/2024 7:32 PM CDT 11/24/2024 8:00 PM CDT Joel Quispe PAC CHEMISTRY ORDERABLES Final Result Performing Organization Address City/State/[facility] Co de Phone Number [facility] [address] [place] [address] documented in this encounter Visit Diagnoses Diagnosis Gastroenteritis- Primary Other and unspecified noninfectious gastroenteritis and colitis Chronic anemia Anemia, unspecified documented in this encounter Additional Health Concerns Assessment Noted Time PHQ-9 Depression Total Score: 0 07/17/19 25 1:21 PM CDT documented as of this encounter Care Teams Fish Hatchery Worker Relationship Specialty Start Date End Date Barak Bucio, PAC [address] [place] [id number] PCP - General Physician Car Sweeper 05/28/23 Arthur Espinosa MD [address] [address] Consulting Physician Urology 11/04/24 documented as of this encounter
--- OUTSIDE RECORDS SUMMARY | 2024-11-25 18:58 | XMS_ITS | Data Portability ---
[facility] [address] [facility] [place] [address] Care Team Providers Care Server Developer Name Role Phone SONIDO RODRIGUES Reinforced Ironworker Assessment No assessment recorded. Plan of Treatment Reminders Order Date Submit Date Provider Last Modified By Organization Details Last Modified Time Details Appointments None recorded. Lab urinalysis, dipstick 2020 021 [email or web address] 23 In-Office Order, Internal Use Only DO Not Attach Compendium DO Not Attach Compendium, Do Not Delete/merge, [id number] 1 14:33:15 pap, IG + CT/NG/TV 2019 020 [facility], [address] [place] [address], [address], 0 12:36:17 HIV 1+2 AB + HIV 1 p24 Ag, qualitative immunoassay , serum 2019 020 [facility], [address] [place] [address], [address], 0 06:37:29 HBsAg (hepatitis B surface Ag), EIA, serum 2019 020 [facility], [address] [place] [address], [place], [address], 0 06:37:30 RPR (rapid plasma reagin), serum 2019 020 [facility], [address] [place] [address], [place], [address], 0 06:37:28 hepatitis C Ab, signal-to-c utoff, serum or plasma 2019 020 [facility], [address] [facility], [facility] [address], [place], [address], 0 06:37:29 Referral None recorded. Procedures None recorded. Surgeries None recorded. Imaging None recorded. Medication Orders Xulane 150 mcg-35 mcg/24 hr transdermal patch 2018 019 [email or web address] 0 [id number], [address], [place], [id number], 0 12:11:09 Sprintec (28) 0.25 mg-0.035 mg tablet 2018 019 [email or web address] [id number], [address], [place], [id number], 9 14:35:33 Patient TargetsNo targets recorded. Patient Instructions Encounter Date Encounter Id Patient Instructions Last Modified By Organization Details Last Modified Time 11/16/2020 [id number] frequent urination: care instructions [email or web address] Not available 11/16/2020 14:33:15 Reason for Referral None Reported. Results Created Date Observation Date Name Description Value Unit Range Abnormal Flag Note LastModifiedBy Organization Detail LastModifiedTime 03/23/2003/24/2020 RPR (rapi d plasm a reagi n), serum RPR Non Reacti ve non reacti ve Not Available [facility] ([facility]) [address], [place], [place], [address], 03/24/2020 06:37:28 03/23/20 20 03/24/2020 HIV 1+2 AB + HIV 1 p24 Ag, quali tativ e immun oassa y, serum HIV screen 4TH generation wrfx Non Reacti ve non reacti ve Not Available [facility] ([facility]) [address], [place], [place], [address], 03/24/2020 06:37:29 03/23/2003/24/2020 hepat itis C Ab, signa l-to- cutof f, serum or plasm a HCV Ab <0.1 s/co_ ratio 0.0-0. 9 Not Available [facility] ([facility]) [address], [place], [place], [address], 03/24/2020 06:37:29 03/23/2003/24/2020 hepat itis C Ab, signa l-to- cutof f, serum or plasm a comment: Commen t Non react batsheva HCV antib cayetano scree n is consi stent with no HCV infec tion, unles s recen t infec tion is suspe cted or other evide nce exist s to indic ate HCV infec tion. Not Available [facility] ([facility]) [address], [place], [place], [address], 03/24/2020 06:37:29 03/23/2003/24/2020 HBsAg (hepa titis B surfa ce Ag), EIA, serum HBsAg screen Negati ve negati ve Not Available [facility] ([facility]) [address] [place], [address], 03/24/2020 06:37:30 03/23/2003/24/2020 pap, IG + CT/NG /TV chlamydia, nuc. acid amp Negati ve negati ve Not Available [facility] ([facility]) [address] [place], [address], 03/29/2020 12:36:17 03/23/2003/24/2020 pap, IG + CT/NG /TV gonococcus, nuc. acid amp Negati ve negati ve Not Available [facility] ([facility]) [address] [place], [address], 03/29/2020 12:36:17 03/23/20 03/24/2020 pap, IG + CT/NG /TV trich vag by YULISSA Negati ve negati ve Not Available [facility] ([facility]) [address] [place], [address], 03/29/2020 12:36:17 03/23/20 20 03/29/2020 pap, IG + CT/NG /TV diagnosis: Commen t abnormal EPITH ELIAL CELL ABNOR MALIT Y. LOW GRADE SQUAM OUS INTRA EPITH ELIAL LESIO N (LSIL ). FUNGA L ORGAN ISMS MORPH OLOGI SHILPA CONSI STENT WITH EVARISTO DA SPECI ES ARE PRESE NT. Not Available [facility] ([facility]) [address] [place], [address], 03/29/2020 12:36:17 03/23/20 20 03/29/2020 pap, IG + CT/NG /TV recommendati on: Commen t abnormal Sugge st follo w up as clini shilpa appro priat e. Not Available [facility] ([facility]) [address], [place], [place], [address], 03/29/2020 12:36:17 03/23/20 20 03/29/2020 pap, IG + CT/NG /TV specimen adequacy: Commen t Satis facto ry for evalu ation . Endoc ervic al and/o r squam ous metap lasti c cells (endo cervi roge compo nent) are prese nt. Not Available [facility] ([facility]) [address], [place], [place], [address], 03/29/2020 12:36:17 03/23/20 20 03/29/2020 pap, IG + CT/NG /TV clinician provided ICD10: Harvey floyd Z01.4 19 Not Available [facility] ([facility]) [address] [place], [address], 03/29/2020 12:36:17 03/23/20 20 03/29/2020 pap, IG + CT/NG /TV performed by: Commen t Bridg et Harmo n, Cytot echno logis t (ASCP ) Not Available [facility] ([facility]) [address] [place], [address], 03/29/2020 12:36:17 03/23/20 20 03/29/2020 pap, IG + CT/NG /TV electronical ly signed by: Harvey hernandez MD, Patho logis t Not Available [facility] ([facility]) [address] [place], [address], 03/29/2020 12:36:17 03/23/20 20 03/29/2020 pap, IG + CT/NG /TV . . Not Available [facility] ([facility]) [address] [place], [address], 03/29/2020 12:36:17 03/23/20 20 03/29/2020 pap, IG + CT/NG /TV pathologist provided ICD10: Harvey floyd R87.6 12, R87.5 Not Available [facility] ([facility]) [address] [place], [address], 03/29/2020 12:36:17 03/23/20 20 03/29/2020 pap, IG + CT/NG /TV note: Harvey floyd The Pap smear is a scree jo ann test desig tanika to aid in the detec tion of guido ligna nt and malig nant condi tions of the uteri ne cervi x. It is not a diagn ostic proce dure and shoul d not be used as the sole means of detec ting cervi roge cance r. Both false -posi tive and false -nega tive repor ts do occur . Not Available [facility] ([facility]) [address] [place], [address], 03/29/2020 12:36:17 03/23/20 20 03/29/2020 pap, IG + CT/NG /TV test methodology: Commen t This liqui d based ThinP rep(R ) pap test was scree tanika with the use of an image guide pritesh zafar Not Available [facility] ([facility]) [address], [place], [place], [address], 03/29/2020 12:36:17 11/17/19 21 11/16/2020 urina lysis , dipst ick Leukocytes Negati ve Not Available In-Office Order Internal Use Only DO Not Attach Compendium DO Not Attach Compendium, Do Not Delete/merge, 11/16/2020 14:30:18 11/17/19 21 11/16/2020 urina lysis , dipst ick Nitrite negati ve Not Available In-Office Order Internal Use Only DO Not Attach Compendium DO Not Attach Compendium, Do Not Delete/merge, 11/16/2020 14:30:18 11/17/19 21 11/16/2020 urina lysis , dipst ick Urobilinogen .2 Not Available In-Of fice Order Internal Use Only DO Not Attach Compendium DO Not Attach Compendium, Do Not Delete/merge, 11/16/2020 14:30:18 11/17/19 21 11/16/2020 urina lysis , dipst ick Protein Negati ve Not Available In-Office Order Internal Use Only DO Not Attach Compendium DO Not Attach Compendium, Do Not Delete/merge, 11/16/2020 14:30:18 11/17/19 21 11/16/2020 urina lysis , dipst ick pH 5.0 Not Available In-Office Order Internal Use Only DO Not Attach Compendium DO Not Attach Compendium, Do Not Delete/merge, 11/16/2020 14:30:18 11/17/19 21 11/16/2020 urina lysis , dipst ick Blood Negati ve Not Available In-Office Order Internal Use Only DO Not Attach Compendium DO Not Attach Compendium, Do Not Delete/merge, 11/16/2020 14:30:18 11/17/19 21 11/16/2020 urina lysis , dipst ick Specific Rickman 1.025 Not Available In-Off ice Order Internal Use Only DO Not Attach Compendium DO Not Attach Compendium, Do Not Delete/merge, [facility] 11/16/2020 14:30:18 11/17/19 21 11/16/2020 urina lysis , dipst ick Ketone Trace Not Available In-Office Order Internal Use Only DO Not Attach Compendium DO Not Attach Compendium, Do Not Delete/merge, [facility] 11/16/2020 14:30:18 11/17/19 21 11/16/2020 urina lysis , dipst ick Bilirubin Negati ve Not Available In-Office Order Internal Use Only DO Not Attach Compendium DO Not Attach Compendium, Do Not Delete/merge, [facility] 11/16/2020 14:30:18 11/17/19 21 11/16/2020 urina lysis , dipst ick Glucose Negati ve Not Available In-Office Order Internal Use Only DO Not Attach Compendium DO Not Attach Compendium, Do Not Delete/merge, [facility] 11/16/2020 14:30:18 11/17/19 21 11/16/2020 urina lysis , dipst ick Appearance Clear Not Available In-Offi ce Order Internal Use Only DO Not Attach Compendium DO Not Attach Compendium, Do Not Delete/merge, [facility] 11/16/2020 14:30:18 11/17/19 21 11/16/2020 urina lysis , dipst ick Color Pend [place] Not Available In-Office Order Internal Use Only DO Not Attach Compendium DO Not Attach Compendium, Do Not Delete/merge, [facility] 11/16/2020 14:30:18 Result Notes None recorded. Problems Name Problem SNOMED Code Status Onset Date Resolution Date Notes Provider Name and Address Organization Details Recorded Time growth restriction 23095792 Completed <3rd %ile -->N ST 2x/wk and BPP Q wk. 14th %ile . D/C NSTs/A FIs Mike Grande RN null, [place] - [place] 9 15:06:16 Chlamydial infection 974374689 Active Jyoti Kim, FLAT SCREEN WORKER-TIMMY Attn: [facility],[address] [place], [address], [place] - [place] 6 12:02:03 Candidiasis of skin 31466723 Active TRANG Barajas-TIMMY Attn: [facility],[address], [place], [address], [place] - [place] 6 12:02:03 Bacterial vaginosis 913272497 Active Gaviota Mak MA null, [place] - [place] 6 10:24:45 86492926 Completed 201707/23/2017 Mike Grande RN null, [place] - [place] 9 15:06:19 [id number] Completed 201710/15/2018 Mike Grande RN null, [place] 9 15:06:19 Problem Notes None recorded. Procedures Surgical History Date Name Laterality Status Provider Name and Address Organization Details Recorded Time 0 Date of Last Pap Smear completed Shantell Lyn [place] - [place] 03/30/2020 11:19:26 9 Depo Injection completed Shantell Lyn [place] 11/12/2018 16:30:42 8 excision of fallopian tube and surgical removal of ectopic completed Shantell Lyn [place] - [place] 02/07/2018 10:16:38 6 Control Implant Insertion completed Contreras Nieto [place] - [place] 05/18/2015 09:23:03 Imaging Results None recorded. Procedure Notes None recorded. Medical Equipment None Reported. Allergies No known drug allergies Medications Name Sig Start Date Stop Date Status Note LastModified by Organization Details LastModified Time prednison e tab 20mgpredn isone active Not Available Not Available Not Available fluconazo le tab 150mgfluc onazole active Not Available Not Available Not Available ranitidin e tab 150mgrani tidine hcl active Not Available Not Available Not Available metronida zol tab 500mgmetr onidazole active Not Available Not Available No t Available medroxypr ac inj 150mg/mlm edroxypro gesterone acetate active Not Available Not Available Not Available azithromy aric tab 500mgazit hromycin active Not Available Not Available Not Available cetirizin e tab 10mgcetir izine hcl active Not Available Not Available No t Available fluconazo le 150 mg tabs active Not Available Not Available Not Available medroxypr ogesteron e acetate 150 mg/ml susp active Not Available Not Available Not Available condoms mis lubricatp remium condoms lubricate d 11/02 completed Not Available Not Available Not Available cyclobenz aprine 10 mg tablet TAKE 1 TABLET BY MOUTH TWICE DAILY NEEDED FOR MUSCLE SPASMS. 11/16 completed Not Available Not Available Not Available Vitamin B-6 25 mg tablet 08/13 completed Not Available Not Available Not Available naproxen 375 mg tablet TAKE 1 TABLET BY MOUTH TWICE DAILY NEEDED FOR PAIN AND SWELLING . TAKE WITH MEALS. 11/16 completed Not Available Not Available Not Available cetirizin e 10 mg tablet active Not Available Not Available Not Available fluconazo le 150 mg tablet 1 PO 02/07 completed Not Available Not Available Not Available hydrocodo ne 5 mg-acetam inophen 325 mg tablet 02/07 completed Not Available Not Available Not Available metronida zole 0.75 % (37.5 mg/5 gram) vaginal gel Insert 1 applicat orful every day by vaginal route at bedtime for 7 days. 04/04 completed Not Available Not Available Not Available prednison e 20 mg tablet active Not Available Not Available Not Available ceftriaxo ne 250 mg solution for injection Take 250 mg by injectio n route. 02/07 completed Not Available Not Available Not Available metronida zole 500 mg tablet TAKE 1 TABLET BY MOUTH TWICE DAILY FOR 7 DAYS 11/16 completed Not Available Not Available Not Available ciproflox acin 500 mg tablet 03/23 completed Not Available Not Available Not Available Condoms-P rem Lubricate d Take 1 device by miscell. route. 11/02 completed Not Available Not Available Not Available Gentak 0.3 % (3 mg/gram) eye ointment 02/07 completed Not Available Not Available Not Available DOK 100 mg capsule Take 1 capsule twice a day by oral route as needed. 11/12 completed Not Available Not Available Not Available cephalexi n 500 mg capsule TAKE 1 CAPSULE BY MOUTH EVERY 12 HOURS FOR 5 DAYS 11/16 completed Not Available Not Available Not Available erythromy aric 5 mg/gram (0.5 %) eye ointment 02/07 completed Not Available Not Available Not Available ferrous sulfate 325 mg (65 mg iron) tablet Take 1 tablet twice a day by oral route for 30 days. 11/12 completed Not Available Not Available Not Available ranitidin e 150 mg tablet active Not Available Not Available Not Available acetamino phen 300 mg-codein e 60 mg tablet 02/07 completed Not Available Not Available Not Available ibuprofen 600 mg tablet TAKE 1 TABLET BY MOUTH EVERY 6 HOURS NEEDED FOR PAIN 11/16 completed Not Available Not Available Not Available ondansetr on 4 mg disintegr ating tablet DISSOLVE ONE TABLET BY MOUTH EVERY 8 HOURS NEEDED FOR NAUSEA 1ST LINE 11/16 completed Not Available Not Available Not Available medroxypr ogesteron e 150 mg/mL intramusc ular suspensio n 03/23 completed Not Available Not Available Not Available azithromy aric 1 gram oral packet Take 1 g by oral route for 1 day. 2014 active TOLD PATIENT TO RETURN MAKE APPOINTM ENT FOR SILVERIO, APPOINTM ENT MADE. Not Available Not Available Not Available neomycin 3.5 mg/g-poly myxin B 10,000 unit/g-de xameth 0.1 % eye oint 11/02 completed Not Available Not Available Not Available Vitamin 27 mg iron-0.8 mg tablet Take 1 tablet every day by oral route. 11/12 completed Not Available Not Available Not Available azithromy aric 500 mg tablet Take 2 tablets every day by oral route as directed for 1 day. 02/07 completed Not Available Not Available Not Available nitrofura ntoin monohydra te/macroc rystals 100 mg capsule TAKE 1 CAPSULE BY MOUTH TWICE DAILY FOR 7 DAYS 11/16 completed Not Available Not Available Not Available Nexplanon 68 mg subdermal implant Inject 1 implant by subcutan eous route. 11/02 completed Not Available Not Available Not Available Estarylla 0.25 mg-0.035 mg tablet Take 1 tablet every day by oral route. 02/11 completed Not Available Not Available Not Available PrePlus 27 mg iron-1 mg tablet TAKE 1 TABLET BY MOUTH EVERY DAY 09/09 completed Not Available Not Available Not Available Xulane 150 mcg-35 mcg/24 hr transderm al patch Apply 1 patch every week by transder mal route as directed . 03/23 completed Not Available Not Available Not Available PNV 29-1 29 mg iron-1 mg tablet TAKE 1 TABLET BY MOUTH EVERY DAY 09/09 completed Not Available Not Available Not Available Vitals Date Recorded Body height Body mass index (BMI) Body weight Systolic And Diastolic Provider Name and Address Organization Details Last Updated DateTime 11/16/2020 162.56 cm 20.8 kg/m2 76382.32 g 110/76 mm[Hg] Shantell Lyn MA [facility] 11/16/2020 14:22:04 Date Recorded Body height Body mass index (BMI) Body mass index (BMI) [Percentile] Per age and sex Body weight Systolic And Diastolic Provider Name and Address Organization Details Last Updated DateTime 12/18/2018 162.56 cm 20.1 kg/m2 29 % 93878.3 9 g 104/82 mm[Hg] Shantell Lyn [facility] 9 16:02:19 Date Recorded Body height Body mass index (BMI) [Percentile] Per age and sex Body mass index (BMI) Body weight Systolic And Diastolic Provider Name and Address Organization Details Last Updated DateTime 02/11/2019 162.56 cm 35 % 20.6 kg/m2 02487.0 8 g 130/78 mm[Hg] Shantell Lyn [facility] 9 14:34:08 Date Recorded Body weight Body mass index (BMI) Body height Systolic And Diastolic Provider Name and Address Organization Details Last Updated DateTime 03/23/2020 60901.37 g 20.6 kg/m2 162.56 cm 110/70 mm[Hg] Eli Moscoso [facility] 03/23/2020 12:15:00 Date Recorded Body height Provider Name an d Address Organization Details Last Updated DateTime 03/30/2020 162.56 cm Shantell Lyn MA [facility] 03/30 11:19:00 Social History Question Answer Notes LastModified by Organizat ion Details LastModified Time Tobacco Smoking Status Never Smoker Maggy Velasquez MA null, [facility] 05/13/2015 09:29:17 Is Blood Transfusion Acceptable In An Emergency? Yes [email or web address] Information not available 02/07/2018 What Is Your Level Of Caffeine Consumption? Occasional Information not available 02/07/2018 Live With Cats/exposure To Cat Litter No Information not available 02/07/2018 How Much Tobacco Do You Chew? None [email or web address] Information not available 03/23/2020 In The 14 Days Before Symptom Onset, Have You Had Close Contact With A Laboratory-confir med COVID-19 While That Case Was Ill? No Information not available 11/16/2020 In The 14 Days Before Symptom Onset, Have You Had Close Contact With A Person Who Is Under Investigation For COVID-19 While That Person Was Ill? No Information not available 11/16/2020 Have You Been To An Area Known To Be High Risk For COVID-19? No Information not available 11/16/2020 What Type Of Diet Are You Following? REGULAR Information not available 02/07/2018 Which Illicit Or Recreational Drugs Have You Used? Denies [email or web address] Information not available 03/23/2020 Education 12 Information no t available 02/07/2018 What Is The Highest Grade Or Level Of School You Have Completed Or The Highest Degree You Have Received? [id number] Information not available 11/16/2020 Frequent Air Travel No Information not available 02/07/2018 Illicit Drugs Pre- Denies Information not available 02/07/2018 Live Alone Or With Others? With Others With Child [email or web address] Information not available 03/23/2020 Marital Status Single [email or web address] Informatio n not available 02/07/2018 What Was The Date Of Your Most Recent Tobacco Screening? 11/16/2020 Information not available 11/16/2020 How Many Children Do You Have? 1 Information not available 11/12/2018 Performs Monthly Self-breast Exam? Yes [email or web address] Information no t available 03/23/2020 Do You Use Protection During Sex? No [email or web address] Information not available 03/23/2020 What Is Your Relationship Status? Single Information not available 05/13/2015 Do You Use Your Seat Belt Or Car Seat Routinely? Yes Information not available 11/16/2020 Seat Belts Used Routinely Yes Information not available 02/07/2018 Are You Sexually Active? Yes Information not available 02/07/2018 Do You Have Smoke And Carbon Monoxide Detectors In Your Home? Yes Information not available 02/07/2018 Are You Passively Exposed To Smoke? No Information no t available 02/07/2018 How Much Tobacco Do You Smoke? No [email or web address] Information not available 03/23/2020 Smoking Pre- No Information not available 02/07/2018 General Stress Level Low Information not available 02/07/2018 Has Tobacco Cessation Counseling Been Provided? No Information not available 11/16/2020 Sex: Female Functional Status Question Answer Note LastModified by Organizat ion Details LastModified Time Do you use any illicit or recreational drugs? No Information not available 11/16/2020 What is your level of alcohol consumption? None Information not available 05/13/2015 Do you or have you ever used smokeless tobacco? Never used smokeless tobacco [email or web address] Information not available 03/23/2020 Are you currently employed? 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 Never used electronic cigarettes [email or web address] Information not available 03/23/2020 What is your exercise level? None Information not available 02/07/2018 Mental Status Question Answer Note LastModified by Organization D etails LastModified Time Do you feel stressed (tense, restless, nervous, or anxious, or unable to sleep at night)? [id number] [email or web address] Information not available 11/16/2020 Family History Nothing Reported. Medical History Condition Response Other N High Blood Pressure N Breast Cancer N Thyroid Problems N Kidney or Bladder Problems N Lung Disease N Depression N Blood Clots N GI Problems N Acne N Breast Problem N Eating Disorder N Anemia N Anesthesia Complications N Headaches/Migraines N Ovarian Cancer N Diabetes N Anxiety Disorder N Muscle, Joint, or Bone Problems N Blood Transfusions N Seizures/Epilepsy N Polyps N Infertility N Acid Reflux (GERD) N Cancer N Abuse/Domestic Violence N Asthma N Endometriosis N High Cholesterol N Hepatitis N Liver Disease N Heart Disease N Pre-Eclampsia N Osteoporosis N Gynecological History Statement/Question Response Abnormal Pap Y Flow Moderate On BCP's at Conception? N STIs/STDs Yes HPV Vaccine N Duration of Flow (days) 5 Most Recent Mammogram Age at Menarche 10 Current Control Method None Age at First Child 18 Sexually Active? Y Menses Monthly Y Date of Last Pap Smear 03/23/2020 Sexual Problems? N LMP Approximate Desired Control Method None Obstetrics History GPAL:G 2 P 1 0 1 1 Type Value Multiple Births 0 Full Term 1 Induced 0 Spontaneous 0 Premature 0 Living 1 Ectopics 1 Total 2 Immunizations Vaccine Type Date Status Note Provider Nam e and Address Organization Details Recorded Time Influenza, split virus, quadrivalent, preservative 8 completed Not Available [facility] 05/17/2019 02:40:19 Tdap 9 completed Not Available [facility] 05/17/2019 02:44:21 Past Encounters Encounter ID Performer Location Encounter Start Date Encounter Closed Date Diagnosis/Indication Diagnosis SNOMED-CT Code Diagnosis ICD10 Code Diagnosis Note [id number] [place] [address] [address] [place] [address] 09/30/2014 15:46:52 09/30/2014 17:06:33 Gynecologic examination [id number] [facility] [id number] MD [place] [address] [address] [place] [address] 11/11/2014 11:49:10 11/11/2014 14:41:28 Venereal disease screening [id number] [place] [address] [address] [place] [address] 05/04/2015 16:13:58 05/06/2015 11:46:40 Uses contraception 88593655 Z30.8 [id number] [place] [address] [address] [place] [address] 05/13/2015 09:12:45 05/18/2015 11:22:22 Uses contraception 16409683 Z30.8 [id number] [place] [address] [address] [place] [address] 09/23/2015 10:18:45 09/23/2015 10:59:38 Uses contraception 54555673 Z30.8 [id number] MILTON Barajas ([place] [address]) [address] [place] [address] 10/08/2015 11:39:52 10/08/2015 12:06:54 Venereal disease screening 542570469 Z11.3 [id number] MILTON Barajas ([place] [address]) [address] [place] [address] 11/02/2016 14:28:18 11/06/2016 14:52:09 Venereal disease screening 584671631 Z11.3 [id number] MILTON Barajas ([place] [address]) [address] [facility] [place] [address] 11/07/2016 12:26:59 11/08/2016 16:32:01 Chlamydial infection 460795685 A74.9 Infection by Trichomonas 58294550 A59.9 Candidiasis of vagina 72 613575 B37.3 [id number] MILTON Barajas ([place] [address]) [address] [place] [address] 12/05/2016 10:40:24 12/11/2016 16:47:06 Venereal disease screening 193438912 Z11.3 [id number] MILTON Barajas ([place] [address]) [address] [place] [address] 07/09/2017 10:55:23 07/09/2017 18:19:49 test positive 404998518 Z32.01 [id number] MILTON Barajas ([place] [address]) [address] [place] [address] 07/23/2017 17:05:43 07/24/2017 15:39:57 Blighted ovum 83155635 O02.0 [id number] MD Kathryn Yarbrough ([place] [address]) [address] [facility] [place] [address] 07/24/2017 09:53:53 07/25/2017 14:19:34 Blighted ovum 22329615 O02.0 [id number] [facility] [address] [place] [address] [place] [address] 10/11/2017 12:41:40 10/15/2017 16:05:22 Vaginal discharge 742545944 N89.8 [id number] Jyoti Kim [facility] 14 OB [address] [facility] [place] [address] 11/08/2017 10:56:15 11/09/2017 14:48:57 Venereal disease screening 557305743 Z11.3 Vaginal discharge 972345 006 N89.8 [id number] MD Kathryn Flores [address] [place] [address] [place] [address] 11/22/2017 14:41:16 11/22/2017 15:29:55 Postoperative visit 765914576 Z09 Patient is doing well. Decrease in appetite 643 79524 R63.0 Referral to the pillowcase turner was given. [id number] MD Kathryn Flores [address] [place] [address] [place] [address] 12/07/2017 11:50:32 12/07/2017 14:07:53 Gonorrhea 09320913 A54.9 Bacterial vaginosis 4197 00702 N76.0 [id number] MD Kathryn Flores [address] [place] [address] 01/04/2018 11:52:22 01/04/2018 13:01:47 Venereal disease screening 948881143 Z11.3 - SILVERIO was done. Safe sex counseling was done. [id number] MD Khoa Albright ([employer]) [address] [place] [address] 02/07/2018 09:57:51 02/08/2018 11:16:10 Missed period 90739251 N92.5 UPT positive, dwp. Routine an tenatal care 147452458 Z34.01 See ACOG form [id number] MD Khoa Albright ([employer]) [address] [place] [address] 03/07/2018 10:06:09 03/08/2018 10:43:19 Anemia 943431289 D64.9 Diagnosis d/w pt. Rx sent to pharmacy. Estiven melendez discussed. Routine an tenatal care 877951029 Z34.81 See ACOG form [id number] MD Khoa Albright ([employer]) [address] [place] [address] 04/04/2018 10:31:01 04/10/2018 12:48:09 Routine care 594958728 Z34.82 See ACOG form [id number] MD Khoa Albright ([employer]) [address] [facility] [address] 05/02/2018 11:54:07 05/03/2018 13:52:04 Routine care 123746310 Z34.82 See ACOG form [id number] MD Khoa Albright ([employer]) [address] [place] [address] 05/29/2018 10:33:16 05/30/2018 09:02:41 Routine care 622785240 Z34.82 See ACOG form [id number] MD Khoa Albright ([employer]) [address] [place] [address] 06/26/2018 12:03:17 06/26/2018 12:18:17 Routine care 202548799 Z34.82 See ACOG form Uterine si ze for dates discrepancy 525224943 O26.907 [id number] MD Khoa Albright ([employer]) [address] [place] [address] 07/10/2018 11:30:29 07/11/2018 09:50:49 Routine care 063675925 Z34.83 [id number] MD Khoa Albright ([employer]) [address] [place] [address] 08/05/2018 14:51:52 08/07/2018 11:32:44 Routine care 332567136 Z34.83 See ACOG form Uterine si ze for dates discrepancy 199588721 O26.849 US ordered. [id number] MD Khoa Albright ([employer]) [address] [place] [address] 08/13/2018 14:32:13 08/14/2018 10:22:25 growth restriction 28547703 O35.8XX9 NST 2x/wk and BPP Qwk ordered. First today. [id number] MD Khoa Albright ([employer]) [address] [place] [address] 08/19/2018 10:45:08 08/20/2018 09:57:27 Routine care 868711468 Z34.83 See ACOG form [id number] MD Khoa Albright ([employer]) [address] [place] [address] 09/02/2018 10:46:31 09/03/2018 11:50:36 Routine care 890981662 Z34.83 See ACOG form [id number] MD Khoa Albright ([employer]) [address] [place] [address] 09/09/2018 11:54:21 09/10/2018 12:18:50 Routine care 578226205 Z34.83 See ACOG form [id number] MD Khoa Albright ([employer]) [address] [place] [facility] [address] 09/16/2018 11:49:27 09/17/2018 12:24:06 Routine care 044387533 Z34.83 See ACOG form [id number] MD Khoa Albright ([employer]) [address] [facility] [address] 09/24/2018 15:16:30 09/25/2018 12:09:20 Routine care 943726936 Z34.03 See ACOG form [id number] MD Khoa Albright ([employer]) [address] [facility] [place] [address] 10/15/2018 14:57:16 10/16/2018 14:30:34 care 175975028 Z39.2 Doing well. Wants control. See below. [facility] ion care management 274705983 Z30.9 control options discussed. Pt. wants the Mirena IUD. Benefits, risks, and alternativ es to Mirena IUD insertion d/w pt. Pt. expressed understand ing. All pt. questions answered. RTO 2 weeks for UPT and in 4 weeks for repeat UPT and MIrena IUD insertion. [id number] MD Khoa Albright ([employer]) [address] [place] [address] 10/29/2018 14:47:29 10/30/2018 11:35:07 Contraception care management 434185860 Z30.9 UPT negative when read at 5 min. but later faint line. Pt. states she is not sexually active. Beta hCG quant ordered. If negative, will Rx Depo. RTO 2 weeks for repeat UPT and Depo shot. [id number] MD Khoa Albright ([employer]) [address] [place] [address] 11/12/2018 16:03:57 11/13/2018 08:49:41 Contraception care management 441570238 Z30.9 UPT was negative. Depo consent reviewed. Depo shot given. RTO PRN + 3 mo. for next Depo shot. [id number] MD Khoa Albrihgt ([employer]) [address] [place] [address] 12/18/2018 15:43:39 12/19/2018 10:19:20 Contraception care management 013938449 Z30.9 PT has been bleeding since 11/29 and is sick of it. She wants to change control to the patch. She is feeling tired from the continuous bleeding. Rx OCP taper given. RTO at next scheduled Depo visit 01/29 and will start patch if still desired, dwp. [id number] MD Khoa Albright ([employer]) [address] [place] [address] 02/11/2019 14:29:35 02/12/2019 14:37:29 Contraception care management 921463300 Z30.9 Pills only stopped period for one week. Pt. wants the patch. Rx sent. Estiven melendez discussed. [id number] MD Khoa Albright ([employer]) [address] [place] [address] 03/23/2020 12:02:50 03/24/2020 11:19:48 Gynecologic examination 96086874 Z01.419 First pap today. Pt. declines control. Venereal d isease screening 358781319 Z11.3 Telephone visit one week for results. [id number] MD Jovita Albrighthalto ([employer]) [address] [place] [address] 03/30/2020 08:07:55 03/31/2020 07:20:53 Venereal disease screening 923631974 Z11.3 Vaginal culture was negative for gonorrhea, chlamydia, and trichomona s, dwp. STD panel was also completely negative. Individual test results dwp. Low grade squamous intraepithelial lesion on cervical Papanicolaou smear 4432381380 9105 R87.612 Diagnosis d/w pt. Need for repeat pap in one year dwp. Pap showed yeast but pt. denies any symptoms at this time. [id number] [facility] ([facility] [employer]) [address] [place] [address] 11/16/2020 14:17:47 11/18/2020 07:33:06 Increased frequency of urination 592843431 R35.0 UA negative. Pt. slightly dehydrated , dwp. Increase water intake d/w pt. Health Concerns Section Related Observation LastModified by Organization Detai ls LastModified Time None Recorded Concern Status LastModified by Organization Details LastModified Time None Recorded Advance Directives Directive None Recorded Payers Insurance Date Sequence Insurance Name Policy Number Policy Byrnes Covered Member ID Byrnes Member ID Guarantor Name 11/15/2020 1 [employer] [facility] (MEDICAID HMO) [id number] Aunlisae Vieyra [id number] Aunyae V Vieyra 02/20/2020 SLIDING FEE SCHEDULE - DISCOUNT Aunyae V Vieyra 01/02/2020 2 *SELF PAY* Au nyae V Vieyra 02/20/2020 SLIDING FEE SCHEDULE - DISCOUNT Aunyae V Vieyra 03/29/2020 1 [facility] (MEDICAID HMO) Aunlisae Vieyra [id number] Aunyae V Vieyra 07/10/2017 SLIDING FEE SCHEDULE - DISCOUNT Aunyae V Vieyra 08/09/2017 1 *SELF PAY* Au nymadi Vieyra 02/07/2018 SLIDING FEE SCHEDULE - DISCOUNT Joyce Vieyra 11/22/2017 SLIDING FEE SCHEDULE - DISCOUNT Joyce Vieyra 08/09/2017 1 MEDICAID - [id number] - PENDING [id number] Joyce Vieyra 03/29/2020 [place] [facility] Joyce Vieyra [id number] Joyce Vieyra 03/29/2020 1 [place] [facility] Joyce Vieyra [id number] Joyce Vieyra 02/07/2018 2 *SELF PAY* Au dottie Vieyra OBGyn Episode Ob Episode Information Episode Created Date Number of Fetuses Patient Bloodtype Patient rh Status Prepregnancy Weight lbs Domestic Partner Domestic Partner Phone Father Name Sky Cap Status 02/08/20 18 1 CLOSED Fetus Data First Name Last Name Admitted to NICU Weight (g) Sex Living Outcome Pediatric Complications Fetus ID Race Codes Race Delivery Type Ectopic [id number] Jamel Calculation Initial Jamel Date Initial Exam [...] Domestic Partner Domestic Partner Phone Father Name Sky Cap Status 02/08/20 18 1 O Positive CLOSED Fetus Data First Name Last Name Admitted to NICU Weight (g) Sex Living Outcome Pediatric Complications Fetus ID Race Codes Race Delivery Type Willy farmer false 2834.95 F true Full Term [id number] [id number] Afric an Amer[employer] can Vaginal Problems Problem Notes O+/ Ab neg/ HbsAg neg/ RPR N R/ RI/ HIV NR /GC-Chlam neg-neg / 1 hour = 108. Flu shot given 04/04/18. TdaP given 07/10/18 Problem Name Start Date End Date Resolution Snomed Code Not e growth restriction 91360 007 <3rd %ile 08/09/18-->NST 2x/wk and BPP Q wk. 14th %ile 09/10/18. D/C NSTs/AFIs Jamel Calculation Initial Jamel Date Initial Exam Date Initial Exam Provider Initial Ultrasound Date Last Menstrual Period Date Ultra Sound Weeks Gestation 09/26/2018 02/07/2018 [email or web address] 02/13/2018 12/20/2017 7 Eighteen To Twenty Week Jamel Update Ultra Sound Date Fundal Height At Umbil Quickening Date Ultra Sound Latest Weeks Gestation Final Jamel Confirmed By Final Jamel Confirmed Date Final Jamel Date Ultra Sound Latest Days Gestation 05/05/19 19 18 [email or web address] 02/18/2018 09/27/19 19 2 Pre-crista Flowsheet Flowsheet Date 02/07/2018 Beltran Score Blood Edema Fundus Height Fundus Units Glucose Ketones Leukocytes Nitrite Labor Signs Protein Cervic Dilation Cervic Effacement Cervic Station Type Weight in lbs Pre/Post Dialysis Refused Weight 125.475938218767 BP Diastolic BP Location Tested BP Systolic BP Type 68 106 sitting Fetus Heart Rate Present Fetus Movement Comments folder given. Pren atal labs ordered. Rx PNVs sent. Dating US ordered. Nutrition and hydration discussed. RTO 4 weeks for NOB visit. Flowsheet Date 03/07/2018 Beltran Score Blood Edema Fundus Height Fundus Units Glucose Ketones Leukocytes Nitrite Labor Signs Protein Cervic Dilation Cervic Effacement Cervic Station Type Weight in lbs Pre/Post Dialysis Refused Weight 124.025032600811 BP Diastolic BP Location Tested BP Systolic BP Type 70 100 sitting Fetus Heart Rate Present Fetus Movement Comments labs reviewed. Posi tive THC d/w pt. Pt. stopped smoking week 2 weeks ago. Anemia d/w pt. Rx iron and colace sent. US c/w dates, dwp. PE, GC/Chlam cx done. RTO 4 weeks. Quad screen next visit. Flowsheet Date 04/04/2018 Beltran Score Blood Edema Fundus Height Fundus Units Glucose Ketones Leukocytes Nitrite Labor Signs Protein Cervic Dilation Cervic Effacement Cervic Station none 1+ Type Weight in lbs Pre/Post Dialysis Refused Weight 123.531993741537 BP Diastolic BP Location Tested BP Systolic BP Type 60 100 sitting Fetus Heart Rate Present A 150 Present Fetus Movement Comments GC/Chlam cx neg. Flu shot di scussed, given. Quad screen discussed, ordered. RTO 4 weeks. Anatomy US next visit. Flowsheet Date 05/02/2018 Beltran Score Blood Edema Fundus Height Fundus Units Glucose Ketones Leukocytes Nitrite Labor Signs Protein Cervic Dilation Cervic Effacement Cervic Station none trace Type Weight in lbs Pre/Post Dialysis Refused Weight 122.353165924985 BP Diastolic BP Location Tested BP Systolic BP Type 56 96 sitting Fetus Heart Rate Present A 140 Present Fetus Movement A Yes Comments Quad screen negative, dwp. A natomy US ordered. RTO 4 weeks. Flowsheet Date 05/29/2018 Beltran Score Blood Edema Fundus Height Fundus Units Glucose Ketones Leukocytes Nitrite Labor Signs Protein Cervic Dilation Cervic Effacement Cervic Station none neg Type Weight in lbs Pre/Post Dialysis Refused Weight 126.312141391791 BP Diastolic BP Location Tested BP Systolic BP Type 66 116 sitting Fetus Heart Rate Present A 140 Present Fetus Movement A Yes Comments Anatomy US wnl, dwp. RTO 4 w eeks. Flowsheet Date 06/26/2018 Beltran Score Blood Edema Fundus Height Fundus Units Glucose Ketones Leukocytes Nitrite Labor Signs Protein Cervic Dilation Cervic Effacement Cervic Station 22 cm none trace Type Weight in lbs Pre/Post Dialysis Refused Weight 128.033341886457 BP Diastolic BP Location Tested BP Systolic BP Type 68 116 sitting Fetus Heart Rate Present A 140 Present Fetus Movement A Yes Comments Size less than dates. US ord ered. PT labor prec/kick counts discussed. RTO 2 weeks. Third trimester labs next visit. TdaP next visit. Flowsheet Date 07/10/2018 Beltran Score Blood Edema Fundus Height Fundus Units Glucose Ketones Leukocytes Nitrite Labor Signs Protein Cervic Dilation Cervic Effacement Cervic Station Type Weight in lbs Pre/Post Dialysis Refused Weight 130.98047736827 BP Diastolic BP Location Tested BP Systolic BP Type 66 110 sitting Fetus Heart Rate Present Fetus Movement Comments US = 23rd%ile, dwp. Third tr imester labs today. TdaP discussed, given. PT labor prec/kick counts discussed. RTO 2 weeks. Flowsheet Date 08/05/2018 Beltran Score Blood Edema Fundus Height Fundus Units Glucose Ketones Leukocytes Nitrite Labor Signs Protein Cervic Dilation Cervic Effacement Cervic Station 26 cm none neg Type Weight in lbs Pre/Post Dialysis Refused Weight 130.648212879184 BP Diastolic BP Location Tested BP Systolic BP Type 70 100 sitting Fetus Heart Rate Present A 140 Present Fetus Movement A Yes Comments Third trimester labs show an emia, dwp. Pt. already has Rx iron and colace. Still measuring small. Last US last month. Growth US ordered. PT labor prec/kick counts discussed. RTO 2 weeks. Flowsheet Date 08/13/2018 Beltran Score Blood Edema Fundus Height Fundus Units Glucose Ketones Leukocytes Nitrite Labor Signs Protein Cervic Dilation Cervic Effacement Cervic Station Type Weight in lbs Pre/Post Dialysis Refused Weight 135.087617464772 BP Diastolic BP Location Tested BP Systolic BP Type 70 106 sitting Fetus Heart Rate Present Fetus Movement A Yes Comments US showed IUGR, dwp. NST 2x/ wk and BPP Q wk ordered. First today. PT labor prec/kick counts discussed. RTO at next regular appointment. Flowsheet Date 08/19/2018 Beltran Score Blood Edema Fundus Height Fundus Units Glucose Ketones Leukocytes Nitrite Labor Signs Protein Cervic Dilation Cervic Effacement Cervic Station 30 cm none neg Type Weight in lbs Pre/Post Dialysis Refused Weight 132.101083160030 BP Diastolic BP Location Tested BP Systolic BP Type 76 116 sitting Fetus Heart Rate Present A 130 Present Fetus Movement A Yes Comments Pt .getting NST 2x/wk and BP P q wk d/t IUGR. PT labor prec/kick counts discussed. RTO 2 weeks. GBS next visit. Flowsheet Date 09/02/2018 Beltran Score Blood Edema Fundus Height Fundus Units Glucose Ketones Leukocytes Nitrite Labor Signs Protein Cervic Dilation Cervic Effacement Cervic Station 32 cm 2cm 100% -3 Type Weight in lbs Pre/Post Dialysis Refused Weight 134.617567867394 BP Diastolic BP Location Tested BP Systolic BP Type 80 100 sitting Fetus Heart Rate Present A 130 Present Fetus Movement A Yes Comments Pt getting NSTs & BPPs for I UGR, all reassuring. Will continue. GBS done today. Labor prec/kick counts discussed. RTO one week. Flowsheet Date 09/09/2018 Beltran Score Blood Edema Fundus Height Fundus Units Glucose Ketones Leukocytes Nitrite Labor Signs Protein Cervic Dilation Cervic Effacement Cervic Station 32 cm none neg Type Weight in lbs Pre/Post Dialysis Refused Weight 136.725597431587 BP Diastolic BP Location Tested BP Systolic BP Type 78 108 sitting Fetus Heart Rate Present A 140 Present Fetus Movement A Yes Comments NSTs and BPPs all reassuring . Repeat US ordered. If still IUGR, will induce, dwp. Labor prec/kick counts discussed. RTO one week. Flowsheet Date 09/16/2018 Beltran Score Blood Edema Fundus Height Fundus Units Glucose Ketones Leukocytes Nitrite Labor Signs Protein Cervic Dilation Cervic Effacement Cervic Station 33 cm none neg Type Weight in lbs Pre/Post Dialysis Refused Weight 136.890336088148 BP Diastolic BP Location Tested BP Systolic BP Type 70 110 sitting Fetus Heart Rate Present A 130 Present Fetus Movement A Yes Comments US shows 14th % ile, dwp. D/ C NSTs/BPPs, dwp. Labor prec/kick counts discussed. RTO one week. Flowsheet Date 09/24/2018 Beltran Score Blood Edema Fundus Height Fundus Units Glucose Ketones Leukocytes Nitrite Labor Signs Protein Cervic Dilation Cervic Effacement Cervic Station 34 cm none neg 2cm 50% -3 Type Weight in lbs Pre/Post Dialysis Refused Weight 137.591223088362 BP Diastolic BP Location Tested BP Systolic BP Type 62 110 sitting Fetus Heart Rate Present A 145 Present Fetus Movement A Yes Comments Labor prec/kick counts discu ssed. RTO one week. If cervix ripe, IOL 10/03/18. If not ripe, IOL 10/07/18, dwp. Flowsheet Date 10/15/2018 Beltran Score Blood Edema Fundus Height Fundus Units Glucose Ketones Leukocytes Nitrite Labor Signs Protein Cervic Dilation Cervic Effacement Cervic Station Type Weight in lbs Pre/Post Dialysis Refused Weight 121.063060290974 BP Diastolic BP Location Tested BP Systolic BP Type 68 L arm 108 sitting Fetus Heart Rate Present Fetus Movement Comments Menstrual History Last Menstrual Date Menses Monthly On Bcp Conception Prior Menses Frequency Hcg Plus Date Menarche Onset Age 0812/20/2017 true 5 8 12 Genetic Screening And Infection History Question Response Note Patient's Age Will Be 35 Years Or Older At Estim ated Date of Delivery false Thalassemia (Korean, Moldovan, Mediterranean, Or Background): MCV < 80 false Neural Tube Defect (Meningomyelocele, Spina Bifi da, Or Anencephaly) false Congenital Heart Defect false Down Syndrome false Shiva-Sachs (eg, Baptism, Cajun, Egyptian-Brazilian) f alse Nazia Disease false Sickle Cell Disease Or Trait () false Hemophilia Or Other Blood Disorders false Muscular Dystrophy false Cystic Fibrosis false Ruby's Chorea false Mental Retardation/Autism false If Yes, Was Person Tested For Fragile X? false Other Inherited Genetic Or Chromosomal Disorder false Maternal Metabolic Disorder (eg, Type 1 Diabetes , PKU) false Patient Or Baby's Father Had A Child With Defects Not Listed Above false Recurrent Loss, Or A Stillbirth false Medications (including Suppl ements, Vitamins, Herbs, OTC Drugs), Illicit/Recreational Drugs, Alcohol true Any Other Genetic History false Live With Someone With TB Or Exposed To TB false Patient Or Partner Has History Of Genital Herpes false Rash Or Viral Illness Since Last Menstrual Perio d false History Of STD, Gonorrhea, Chlamydia, HPV, Syphi lis false Other Infection History false History of HIV false History of Hepatitis false Prior GBS-infected child false Delivery Information Delivery Date Delivery Type Labor Anesthesia Weeks Gestation Incision Type Labor Labor Length Hrs Delivered By Post Complications Tubal Sterilization Discharge Date Comments 9 Sponta ne[address] None 40.[address] Heike Rodrigues None false Discharge Information Feeding Method Contraceptive Method Maternal HG B and HCT Levels Bottle None 8.6/26.4 Ob Episode Information Episode Created Date Number of Fetuses Patient Bloodtype Patient rh Status Prepregnancy Weight lbs Domestic Partner Domestic Partner Phone Father Name Sky Cap Status 07/10/19 18 1 CLOSED Fetus Data First Name Last Name Admitted to NICU Weight (g) Sex Living Outcome Pediatric Complications Fetus ID Race Codes Race Delivery Type 10840 Jamel Calculation Initial Jamel Date Initial Exam Date Initial Exam Provider Initial Ultrasound Date Last Menstrual Period Date Ultra Sound Weeks Gestation 02/23/2018 07/09/2017 [email or web address] 05/19/2017 0 Eighteen To Twenty Week Jamel Update Ultra Sound Date Fundal Height At Umbil Quickening Date Ultra Sound Latest Weeks Gestation Final Jamel Confirmed By Final Jamel Confirmed Date Final Jamel Date Ultra Sound Latest Days Gestation 0 02/24/20 18 0 Pre- Flowsheet Flowsheet Date 07/09/2017 Beltran Score Blood Edema Fundus Height Fundus Units Glucose Ketones Leukocytes Nitrite Labor Signs Protein Cervic Dilation Cervic Effacement Cervic Station none Type Weight in lbs Pre/Post Dialysis Refused 123.009158984263 BP Diastolic BP Location Tested BP Systolic BP Type 72 102 Fetus Heart Rate Present Fetus Movement Comments Serum HCG drawn today and ob ultrasound given to pt. Doing well. Hospital sent out vits. Will follow up in 2 weeks. Flowsheet Date 07/23/2017 Beltran Score Blood Edema Fundus Height Fundus Units Glucose Ketones Leukocytes Nitrite Labor Signs Protein Cervic Dilation Cervic Effacement Cervic Station Type Weight in lbs Pre/Post Dialysis Refused 126.52627675697 BP Diastolic BP Location Tested BP Systolic BP Type 60 110 sitting Fetus Heart Rate Present Fetus Movement Comments Menstrual History Last Menstrual Date Menses Monthly On Bcp Conception Prior Menses Frequency Hcg Plus Date Menarche Onset Age 0105/19/2017 Genetic Screening And Infection History Question Response Note Patient's Age Will Be 35 Years Or Older At Estim ated Date of Delivery false Thalassemia (Korean, Moldovan, Mediterranean, Or Background): MCV < 80 false Neural Tube Defect (Meningomyelocele, Spina Bifi da, Or Anencephaly) false Congenital Heart Defect false Down Syndrome false Shiva-Sachs (eg, Baptism, Cajun, Egyptian-Brazilian) f alse Nazia Disease false Sickle Cell Disease Or Trait () false Hemophilia Or Other Blood Disorders false Muscular Dystrophy false Cystic Fibrosis false Raffi's Chorea false Mental Retardation/Autism false If Yes, Was Person Tested For [...] Syphi lis false Other Infection History false Plans and Education First Trimester Discussed Date Discussion Item Discussion Note Discuss ed By 07/09/2017 Anticipated course of care [email or web address] 07/09/2017 Alcohol [email or web address] 07/09/2017 Intimate partner violence de [email or web address] 07/09/2017 [facility]2017 Nutrition counseling ; special diet; dietary precautions (mercury, listeriosis) [facility]/09[facility]2017 Childbirth classes/hospital facilities deldredsmit 07/09/2017 HIV and other routine tests [facility]2017 Risk factors identif ied by history deldredsmit 07/09/2017 [facility] gain [facility]2017 Exercise deldredsmit 07/09/2017 Teratogens deldreds 07/09/2017 Use of any medicatio ns (including supplements, vitamins, herbs, or OTC drugs) [facility]2017 [facility] 07/09/2017 Tobacco/smoking cess ation counseling (ask, advise, assess, assist, and arrange) [facility] 07/09/2017 [facility] Dental care [email or web address] 07/09/2017 Travel [email or web address] 07/09/2017 [facility] 07/09/2017 [facility] 07/09/2017 Avoidance of saunas or hot tubs [facility] 07/09/2017 Toxoplasmosis precautions (cats/raw meat) [facility] Second Trimester Discussed Date Discussion Item Discussion Note Discuss ed By Third Trimester Discussed Date Discussion Item Discussion Note Discuss ed By Delivery Information Delivery Date Delivery Type Labor Anesthesia Weeks Gestation Incision Type Labor Labor Length Hrs Delivered By Post Complications Tubal Sterilization Discharge Date Comments Discharge Information Feeding Method Contraceptive Method Maternal HG B and HCT Levels
--- OUTSIDE RECORDS SUMMARY | 2024-11-25 19:57 | XMS_ITS | Clinical Summary ---
Author Organization [facility] Address [address] [place] [address] Phone Care Team Providers Care Shoe Handler Name Role Phone BucioBarak Noreen HOYT Primary Care Provider [phone] Arthur Espinosa MD Unavailable [phone] Allergies No known active allergies Medications [...] 11/24/2024 9:47 PM CDT Emergency [facility] Emergency [address] [place] [address] Joel Quispe, PAC Gastroenteritis Discharge Disposition: Discharged to home or Selfcare 11/24/2024 Travel 11/07/2024 Travel 09/27/2024 10:29 AM CDT - 09/27/2024 11:57 AM CDT Emergency [facility] Emergency [address] [place] [address] Joel Quispe, PAC Variable menstrual cycle Discharge Disposition: Discharged to home or Selfcare 09/27/2024 Travel 09/10/2024 8:40 AM CDT - 09/10/2024 10:47 AM CDT Emergency [facility] Emergency [address] [place] [address] Dano Russell MD Cystitis Discharge Disposition: Discharged to home or Selfcare 09/10/2024 Travel 09/04/2024 8:29 AM CDT - 09/04/2024 9:15 AM CDT Emergency [facility] Emergency [address] [place] [address] Bassem Powell, Dysuria Discharge Disposition: Discharged to [...] = 0.6 oz pur e alcohol) rare [facility] Utilities Answer Date Recorded In the [...] declined 07/16/2024 How often do you attend yazidi or yarsanism serv ices? Patient declined 07/16/2024 Active Member [...] Total Score - Questions 1-9 0 06/28 [facility] Occupat ional Health - Occupational Stress [...] place to sleep or slept in a prison (including now)? No 07/29/2023 Housing Stability Vital Sign Answer Memo e Recorded In the last 12 months, was t here a time when you were not able to pay the mortgage or rent on time? Patient declined 07/17/19 25 Number of Times Moved in the Last Year Not on fi le 07/16/2024 At any time in the past 12 m [facility], were you homeless or living in a prison (including now)? Patient declined 07/16/2024 Sexually Active [...] 1.003 - 1.030 11/24/2024 8:22 PM CDT [facility] URINE PH 6.0 5.0 - 9.0 11/24/2024 8:22 PM CDT [facility] WBC ESTERASE Negative Negative 11/24/2024 8:22 PM CDT [facility] NITRITE Negative Negative 11/24/2024 8:22 PM CDT [facility] PROTEIN, RANDOM URINE 30 mg/dL(A) Negative 11/24/2024 8:22 PM CDT [facility] URINE GLUCOSE, QUAL Negative Negative 11/24/2024 8:22 PM CDT [facility] URINE KETONES 50 mg/dL(A) Negative 11/24/2024 8:22 PM CDT [facility] UROBILINOGEN Normal Normal mg/dL 11/24/2024 8:22 PM CDT [facility] URINE BLOOD Negative Negative brodie/ul 11/24/2024 8:22 PM CDT [facility] URINALYSIS COLOR Yellow 11/25/19 8:22 PM CDT [facility] URINALYSIS CLARITY Clear 11/24/2024 8:22 PM CDT [facility] WBC (Urine) 0-5 Negative, 0-5 /hpf 11/24/2024 8:22 PM CDT [facility] URINE RBC'S Negative Negative, 0-2 /hpf 11/24/2024 8:22 PM CDT [facility] EPITHELIAL CELLS Large amount squamous /lpf 11/24/2024 8:22 PM CDT [facility] BACTERIA, URINE Few(A) Negative /hpf 11/24/2024 8:22 PM CDT [facility] URINE YEAST Few Budding Yeast 11/24/2024 8:22 PM CDT [facility] Urine URINE SPECIMEN / Unknown Non-Phlebotomy Collection / Unknown 11/24/2024 7:37 PM CDT 11/24/2024 8:00 PM CDT Joel Quispe PAC URINE ORDERABLES Fin al Result Performing Organization Address City/[facility]/ZIP Co de Phone Number [facility] [address] [place] [address] * SAURAV HOLBROOK HEPARIN/SST TOP TUBE (11/24/2024 7:32 PM CDT) Blood No Phlebotomy Charged / Unknown 11/24/2024 7:32 PM CDT 11/24/2024 8:00 PM CDT Joel Quispe PAC HEMATOLOGY ORDERABLE S Final Result Performing Organization Address [facility] Co de Phone Number [facility] [address] [place] [address] * (ABNORMAL) CBC with Auto Differential (11/24/2024 7:32 PM CDT) Only the most recent of2 resultswithin the time period is included. WBC 6.21 4.00 - 12.00 10(3)/mcL 11/24/2024 8:27 PM CDT [facility] RBC 4.05 3.80 - 5.30 10(6)/mcL 11/24/2024 8:27 PM CDT [facility] HEMOGLOBIN (HGB) 8.5(L) 12.0 - 15.8 g/dL 11/24/2024 8:27 PM CDT [facility] HEMATOCRIT (HCT) 28.0(L) 36.0 - 47.0 % 11/24/2024 8:27 PM CDT [facility] MCV 69.1(L) 82.0 - 96.0 fL 11/24/2024 8:27 PM CDT [facility] MCH 21.0(L) 26.0 - 34.0 pg 11/24/2024 8:27 PM CDT [facility] MCHC 30.4(L) 31.0 - 36.0 g/dL 11/24/2024 8:27 PM CDT [facility] PLATELET COUNT 293 140 - 440 10(3)/mcL 11/24/2024 8:27 PM CDT [facility] RDW 18.8(H) 11.8 - 15.5 % 11/24/2024 8:27 PM CDT [facility] MPV 10.7 9.7 - 12.4 fL 11/24/2024 8:27 PM CDT [facility] NEUTROPHILS 63.1 47.0 - 73.0 % 11/24/2024 8:27 PM CDT [facility] LYMPHOCYTES 24.2 18.0 - 42.0 % 11/24/2024 8:27 PM CDT [facility] MONOCYTES 9.8 4.0 - 12.0 % 11/24/2024 8:27 PM CDT [facility] EOSINOPHILS 2.1 0.0 - 5.0 % 11/24/2024 8:27 PM CDT [facility] BASOPHILS 0.5 0.0 - 1.0 % 11/24/2024 8:27 PM CDT [facility] IMMATURE GRANULOCYTE 0.3 0.0 - 0.4 % 11/24/2024 8:27 PM CDT [facility] Comment:Immature Granulocyte s includes Metamyelocytes, Myelocytes, and Promyelocytes. ABSOLUTE NEUTROPHILS 3.92 1.60 - 7.70 10(3)/mcL 11/24/2024 8:27 PM CDT [facility] ABSOLUTE LYMPHOCYTES 1.50 1.30 - 3.20 10(3)/mcL 11/24/2024 8:27 PM CDT [facility] ABSOLUTE MONOCYTES 0.61 0.20 - 1.00 10(3)/mcL 11/24/2024 8:27 PM CDT [facility] ABSOLUTE EOSINOPHIL 0.13 0.00 - 0.40 10(3)/mcL 11/24/2024 8:27 PM CDT [facility] ABSOLUTE BASOPHILS 0.03 0.00 - 0.10 10(3)/mcL 11/24/2024 8:27 PM CDT [facility] ABSOLUTE IMMATURE GRANULOCYTE 0.02 0.00 - 0.03 10 (3) mcL. 11/24/2024 8:27 PM CDT [facility] NRBC PER 100 WBC 0 11/25/19 8:27 PM CDT [facility] RESULTS ARE CONSISTENT WITH PERIPHERAL SMEAR REVIEW Yes 11/24/2024 8:27 PM CDT [facility] RBC MORPHOLOGY CONSISTENT WITH INDICES Yes 11/24/2024 8:27 PM CDT [facility] POIKILOCYTOSIS 1+ 11/24/2024 8:27 PM CDT [facility] TARGET Present 11/24/2024 8:27 PM CDT [facility] ANETTE CELLS Present 11/24/2024 8:27 PM CDT [facility] TEARDROP CELLS Present 11/24/2024 8:27 PM CDT [facility] Blood Venipuncture / Unknown 11/24/2024 7:32 PM CDT 11/24/2024 8:00 PM CDT Narrative [facility] - 11/24/2024 8:27 PM CDT Microcytosis Anisocytosis us Joel Quispe PAC HEMATOLOGY ORDERABLE S Final Result [facility] [address] [place] [address] * Lipase (11/24/2024 7:32 PM CDT) LIPASE 57 8 - 78 U/L 11/24/2024 8:22 PM CDT [facility] Blood Venipuncture / Unknown 11/24/2024 7:32 PM CDT 11/24/2024 8:00 PM CDT Joel Quispe PAC CHEMISTRY ORDERABLES Final Result [facility] [address] [place] [address] * (ABNORMAL) CMP (11/24/2024 7:32 PM CDT) Only the most recent of2 resultswithin the time period is included. SODIUM 137 136 - 145 mmol/L 11/24/2024 8:22 PM CDT [facility] POTASSIUM 3.6 3.5 - 5.1 mmol/L 11/24/2024 8:22 PM CDT [facility] CHLORIDE 108(H) 98 - 107 mmol/L 11/24/2024 8:22 PM CDT [facility] CO2, VENOUS 19(L) 22 - 30 mmol/L 11/24/2024 8:22 PM CDT [facility] ANION GAP 13.6 <18.0 mmol/L 11/24/2024 8:22 PM CDT [facility] GLUCOSE 90 70 - 99 mg/dL 11/24/2024 8:22 PM CDT [facility] BUN 10 5 - 18 mg/dL 11/24/2024 8:22 PM CDT [facility] CREATININE, BLOOD 0.81 0.60 - 1.00 mg/dL 11/24/2024 8:22 PM CDT [facility] BUN/CREATININE RATIO 12 12 - 20 ratio 11/24/2024 8:22 PM CDT [facility] TOTAL PROTEIN 7.3 6.0 - 8.0 g/dL 11/24/2024 8:22 PM CDT [facility] ALBUMIN 4.2 3.5 - 5.0 g/dL 11/24/2024 8:22 PM CDT [facility] A/G RATIO 1.4 1.0 - 2.2 11/24/2024 8:22 PM CDT [facility] CALCIUM 8.6(L) 8.7 - 10.5 mg/dL 11/24/2024 8:22 PM CDT [facility] T BILI 1.0 0.2 - 1.2 mg/dL 11/24/2024 8:22 PM CDT [facility] SGOT (AST) 18 <43 U/L 11/24/2024 8:22 PM CDT [facility] SGPT (ALT) 9 <56 U/L 11/24/2024 8:22 PM CDT [facility] ALKALINE PHOSPHATASE 30(L) 40 - 150 U/L 11/24/2024 8:22 PM CDT [facility] GFR, ESTIMATED >60 >=60 11/24/2024 8:22 PM CDT [facility] Comment: Creatinine Clearance is the preferred criteria for selecting drug dose adjustments in renally impaired patients. The GFR is provided as additional pertinent clinical information. GFR is reported in mL/min/1.73 sq m. Calculation based on the Chronic Kidney Disease Epidemiology Collaboration (CKD- EPI) equation refit without adjustment for race. GFR, EST. >60 >=60 025 8:22 PM CDT [facility] GFR, EST. NONAFRICAN >60 >=60 11/24/2024 8:22 PM CDT [facility] Blood Venipuncture / Unknown 11/24/2024 7:32 PM CDT 11/24/2024 8:00 PM CDT us Joel Quispe PAC CHEMISTRY ORDERABLES Final Result [facility] [address] [place] [address] * HCG Beta Subunit Serum Quant (09/27/2024 10:45 AM CDT) HCG BETA SUBUNIT, QUANT <2.42 0.00 - 5.00 mIU/mL 09/27/2024 11:20 AM CDT [facility] Blood Venipuncture / Unknown 09/27/2024 10:45 AM CDT 09/27/2024 10:52 AM CDT Narrative [facility] - 09/27/2024 11:20 AM CDT HCG [...] hCG. Joel HOYT CHEMISTRY ORDERABLES Final Result [facility] [address] [place] [address] * POCT Urine HCG () (09/27/2024 10:37 AM CDT) Only the most recent of2 resultswithin the time period is included. POC URINE Negative POC URINE CONTROL Engraver Picture Pass Urine 09/27/2024 10:3 7 AM CDT Joel Quispe [facility] POINT OF CARE TESTIN G (MANUAL) Final Result * Culture, Urine (09/10/2024 9:30 AM CDT) Only the most recent of2 resultswithin the time period is included. CULTURE RESULTS Mixed Growth or 3 or More Organisms, Probable Collection Contamination, Suggest Repeat 09/11/2024 10:01 AM CDT [facility] Urine URINE SPECIMEN / Unknown Non-Phlebotomy Collection / Unknown 09/10/2024 9:30 AM CDT 09/10/2024 9:56 AM CDT us Dano Russell MD MICROBIOLOGY - GENERAL OR DERABLES Final Result [facility] [address] [place] [address], from Last 3 Months Care Teams Shoe Handler Relationship Specialty Start Date End Date Barak Bucio, PAC [address] [place] [address] PCP - General Physician Medical File Clerk 05/28/23 Arthur Espinosa MD [address] [address] Consulting Physician Urology 11/04/24
--- OUTSIDE RECORDS SUMMARY | 2024-11-25 19:57 | XMS_ITS | Encounter Summary ---
Author Organization [facility] Address [address] [place] [address] Phone Care Team Providers Care Outside Sales Account Executive Name Role Phone Estelle Lopez APRN, CNP Unavailable [phone] Barak Bucio Primary Care Provider Arthur Espinosa MD Unavailable [phone] Reason for Visit * Reason Comments Medication Refill Encounter Details Date Type Department Care Team (Late st Contact Info) Description 06/30/2023 Refill [facility] - Primary Care - [place] [address] [place] [address] Barak Bucio PAC [address] [place] [address] Medication Refill Social History Tobacco [...] - 07/02/2023 1:24 PM CST Refill approved. [facility]E [employer]EE[facility] * Telephone Encounter - Castro Membreno RN [...] Dept 06/29/23 Office Visit Barak Bucio PAC [facility] 05/28/23 Office Visit Barak Bucio PAC [facility] Showing recent visits within past 365 days and meeting all other requirements Future Appointments Date Type Provider Dept 07/30/23 Appointment Barak Bucio PAC [facility] Showing future appointments within next 90 days and meeting all other requirements INE MOL[employer]QUEEZE documented in this encounter Plan of Treatment Not on file documented as of this encounter Visit Diagnoses Diagnosis Flexural eczema Other atopic dermatitis and related conditions documented in this encounter Additional Health Concerns Infection Onset Date Last Indicated Resolved Time COVID - 19 12/22/2023 12/22/2023 01/01/2024 12:1 6 AM CDT COVID - 19 04/27/2024 04/27/2024 04/27/2024 1:50 PM MACHINE MOLDER SQUEE[facility] Assessment Noted Time PHQ-9 Depression Total Score: 0 05/28/19 9:38 AM MACH[employer] MOLDER [employer]QUEE[employer] documented as of this encounter Care Teams Outside Sales Account Executive Relationship Specialty Start Date End Date Barak Bucio PAC [address] [place] [id number] PCP - General Physician Mobile Device Engineer 05/28/23 Estelle Lopez, LOGISTICIAN, ALUMINUM CAN COLLECTOR [address] [place] [address] Nurse Practitioner Advanced Practice Nurse 07/12/20 06/10/24 Arthur Espinosa MD [address] [address] Consulting Physician Urology 11/04/24 documented as of this encounter
--- OUTSIDE RECORDS SUMMARY | 2024-11-25 19:57 | XMS_ITS | Encounter Summary ---
Author Organization [facility] Address [address] [place] [address] Phone Care Team Providers Care Pulmonary Fellow Name Role Phone Barak Bucio PAC Primary Care Provider [phone] Arthur Espinosa MD Unavailable [phone] Reason for Visit * Reason Comments Abdominal Pain Diarrhea Encounter Details Date Type Department Care Team (Late st Contact Info) Description 11/24/2024 7:00 PM CDT - 11/24/2024 9:47 PM CDT Emergency [facility] Emergency [address] [place] [address] Joel Quispe, PAC [address] [place] [address] Gastroenteritis Discharge Disposition: Discharged to home or Selfcare Social History Tobacco Use Types Packs/Day Years Used Date Smoking Tobacco: Never Smokeless Tobacco: Never Alcohol Use Standard Drinks/Week Comments Yes 0 (1 standard drink = 0.6 oz pur e alcohol) rare [facility] Utilities Answer Date Recorded In the past 12 months has [employer], gas, oil, or water company threatened to [...] declined 07/16/2024 How often do you attend rastafarian or anglican serv ices? Patient declined 07/16/2024 Active Member [...] Total Score - Questions 1-9 0 06/28 [facility] [place] [facility] - Occupational Stress Questionnaire Answer Date Recorded [...] any time in the past 12 m [facility], were you homeless or living in [...] videos and all your education online visit, [email or web address] or scan this QR code with your [...] sports drinks. ? Avoid alcohol. Eat bland, lvzw-it-ibuxsl foods in small amounts as you are able. These foods include: ? Bananas. ? Applesauce. ? Rice. ? Low-fat (lean) meats. ? [place]. ? Crackers. Avoid spicy or fatty foods. Medicines Take ewla-gro-gbkefhz and prescription medicines only as told by your doctor. If you were prescribed antibiotics, take them as told by your doctor. Do not stop taking them even if you start to feel better. General instructions Wash your hands often using soap and water for 20 seconds. If soap and water are not available, usehand manager trade. Others in your home should wash their [...] 2008-10-02 Document Updated: 2022-10-03 Document Reviewed: 2022-10-03 [employer] Cool Patient Education ? 2024 [employer]. documented in this encounter Plan of Treatment [...] - 1.030 11/24/2024 8:22 PM CDT [facility] URINE PH 6.0 5.0 - 9.0 11/24/2024 8:22 PM CDT [facility] WBC ESTERASE Negative Negative 11/24/2024 8:22 PM CDT [facility] NITRITE Negative Negative 11/24/2024 8:22 PM CDT [facility] PROTEIN, RANDOM URINE 30 mg/dL(A) Negative 11/24/2024 8:22 PM CDT [facility] URINE GLUCOSE, QUAL Negative Negative 11/24/2024 8:22 PM CDT [facility] URINE KETONES 50 mg/dL(A) Negative 11/24/2024 8:22 PM CDT [facility] UROBILINOGEN Normal Normal mg/dL 11/24/2024 8:22 PM CDT [facility] URINE BLOOD Negative Negative brodie/ul 11/24/2024 8:22 PM CDT [facility] URINALYSIS COLOR Yellow 11/25/19 8:22 PM CDT [facility] URINALYSIS CLARITY Clear 11/24/2024 8:22 PM CDT [facility] WBC (Urine) 0-5 Negative, 0-5 /hpf 11/24/2024 8:22 PM CDT [facility] URINE RBC'S Negative Negative, 0-2 /hpf 11/24/2024 8:22 PM CDT [facility] EPITHELIAL CELLS Large amount squamous /lpf 11/24/2024 8:22 PM CDT [facility] BACTERIA, URINE Few(A) Negative /hpf 11/24/2024 8:22 PM CDT [facility] URINE YEAST Few Budding Yeast 11/24/2024 8:22 PM CDT [facility] Urine URINE SPECIMEN / Unknown Non-Phlebotomy Collection / Unknown 11/24/2024 7:37 PM CDT 11/24/2024 8:00 PM CDT Joel Quispe PAC URINE ORDERABLES Fin al Result [facility] [address] [place] [address] * SAURAV HOLBROOK HEPARIN/SST TOP TUBE (11/24/2024 7:32 PM CDT) Blood No Phlebotomy Charged / Unknown 11/24/2024 7:32 PM CDT 11/24/2024 8:00 PM CDT us Joel Juan A Quispe PAC HEMATOLOGY ORDERABLE S Final Result Performing Organization Address City/[facility]/ZIP Co de Phone Number [facility] [address] [place] [address] * (ABNORMAL) CBC with Auto Differential (11/24/2024 7:32 PM CDT) WBC 6.21 4.00 - 12.00 10(3)/mcL 11/24/2024 8:27 PM CDT [facility] RBC 4.05 3.80 - 5.30 10(6)/mcL 11/24/2024 8:27 PM CDT [facility] HEMOGLOBIN (HGB) 8.5(L) 12.0 - 15.8 g/dL 11/24/2024 8:27 PM CDT [facility] HEMATOCRIT (HCT) 28.0(L) 36.0 - 47.0 % 11/24/2024 8:27 PM CDT [facility] MCV 69.1(L) 82.0 - 96.0 fL 11/24/2024 8:27 PM CDT [facility] MCH 21.0(L) 26.0 - 34.0 pg 11/24/2024 8:27 PM CDT [facility] MCHC 30.4(L) 31.0 - 36.0 g/dL 11/24/2024 8:27 PM CDT [facility] PLATELET COUNT 293 140 - 440 10(3)/mcL 11/24/2024 8:27 PM CDT [facility] RDW 18.8(H) 11.8 - 15.5 % 11/24/2024 8:27 PM CDT [facility] MPV 10.7 9.7 - 12.4 fL 11/24/2024 8:27 PM CDT [facility] NEUTROPHILS 63.1 47.0 - 73.0 % 11/24/2024 8:27 PM CDT [facility] LYMPHOCYTES 24.2 18.0 - 42.0 % 11/24/2024 8:27 PM CDT [facility] MONOCYTES 9.8 4.0 - 12.0 % 11/24/2024 8:27 PM CDT [facility] EOSINOPHILS 2.1 0.0 - 5.0 % 11/24/2024 8:27 PM CDT [facility] BASOPHILS 0.5 0.0 - 1.0 % 11/24/2024 8:27 PM CDT [facility] IMMATURE GRANULOCYTE 0.3 0.0 - 0.4 % 11/24/2024 8:27 PM CDT [facility] Comment:Immature Granulocyte s includes Metamyelocytes, Myelocytes, and Promyelocytes. ABSOLUTE NEUTROPHILS 3.92 1.60 - 7.70 10(3)/mcL 11/24/2024 8:[address] [facility] ABSOLUTE LYMPHOCYTES 1.50 1.30 - 3.20 10(3)/mcL 11/24/2024 8:27 PM CDT [facility] ABSOLUTE MONOCYTES 0.61 0.20 - 1.00 10(3)/mcL 11/24/2024 8:27 PM CDT [facility] ABSOLUTE EOSINOPHIL 0.13 0.00 - 0.40 10(3)/mcL 11/24/2024 8:27 PM CDT [facility] ABSOLUTE BASOPHILS 0.03 0.00 - 0.10 10(3)/mcL 11/24/2024 8:27 PM CDT [facility] ABSOLUTE IMMATURE GRANULOCYTE 0.02 0.00 - 0.03 10 (3) mcL. 11/24/2024 8:27 PM CDT [facility] NRBC PER 100 WBC 0 11/25/19 8:27 PM CDT [facility] RESULTS ARE CONSISTENT WITH PERIPHERAL SMEAR REVIEW Yes 11/24/2024 8:27 PM CDT [facility] RBC MORPHOLOGY CONSISTENT WITH INDICES Yes 11/24/2024 8:27 PM CDT [facility] POIKILOCYTOSIS 1+ 11/24/2024 8:27 PM CDT [facility] TARGET Present 11/24/2024 8:27 PM CDT [facility] ANETTE CELLS Present 11/24/2024 8:27 PM CDT [facility] TEARDROP CELLS Present 11/24/2024 8:27 PM CDT [facility] Blood Venipuncture / Unknown 11/24/2024 7:32 PM CDT 11/24/2024 8:00 PM CDT Narrative [facility] - 11/24/2024 8:27 PM CDT Microcytosis Anisocytosis Joel Quispe PAC HEMATOLOGY ORDERABLE S Final Result [facility] [address] [place] [address] * Lipase (11/24/2024 7:32 PM CDT) LIPASE 57 8 - 78 U/L 11/24/2024 8:22 PM CDT [facility] Blood Venipuncture / Unknown 11/24/2024 7:32 PM CDT 11/24/2024 8:00 PM CDT Joel Quispe PAC CHEMISTRY ORDERABLES Final Result [facility] [address] [place] [address] * (ABNORMAL) CMP (11/24/2024 7:32 PM CDT) SODIUM 137 136 - 145 mmol/L 11/24/2024 8:22 PM CDT [facility] POTASSIUM 3.6 3.5 - 5.1 mmol/L 11/24/2024 8:22 PM CDT [facility] CHLORIDE 108(H) 98 - 107 mmol/L 11/24/2024 8:22 PM CDT [facility] CO2, VENOUS 19(L) 22 - 30 mmol/L 11/24/2024 8:22 PM CDT [facility] ANION GAP 13.6 <18.0 mmol/L 11/24/2024 8:22 PM CDT [facility] GLUCOSE 90 70 - 99 mg/dL 11/24/2024 8:22 PM CDT [facility] BUN 10 5 - 18 mg/dL 11/24/2024 8:22 PM CDT [facility] CREATININE, BLOOD 0.81 0.60 - 1.00 mg/dL 11/24/2024 8:22 PM CDT [facility] BUN/CREATININE RATIO 12 12 - 20 ratio 11/24/2024 8:[address] [facility] TOTAL PROTEIN 7.3 6.0 - 8.0 g/dL 11/24/2024 8:22 PM CDT [facility] ALBUMIN 4.2 3.5 - 5.0 g/dL 11/24/2024 8:22 PM CDT [facility] A/G RATIO 1.4 1.0 - 2.2 11/24/2024 8:22 PM CDT [facility] CALCIUM 8.6(L) 8.7 - 10.5 mg/dL 11/24/2024 8:22 PM CDT [facility] T BILI 1.0 0.2 - 1.2 mg/dL 11/24/2024 8:22 PM CDT [facility] SGOT (AST) 18 <43 U/L 11/24/2024 8:22 PM CDT [facility] SGPT (ALT) 9 <56 U/L 11/24/2024 8:22 PM CDT [facility] ALKALINE PHOSPHATASE 30(L) 40 - 150 U/L 11/24/2024 8:22 PM CDT [facility] GFR, ESTIMATED >60 >=60 11/24/2024 8:22 PM CDT [facility] Comment: Creatinine Clearance is the preferred criteria for selecting drug dose adjustments in renally impaired patients. The GFR is provided as additional pertinent clinical information. GFR is reported in mL/min/1.73 sq m. Calculation based on the Chronic Kidney Disease Epidemiology Collaboration (CKD- EPI) equation refit without adjustment for race. GFR, EST. >60 >=60 025 8:22 PM CDT [facility] GFR, EST. NONAFRICAN >60 >=60 11/24/2024 8:22 PM CDT [facility] Blood Venipuncture / Unknown 11/24/2024 7:32 PM CDT 11/24/2024 8:00 PM CDT Joel Quispe PAC CHEMISTRY ORDERABLES Final Result Performing Organization Address City/State/[facility] Co de Phone Number [facility] [address] [place] [address] documented in this encounter Visit Diagnoses Diagnosis Gastroenteritis- Primary Other and unspecified noninfectious gastroenteritis and colitis Chronic anemia Anemia, unspecified documented in this encounter Additional Health Concerns Assessment Noted Time PHQ-9 Depression Total Score: 0 07/17/19 25 1:21 PM CDT documented as of this encounter Care Teams Pulmonary Fellow Relationship Specialty Start Date End Date Barak Bucio, PAC [address] [place] [address] PCP - General Physician Digestion Operator 05/28/23 Arthur Espinosa MD [address] [address] Consulting Physician Urology 11/04/24 documented as of this encounter
--- OUTSIDE RECORDS SUMMARY | 2024-11-25 19:57 | XMS_ITS | Clinical Summary ---
Author Organization [facility] [employer] Address [address] [place] [place] [address] Care Team Providers Care Patent Paralegal Name Role Phone Unavailable Primary Care Provider Unavailabl e Source Comments [facility] [employer],non-owned Affiliates and Associated Physician Practices is amultiple site organization consisting of ambulatory clinics and hospital sitesin [place], [place], [place] and [place]. This disclosure is being madepursuant to the Care Everywhere program and may not contain all information available regarding this patient. Last updated 18.[facility] [employer] Allergies No known active allergies Medications * [...] and heating? Not hard at all 09/03/2023 [facility] Occupat ional [facility] - Occupational Stress [...] place to sleep or slept in a long-term (including now)? No 09/03/2023 Proctor Depression Scale Answer Date Recorded Proctor Depression Scale Total 0 09/03/2023 The thought [...] Diagnosis Comment 09/06/2023 3:10 PM CDT [facility] ([facility]) Comment: NEGATIVE FOR INTRAEPITHELIAL LESION OR MALIGNANCY. REACTIVE CELLULAR CHANGES AND/OR REPAIR ARE PRESENT. Specimen Adequacy Comment 024 3:10 PM CDT [facility] ([facility]) Comment: Satisfactory for evaluation. Endocervical and/or squamous metaplastic cells (endocervical component) are present. Performed by Comment 09/06/2023 3:10 PM CDT [facility] ([facility]) Comment:Nanda Chen Cytote chnologist (ASCP) Electronically Signed by Comment 09/06/2023 3:10 PM CDT [facility] ([facility]) Comment:Krystin Nelson MD, P athologist Comment . 09/06/2023 3:10 PM CDT [facility] ([facility]) Note Comment 09/06/2023 3:10 PM CDT [facility] ([facility]) Comment: The Pap smear is a screening test designed to aid in the detection of premalignant and malignant conditions of the uterine cervix. It is not a diagnostic procedure and should not be used as the sole means of detecting cervical cancer. Both false-positive and false-negative reports do occur. [employer] CPT Code Automation Comment 09/06/2023 3:10 PM CDT [facility] ([facility]) Comment: This liquid based ThinPrep(R) pap test was screened with the use of an image guided system. Note Comment 09/06/2023 3:10 PM CDT [facility] ([facility]) Comment: The HPV DNA reflex criteria were not met with this specimen result therefore, no HPV testing was performed. Pathology/Cytolo gy ENTIRE ENDOCERVIX / Unknown Collection / Unknown 09/03/2023 10:48 AM CDT 09/03/2023 11:16 AM CDT Narrative [facility] ([facility]) - 09/06/2023 3:10 PM CDT Performed at: 01 - [address] [id number] Reception Manager: Gina Fernandez MD, Phone: [phone] Specimen Comment: No. of containers..01 ThinPrep Vial us Sherry Sutherland MD LAB - PATHOLOGY /CYTOLOGY ORDERABLES Final Result [facility] ([facility]) [address] [place] [address] * HIV-1 HIV-2 ANTIBODY + HIV P24 AG PANEL (09/03/2023 10:46 AM CDT) HIV1/2 Ab + P24 Ag Non Reactive Non Reactive 09/03/2023 12:09 PM CDT [facility] Blood BLOOD SPECIMEN / Unknown Venipuncture / Unknown 09/03/2023 10:46 AM CDT 09/03/2023 11:18 AM CDT Narrative [facility] - 09/03/2023 12:09 PM CDT No Laboratory evidence of HIV infection. Sherry Sutherland MD LAB - CHEMISTRY ORDERABLES Final Result [facility] [address] [place], [place] [id number] * HEPATITIS C ANTIBODY (09/03/2023 10:46 AM CDT) Pathologist [facility] HCV Antibody Screen Non Reactive Non Reactive 09/03/2023 12:10 PM CDT [facility] Blood BLOOD SPECIMEN / Unknown Venipuncture / Unknown 09/03/2023 10:46 AM CDT 09/03/2023 11:18 AM CDT Narrative [facility] - 09/03/2023 12:10 PM CDT Non Reactive - Antibodies to Hepatitis C virus (HCV) were not detected, result does not exclude early acute HCV infection. Sherry Sutherland MD LAB - CHEMISTRY ORDERABLES Final Result [facility] [address] [place] [id number] from Last 3 Months or Most Recently Relevant to Health Maintenance Insurance [facility]
--- OUTSIDE RECORDS SUMMARY | 2024-11-25 19:57 | XMS_ITS | Encounter Summary ---
Author Organization [employer] Care Team Providers Care Orthopaedic General Name Role Phone Barak Bucio PAC Primary Care Provider [phone] Arthur Espinosa MD Unavailable [phone] Encounter Details Date Type Department Care Team (Latest Contact Info) Description 11/24/2024 Travel Social History Tobacco Use Types Packs/Day Years Used Date Smoking Tobacco: Never Smokeless Tobacco: Never Alcohol Use Standard Drinks/Week Comments Yes 0 (1 standard drink = 0.6 oz pur e alcohol) rare [facility] Utilities Answer Date Recorded In the past 12 months has [employer], gas, oil, or water company threatened [...] declined 07/16/2024 How often do you attend advent or evangelical serv ices? Patient declined 07/16/2024 Active Member [...] Total Score - Questions 1-9 0 06/28 [facility] - Occupational [...] place to sleep or slept in a alf (including now)? No 07/29/2023 Housing Stability Vital Sign Answer Memo e Recorded In the last 12 months, was t here a time when you were not able to pay the mortgage or rent on time? Patient declined 07/17/19 25 Number of Times Moved in the Last Year Not on fi le 07/16/2024 At any time in the past 12 m [facility], were you homeless or living in a alf (including now)? Patient declined 07/16/2024 Sexually Active [...] documented as of this encounter Care Teams Orthopaedic General Relationship Specialty Start Date End Date Barak Bucio, EVELINA [address] [place] [id number] PCP - General Physician Lab Rep 05/28/23 Arthur Espinosa MD [address] [address] Consulting Physician Urology 11/04/24 documented as of this encounter
--- NOTE | 2024-11-25 20:01 | ED_ITS ---
HPI - Nausea/Vomiting/Diarrhea General Chief complaint: Nausea/Vomiting/Diarrhea Stated complaint: diarrhea x 3 days Time Seen by Provider: 11/25/24 19:26 History of Present Illness HPI Narrative: Patient is a 24-year-old female who presents to the nausea and diarrhea that started on Sunday, 3 days ago. Patient endorses bilateral lower back pain and lower abdominal pain. She reports the diarrhea is yellow in color. Patient denies alcohol use and endorses occasional marijuana use. Since her symptoms started she reports she has had decreased p.o. intake. Patient endorses a history of ectopic and anemia. She denies any recent fevers, chest pain, or shortness of breath. Related Data Allergies Allergy/AdvReac Type Severity Reaction Status Date / Time No Known Allergies Allergy Verified 11/25/24 20:37 Review of Systems 2 Review of Systems: All systems reviewed & are unremarkable except as noted in HPI and below PMFSH Family History Family History Other Unknown family medical history Social History Social History Smoking status: Never smoker Substance use: never Lack of Transportation: No Lack of Food: Never True Current Housing: I Have Housing Concerned About Future Housing: No Difficulty Paying Gas/Electric Bills: No Difficulty Paying for Meds: No Currently Unemployed: No Education: High School Diploma/GED Difficulty w/ Childcare or Family Care: No Spiritual care concerns: No Exam 2 Narrative: GENERAL: Well appearing, well-nourished, non-toxic, in no acute distress. HEAD: Normocephalic, atraumatic. NECK: Supple. No adenopathy, no masses. RESPIRATORY: Airway patent, respirations nonlabored. Clear to auscultation bilaterally, no rales, rhonchi, wheezing. CARDIOVASCULAR: Regular rate and rhythm without murmurs, rubs, or gallops. Peripheral pulses 2+ and equal bilaterally. ABDOMINAL: Soft, nontender, nondistended, no hepatosplenomegaly. Normoactive BS. MUSCULOSKELETAL: Moves all extremities. Strength/ROM intact without gross deformities. SKIN: Warm, dry, normal color. No rashes. NEURO: A&O X3. Speech clear. Cranial nerves II-XII intact. No ataxic movements. PSYCHIATRIC: Appropriate mood and affect. Normal interaction. Course Vital Signs Vital signs: Vital Signs Temperature 36.6 C 11/25/24 18:57 Pulse Rate 90 11/25/24 18:57 Respiratory Rate 18 11/25/24 18:57 Blood Pressure 109/66 11/25/24 18:57 Pulse Oximetry 100 11/25/24 18:57 Oxygen Delivery Room Air 11/25/24 18:57 Temperature 36.6 C 11/25/24 20:33 Pulse Rate 81 11/25/24 20:33 Respiratory Rate 18 11/25/24 20:33 Blood Pressure 97/62 L 11/25/24 20:33 Pulse Oximetry 100 11/25/24 20:33 Oxygen Delivery Room Air 11/25/24 18:57 MDM - Nausea/Vomiting/Diarrhea MDM Narrative Medical decision making narrative: Patient is a 24-year-old female who presents to the nausea and diarrhea that started on Sunday, 3 days ago. Patient endorses bilateral lower back pain and lower abdominal pain. She reports the diarrhea is yellow in color. Patient denies alcohol use and endorses occasional marijuana use. Since her symptoms started she reports she has had decreased p.o. intake. Patient endorses a history of ectopic and anemia. She denies any recent fevers, chest pain, or shortness of breath. Labs Ordered: CBC, CMP, UDS, UA, lipase Imaging Ordered: Ultrasound Ob less than 14 weeks Medications Ordered: 1 L normal saline IV bolus, Zofran 8 mg IV Results: Patient's ultrasound indicates of unknown location. No definite intrauterine gestational sac identified. Irregular, thickened endometrium, with several hypoechoic cystic areas, any one of which could represent an early gestational sac, without identifiable pole. No sonographic evidence of ectopic . Recommend close clinical and sonographic follow-up. Her CBC indicates a hemoglobin of 8.8, hematocrit of 29.3. Patient's chemistry indicates a sodium of 133, potassium of 3.3, glucose is 64. Her urinalysis indicates 1+ protein, 2+ ketones, 2+ leukocytes, 3-5 rbcs, and greater than 100 wbcs. Diagnosis: Early , urinary tract infection, dehydration Consults: OBGYN (outpatient) Patient Education/Shared MDM: Results of lab work and imaging shared with patient. She endorses mild improvement of symptoms following medication administration. Patient strongly advised to maintain hydration status upon discharge and follow-up with her OBGYN as soon as possible. She will be discharged home with a prescription for Reglan and Nitrofurantoin. Strict return precautions provided. Patient verbalized understanding and is in agreement with plan. Vital signs stable at time of discharge. All questions answered. Differential Diagnosis Differential diagnosis: Likely traveler's diarrhea, gastroenteritis, drug- induced nausea and vomiting, dehydration and other ( induced nausea, urinary tract infection) Lab Data Attestation: I reviewed the patient's lab results. 11/25/24 19:58 11/25/24 19:58 Labs: Lab Results 11/25/24 11/25/24 11/25/24 Range/Units 19:58 20:12 20:19 WBC 7.8 (4.5-10.0) K/mm3 RBC 4.27 (4.2-5.4) M/mm3 Hgb 8.8 L (12.0-15.0) g/dL Hct 29.3 L (37.0-47.0) % MCV 68.6 L (80-100) fl MCH 20.6 L (26-34) pg MCHC 30.0 L (32-36) g/dl RDW 19.4 H (11.5-14.5) % Plt Count 292 D (150-375) k/mm3 MPV 9.5 (7.4-10.4) fl Immature Gran % (Auto) 0.3 (0-0.5) % Neut % (Auto) 60.2 (45.5-73.1) % Lymph % (Auto) 26.3 (18.3-44.2) % [place] % (Auto) 11.6 H (2.6-8.5) % Eos % (Auto) 1.1 (0-4.4) % Baso % (Auto) 0.5 (0.2-1.2) % Lymph # (Auto) 2.06 (0.9-3.2) K/mm3 [place] # (Auto) 0.9 H (0.1-0.6) K/mm3 Eos # (Auto) 0.1 (0-0.3) K/mm3 Baso # (Auto) 0.0 (0.0-0.1) K/mm3 Abs Immat Gran (auto) 0.02 (0.00-0.031) K/mm3 Absolute Neuts (auto) 4.7 (1.3-6.7) K/mm3 Absolute Nucleated RBC 0.000 (0.0-0.012) K/mm3 Band Neutrophils % 0 (0-6) % Nucleated RBC % 0.0 (0.0-0.2) % Platelet Estimate Adequate (Adequate) Anisocytosis 1+ Ovalocytes 1+ Schistocytes None seen Sodium 133 L (137-145) mmol/L Potassium 3.3 L (3.4-5.0) mmol/L Chloride 104 (98-107) mmol/L Carbon Dioxide 22 (22-30) mmol/L Anion Gap 7 (4-12) mmol/L BUN 7 (7-17) mg/dL Creatinine 0.91 (0.7-1.0) mg/dL Estim Creat Clear Calc 69 ml/min Estimated GFR > 60 (59 - ) Glucose 64 L (65-110) mg/dL Calcium 9.6 (8.4-10.2) mg/dL Total Bilirubin 1.1 (0.2-1.3) mg/dL AST 31 (14-36) U/L ALT 16 (6-35) U/L Alkaline Phosphatase 38 (38-126) U/L Total Protein 8.1 (6.3-8.2) g/dL Albumin 4.5 (3.5-5.1) g/dL Lipase 107 (23-300) U/L Serum HCG, Qual Positive A Beta HCG, Quant 2043.30 mIU/ML Urine Color Dark yellow (Yellow) Urine Appearance Cloudy H (Clear) Urine pH 6.5 (5.0-9.0) Ur Specific [place] 1.035 (1.001-1.035) Urine Protein 1+ H (Negative) mg/dL Urine Glucose (UA) Negative (Negative) mg/dL Urine Ketones 2+ H (Negative) mg/dL Ur Blood (Man) Negative (Negative) Urine Nitrate Negative (Negative) Urine Bilirubin Negative (Negative) Urine Urobilinogen 1.0 (<2.0) mg/dL Add Ur Microanalysis Reviewed Leukocyte Esterase Rfl 2+ H (Negative) JAYE/UL Urine RBC 3-5 H (0-2) /hpf Urine WBC >100 H (0-3) /hpf Ur Squamous Epith Cells Moderate (Few) /hpf Urine Bacteria 2+ H /hpf Urine Casts 0-2 POC Urine HCG, Qual Positive (Negative) Urine Opiates Screen Negative (Negative) Urine Methadone Screen Negative (Negative) Ur Barbiturates Screen Negative (Negative) Ur Phencyclidine Scrn Negative (Negative) Ur Amphetamine Screen Negative (Negative) U Benzodiazepines Scrn Negative (Negative) Urine Cocaine Screen Negative (Negative) U Cannabinoids Screen Positive A (Negative) Imaging Data Attestation: I personally reviewed and interpreted this imaging study as follows: Radiologist's impression: Impressions Obstetrics Ultrasound 11/25/24 21:50 IMPRESSION: of unknown location. No definite intrauterine gestational sac identified. Irregular, thickened endometrium, with several hypoechoic cystic areas, any one of which could represent an early gestational sac, without identifiable pole. No sonographic evidence of ectopic . Recommend close clinical and sonographic follow-up. Discharge Plan Discharge Clinical Impression: Abdominal pain in early , Anemia affecting , Urinary tract infection affecting , Dehydration, mild, Hypokalemia Patient Disposition: Home Condition: Stable Instructions: Antibiotic Form, Acute Diarrhea (ED), Abdominal Pain in (ED), Urinary Tract Infection in (ED) Additional Instructions: Please return to the ER with any worsening symptoms. Follow-up with OBGYN as soon as possible. Take all medications as prescribed, including regularly scheduled medications. Patient Language: Wolof Prescriptions: New nitrofurantoin monohyd/m-cryst [Macrobid] 100 mg capsule 100 mg PO Q12H 7 Days Qty: 14 0RF Rx Instructions: must administer with a meal/food Vitamin Plus Low Iron 27 mg iron- 1 mg tablet 1 tablet PO DAILY Qty: 30 0RF metoclopramide HCl [Reglan] 10 mg tablet 10 mg PO Q6H PRN (Reason: nausea and vomiting) Qty: 30 0RF No Action acetaminophen [Mapap (acetaminophen)] 325 mg Tablet 650 mg PO Q6H PRN (Reason: Mild Pain (1-3) Or Headache) Qty: 20 0RF ibuprofen 600 mg Tablet 600 mg PO Q6H PRN (Reason: Cramping) Qty: 20 0RF Follow-up/Referrals: Jag Sarkar MD [Physician] - (OBGYN) Gladis,Love L., MD [Physician] - (OBGYN) PHYSICIAN NOT ON STAFF,NONSTAFF [Primary Care Provider] - Stand Alone Forms: Work/School Release IP Time of Disposition: 22:32
[2024-11-25 20:03] LABS: Hematocrit 29.3 % (37.0-47.0); Hemoglobin 8.8 g/dL (12.0-15.0); Immature Granulocyte Percent A 0.3 % (0-0.5); Lymphocytes Absolute Auto 2.06 K/mm3 (0.9-3.2); Mean Corpuscular HGB Conc 30.0 g/dl (32-36); Mean Corpuscular Hemoglobin 20.6 pg (26-34); Mean Corpuscular Volume 68.6 fl (80-100); Nucleated Red Blood Cells Absolute Auto 0.000 K/mm3 (0.0-0.012); Nucleated Red Blood Cells Perc 0.0 % (0.0-0.2); Platelet Count Result 292 k/mm3 (150-375); Red Blood Count 4.27 M/mm3 (4.2-5.4); White Blood Count 7.8 K/mm3 (4.5-10.0)
[2024-11-25] MEDS: SODIUM CHLORIDE 0.9% IV 1,000 ML 999 ML IV CONT (20:09)
[2024-11-25] MEDS: ONDANSETRON INJ 4 MG/2 ML VIAL 8 MG IV PUSH (20:11)
[2024-11-25 20:16] LABS: Lipase 107 U/L (23-300)
[2024-11-25 20:17] LABS: Alanine Aminotransferase 16 U/L (6-35); Albumin Level 4.5 g/dL (3.5-5.1); Alkaline Phosphatase 38 U/L (38-126); Anion Gap 7 mmol/L (4-12); Aspartate Amino Transferase 31 U/L (14-36); Bilirubin,Total 1.1 mg/dL (0.2-1.3); Blood Urea Nitrogen 7 mg/dL (7-17); Calcium 9.6 mg/dL (8.4-10.2); Carbon Dioxide 22 mmol/L (22-30); Chloride 104 mmol/L (98-107); Estimated CRCL calculation 69 ml/min; Estimated Glomerular Filt Rate > 60; Glucose 64 mg/dL (65-110); Potassium 3.3 mmol/L (3.4-5.0); Sodium 133 mmol/L (137-145); Total Protein 8.1 g/dL (6.3-8.2)
[2024-11-25 20:21] LABS: BEDSIDEPREGUCG Positive (Negative)
[2024-11-25 20:23] LABS: Anisocytosis 1+; Band Neutrophils Percent 0 % (0-6); Ovalocytes 1+; Schistocytes None Seen
[2024-11-25 20:29] LABS: SPREG INTERNAL CONTROL Positive; Serum Qual hCG Positive
[2024-11-25 20:33] VITALS: BP 97/62; PULSE 81; RESP 18; TEMP 36.6; O2SAT 100
[2024-11-25 20:40] LABS: Cannabinoid Screen Urine Positive (Negative)
[2024-11-25 20:43] LABS: Add Urine Microscopic? YES; Appearance Urine Cloudy (Clear); Glucose Urine UA Negative (Negative); Leukocyte Esterase Ur 2+ LEU/UL (Negative); Need Manual Microscopic Reviewed; Nitrate Urine Negative (Negative); Non Pathogenic Casts 0-2; Specific Grav Ur 1.035 (1.001-1.035)
[2024-11-25 21:57] LABS: Beta HCG Quantitative 2043.30 mIU/ML
[2024-11-25] MEDS: NITROFURANTOIN MONOHYD MACROCR 100 MG CAP PO (22:38)
[2024-11-25] MEDS: POTASSIUM CHLORIDE 20 MEQ ER TABLET 40 MEQ PO (22:38)
[2024-11-25 22:42] VITALS: BP 101/54; PULSE 68; RESP 18; TEMP 36.9; O2SAT 97
== END 2024-11-25 22:43 | disposition home or self-care (01) ==
PROVIDERS: Emergency Provider Registered Nurse
DX: O99.011 Anemia complicating pregnancy, first trimester (principal); D64.9 Anemia, unspecified; Z3A.00 Weeks of gestation of pregnancy not specified; O23.41 Unspecified infection of urinary tract in pregnancy, first trimester; N39.0 Urinary tract infection, site not specified; O99.281 Endocrine, nutritional and metabolic diseases complicating pregnancy, first trimester; E86.0 Dehydration; E87.6 Hypokalemia; O26.91 Pregnancy related conditions, unspecified, first trimester; R10.9 Unspecified abdominal pain
CPT/HCPCS: 36415; 76801; 76817; 80053; 80307; 81001; 81025; 83690; 84702; 84703; 85025; 96361; 96374; 99284; A9270; J2405; J7030

== ENCOUNTER 2025-01-21 19:46 | Emergency (ER) | payer BC, MEDICAID, SELFPAY ==
--- NOTE | ~2025-01-21 | XR_ITS ---
XR knee LT min 4V 01/21/2025 21:05 INDICATION: Left knee pain PROCEDURE: 4 views left knee COMPARISON: No prior studies for comparison. FINDINGS: Fracture, dislocation or subluxation is not identified. The soft tissues appear within normal limits. No foreign bodies are identified. IMPRESSION: 1: NO ACUTE BONE OR JOINT ABNORMALITY IDENTIFIED. Reviewed, dictated and finalized at location O.
--- NOTE | ~2025-01-21 | US_ITS ---
EXAMINATION:US venous doppler LE BI INDICATION:Lower extremity numbness and tingling TECHNIQUE: Multiple grayscale, color flow and Doppler images of the right and left lower extremity deep venous systems were obtained and reviewed. COMPARISON:No prior studies for comparison. FINDINGS: The common femoral, superficial femoral and popliteal veins demonstrate normal respiratory variation, augmentation and compressibility. Color flow is also seen within the posterior tibial, peroneal, greater saphenous and profunda veins. IMPRESSION: 1: No lower extremity deep venous thrombosis. Reviewed, dictated and finalized at location O.
[2025-01-21 19:53] VITALS: BP 104/65; PULSE 78; RESP 18; TEMP 36.7; O2SAT 100
--- NOTE | 2025-01-21 20:49 | ED_ITS ---
HPI - Extremity Problem General Chief complaint: Extremity Problem,Nontraumatic Stated complaint: leg pain, tingling Time Seen by Provider: 01/21/25 20:04 History of Present Illness HPI Narrative: Patient is a 24-year-old female who presents to the ER with lower extremity pain and tingling for the past 2-3 weeks. She reports the pain started in her left knee but has now radiated to both of her lower extremities. 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 She denies any chest pain, shortness of breath, dehydration injury, or recent fevers. Patient denies any control use, or any other pertinent medical history. She reports she had a miscarriage in October and reports she has no chance of at this time. Related Data Allergies Allergy/AdvReac Type Severity Reaction Status Date / Time No Known Allergies Allergy Verified 01/21/25 20:06 Review of Systems Review of Systems: All systems reviewed & are unremarkable except as noted in HPI and below PMFSH Family History Family History Other Unknown family medical history Social History Social History Smoking status: Never smoker Substance use: never Lack of Transportation: No Lack of Food: Never True Current Housing: I Have Housing Concerned About Future Housing: No Difficulty Paying Gas/Electric Bills: No Difficulty Paying for Meds: No Currently Unemployed: No Education: High School Diploma/GED Difficulty w/ Childcare or Family Care: No Spiritual care concerns: No Exam Narrative: GENERAL: Well appearing, well-nourished, non-toxic, in no acute distress. HEAD: Normocephalic, atraumatic. NECK: Supple. No adenopathy, no masses. RESPIRATORY: Airway patent, respirations nonlabored. Clear to auscultation bilaterally, no rales, rhonchi, wheezing. CARDIOVASCULAR: Regular rate and rhythm without murmurs, rubs, or gallops. Peripheral pulses 2+ and equal bilaterally. ABDOMINAL: Soft, nontender, nondistended, no hepatosplenomegaly. Normoactive BS. MUSCULOSKELETAL: Moves all extremities. Strength/ROM intact without gross deformities. + Chantel's sign bilaterally, No palpable edema either extremity SKIN: Warm, dry, normal color. No rashes. NEURO: A&O X3. Speech clear. Cranial nerves II-XII intact. No ataxic movements. PSYCHIATRIC: Appropriate mood and affect. Normal interaction. Course Vital Signs Vital signs: Vital Signs Temperature 36.7 C 01/21/25 19:53 Pulse Rate 78 01/21/25 19:53 Respiratory Rate 18 01/21/25 19:53 Blood Pressure 104/65 01/21/25 19:53 Pulse Oximetry 100 01/21/25 19:53 Temperature 36.7 C 01/21/25 19:53 Pulse Rate 78 01/21/25 19:53 Respiratory Rate 18 01/21/25 19:53 Blood Pressure 104/65 01/21/25 19:53 Pulse Oximetry 100 01/21/25 19:53 MDM - Extremity (Nontraumatic) MDM Narrative Medical decision making narrative: Patient is a 24-year-old female who presents to the ER with lower extremity pain and tingling for the past 2-3 weeks. She reports the pain started in her left knee but has now radiated to both of her lower extremities. 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 She denies any chest pain, shortness of breath, dehydration injury, or recent fevers. Patient denies any control use, or any other pertinent medical history. She reports she had a miscarriage in October and reports she has no chance of at this time. Labs Ordered: None necessary Imaging Ordered: Left knee x-ray, bilateral lower extremity Doppler ultrasound Medications Ordered: Toradol 60 mg IM Diagnosis: Left knee strain, bilateral lower extremity pain Patient Education/Shared MDM: Results of imaging shared with patient. She endorses improvement of symptoms following medication administration. Patient strongly advised to follow-up with her PCP as needed. CDC ASSOCIATE and patient concluded patient may have strained her left knee and has been walking differently, which has affected both of her lower extremities and resulted in bilateral pain. She will be discharged home with a prescription for ibuprofen 800 mg p.o. and Voltaren cream. Strict return precautions provided. Patient verbalized understanding and is in agreement with plan. Vital signs stable at time of discharge. All questions answered. Differential Diagnosis Differential diagnosis: Likely cellulitis, lower extremity edema, deep vein thrombosis of lower extremity and other (Muscle strain, knee strain) Discharge Plan Discharge Clinical Impression: Muscle strain of left knee, Acute pain of left knee, Numbness and tingling of both lower extremities Patient Disposition: Home Condition: Stable Instructions: Antibiotic Form, Leg Sprain (ED) Additional Instructions: Please return to the ER with any worsening symptoms. Follow-up with primary care provider as soon as possible. You may take ibuprofen 800 mg every 8 hours for pain control. Please use Voltaren cream to help relieve your leg discomfort. You may use the Maurice wrap to help support your left knee joint. Patient Language: Gambian Prescriptions: New ibuprofen 800 mg tablet 800 mg PO TID PRN (Reason: pain) Qty: 30 0RF diclofenac sodium [Voltaren Arthritis Pain] 1 % gel 4 g topical QID Qty: 50 0RF Rx Instructions: apply to single knee, ankle, foot; for foot includes sole/toes/top of foot No Action acetaminophen [Mapap (acetaminophen)] 325 mg Tablet 650 mg PO Q6H PRN (Reason: Mild Pain (1-3) Or Headache) Qty: 20 0RF ibuprofen 600 mg Tablet 600 mg PO Q6H PRN (Reason: Cramping) Qty: 20 0RF nitrofurantoin monohyd/m-cryst [Macrobid] 100 mg capsule 100 mg PO Q12H 7 Days Qty: 14 0RF Rx Instructions: must administer with a meal/food Vitamin Plus Low Iron 27 mg iron- 1 mg tablet 1 tablet PO DAILY Qty: 30 0RF metoclopramide HCl [Reglan] 10 mg tablet 10 mg PO Q6H PRN (Reason: nausea and vomiting) Qty: 30 0RF Follow-up/Referrals: PHYSICIAN,SOCIAL WELFARE RESEARCH WORKER [Primary Care Provider, Internal Medicine] Supa Ruiz MD [Physician, Family Practice] Referral Note: primary care provider Stand Alone Forms: Work/School Release IP Time of Disposition: 22:27
[2025-01-21] MEDS: KETOROLAC (*BKC) 60 MG/2 ML VIAL IM (20:55)
--- NOTE | 2025-01-21 20:59 | PC.NURSE ---
x-ray at bedside
[2025-01-21 22:30] VITALS: BP 105/70; PULSE 70; RESP 16; TEMP 36.6; O2SAT 98
== END 2025-01-21 22:55 | disposition home or self-care (01) ==
PROVIDERS: Emergency Provider Registered Nurse
DX: S86.912A Strain of unspecified muscle(s) and tendon(s) at lower leg level, left leg, initial encounter (principal); R20.2 Paresthesia of skin; R20.0 Anesthesia of skin; X58.XXXA Exposure to other specified factors, initial encounter
CPT/HCPCS: 73564; 93970; 96372; 99284; J1885